=== PATIENT | male | born 1955 | race Caucasian/White ===

== ENCOUNTER 2019-09-18 07:42 | Outpatient (CLI) | payer OTHER, SELFPAY ==
--- NOTE | ~2019-09-18 | XR_ITS ---
XR chest 2V DATE: 09/18/2019 08:50 INDICATION: Hypertension. Nicotine dependence. Type 2 diabetes mellitus. TECHNIQUE: PA and lateral views COMPARISON: 08/13/2006 2 view chest FINDINGS: Normal heart size. There is aortic calcification and mild unfolding. No hilar or mediasti nal enlargement. No pulmonary infiltrate or consolidation, pulmonary vascular congestion or pleural effusion or pneumothorax. IMPRESSION: No active cardiopulmonary disease Aortic atherosclerosis Reviewed, dictated and finalized at location A.
[2019-09-18 08:48] LABS: Basophils Absolute Auto 0.1 K/mm3 (0.0-0.1); Basophils Percent Auto 0.7 % (0.2-1.2); Eosinophils Absolute Auto 0.1 K/mm3 (0-0.3); Hematocrit 48.1 % (42.0-52.0); Hemoglobin 17.3 g/dL (14.0-18.0); Immature Granulocyte Absolute 0.08 K/mm3 (0.00-0.031); Immature Granulocyte Percent A 0.9 % (0-0.5); Lymphocytes Absolute Auto 3.64 K/mm3 (0.9-3.2); Lymphocytes Percent Auto 38.9 % (18.3-44.2); Mean Corpuscular Hemoglobin 33.7 pg (26-34); Mean Corpuscular Volume 93.6 fl (80-100); Mean Platelet Volume 9.5 fl (7.4-10.4); Monocytes Absolute Auto 0.7 K/mm3 (0.1-0.6); Monocytes Percent Auto 7.4 % (2.6-8.5); Neutrophils Absolute Auto 4.8 K/mm3 (1.3-6.7); Neutrophils Percent Auto 51.1 % (45.5-73.1); Platelet Count Result 253 k/mm3 (150-375); Red Blood Count 5.14 M/mm3 (4.6-6.20); Red Cell Distribution Width 11.9 % (11.5-14.5); White Blood Count 9.4 K/mm3 (4.5-10.0)
[2019-09-18 08:58] LABS: Hemoglobin A1C 7.5 % (<5.7)
[2019-09-18 09:02] LABS: Cholesterol 264 mg/dL (0-200); HDL Direct 49 mg/dL; Triglycerides 98 mg/dL (<150)
[2019-09-18 09:13] LABS: LDL Cholesterol Direct 183 mg/dL
[2019-09-18 09:14] LABS: Alanine Aminotransferase 38 U/L (4-50); Albumin Level 4.6 g/dL (3.5-5.1); Alkaline Phosphatase 81 U/L (38-126); Aspartate Amino Transferase 36 U/L (17-59); Bilirubin,Total 0.8 mg/dL (0.2-1.3); Blood Urea Nitrogen 13 mg/dL (9-20); Calcium 9.2 mg/dL (8.4-10.2); Carbon Dioxide 25 mmol/L (22-30); Chloride 102 mmol/L (98-107); Estimated Glomerular Filt Rate > 60; Glucose 169 mg/dL (75-110); Potassium 4.2 mmol/L (3.4-5.0); Sodium 138 mmol/L (137-145)
[2019-09-18 09:18] LABS: Creatinine Urine 19.5 mg/dL
[2019-09-18 09:22] LABS: MALB Creatinine Ratio 36.4 mg/g (0-30); Microalbumin Urine Random 7.1 mg/L (0-16.7)
[2019-09-18 10:03] LABS: Hepatitis C Virus Antibody Negative (Negative)
== END 2019-09-18 07:43 | disposition home or self-care (01) ==
PROVIDERS: PCP Family Medicine; Visit Provider Family Medicine
DX: E11.9 Type 2 diabetes mellitus without complications (principal); F17.200 Nicotine dependence, unspecified, uncomplicated; I10 Essential (primary) hypertension; E78.2 Mixed hyperlipidemia; I70.0 Atherosclerosis of aorta
CPT/HCPCS: 36415; 71046; 80053; 80061; 82043; 83036; 85025; 86803

== ENCOUNTER 2019-12-05 07:01 | Outpatient (CLI) | payer OTHER, MEDICARE, SELFPAY ==
--- NOTE | ~2019-12-05 | CT_ITS ---
EXAMINATION: CT lung screening EXAM DATE: 12/05/2019 07:56 INDICATION: Personal history of nicotine dependence. TECHNIQUE: Spiral low dose CT of the chest without contrast. Axial, coronal and sagittal images were reviewed. The dose-length product (DLP) for this examination was 138.69 mGy-cm. The exposure was t ailored according to patient size (auto mA exposure control), and iterative reconstruction (ASIR) was used as additional dose reduction technique. There is no prior study for comparison. FINDINGS: Moderate peripheral paraseptal emphysema. Tracheobronchial tree is patent. There is no mediastinal, hilar or axillary lymphadenopathy. There are no pleural or pericardial effusions. Th ere is no pneumothorax. Heart normal in size. There is a left ventricular apical endocardial fat de position from prior infarction. There is severe coronary arterial calcification, arterial sclerosis. Adrenal adenomas. There is thoracic spondylosis without osteoblastic or osteolytic lesions identifie d. IMPRESSION: 1. Lung-RADS category 1S, negative (<1%chance of malignancy); recommend continued LDCT screening in 1 year. 2. Dense coronary artery calcifications with prior apical infarction; recommend cardiology consult i f not previously evaluated. Reviewed, dictated and finalized at location A. IMPRESSION: 1. Lung-RADS category 1S, negative (<1%chance of malignancy); recommend contin ued LDCT screening in 1 year. 2. Dense coronary artery calcifications with prior apical infarction; recommen d cardiology consult if not previously evaluated.
--- NOTE | 2019-12-05 08:00 | EST_ITS ---
Patient Info Name: Jared Mullins Age: 64 years : 1955 Gender: Male Ht: 72 in Wt: 190 lbs BSA: 2.10 m2 Exam Date: 12/05/2019 8:23 AM Exam Location: [facility] Patient Status: Outpatient Admit Date: 12/05/2019 Staff Ordering Physician: Sabine Childs MD Verifier Operator: Jose Curtis RDCS, RT Attending Provider: VERÓNICA CRUZ DO Referring Physician: Naz SMYTH; Exercise Technologist: Nora Montes RDCS Exercise Physician: Verónica Cruz DO Exam Type: CA stress echo Study Info Indications Z01.818 - Encounter for other preprocedural examination E78.2 - Mixed hyperlipidemia I10 - Essential (primary) hypertension Treadmill exercise stress echocardiogram is performed. Summary 1. 1. Inconclusive Angel exercise stress test for ischemic ST changes by ECG criteria as it is a submaximal stress test, achieving only 70% MPHR for age group. 2. 2. Poor functional capacity, achieving 6 METs of workload. 3. 3. Appropriate HR response to exercise. Baseline hypertension. 4. 4. Appropriate HR recovery at 1 minute post exercise. 5. 5. Inconclusive stress echocardiogram for ischemia by wall motion analysis due to suboptimal sonographic images. 6. 6. Patient informed of the above results. Stress Echo Findings Left Ventricle Suboptimal images as patient unable to hold breath when needed for image acquisition. Left Ventricle Normal LV systolic function, no wall motion abnormality. Protocol: Angel Stress ECG Details Stage: REST Duration (min): 3 min : 32 sec Speed (mph): 0.0 Grade (%): 0 HR (bpm): 67 SBP (mmHg): 158 DBP (mmHg): 86 METS: --- Stage: REST Duration (min): 10 min : 17 sec Speed (mph): 0.0 Grade (%): 0 HR (bpm): 69 SBP (mmHg): 158 DBP (mmHg): 86 METS: --- Stage: STAGE 1 Duration (min): 1 min : 0 sec Speed (mph): 1.7 Grade (%): 10 HR (bpm): 87 SBP (mmHg): 158 DBP (mmHg): 86 METS: --- Stage: STAGE 1 Duration (min): 2 min : 0 sec Speed (mph): 1.7 Grade (%): 10 HR (bpm): 98 SBP (mmHg): 158 DBP (mmHg): 86 METS: --- Stage: STAGE 1 Duration (min): 3 min : 0 sec Speed (mph): 1.7 Grade (%): 10 HR (bpm): 103 SBP (mmHg): 201 DBP (mmHg): 119 METS: --- Stage: STAGE 2 Duration (min): 0 min : 52 sec Speed (mph): 0.0 Grade (%): 0 HR (bpm): 106 SBP (mmHg): 198 DBP (mmHg): 106 METS: --- Stage: RECOVERY Duration (min): 0 min : 7 sec Speed (mph): 0.0 Grade (%): 0 HR (bpm): 104 SBP (mmHg): 198 DBP (mmHg): 106 METS: --- Stage: RECOVERY Duration (min): 1 min : 7 sec Speed (mph): 0.0 Grade (%): 0 HR (bpm): 88 SBP (mmHg): 198 DBP (mmHg): 106 METS: --- Stage: RECOVERY Duration (min): 2 min : 7 sec Speed (mph): 0.0 Grade (%): 0 HR (bpm): 82 SBP (mmHg): 198 DBP (mmHg): 106 METS: --- Stage: RECOVERY Duration (min): 3 min : 7 sec Speed (mph): 0.0 Grade (%): 0 HR (bpm): 82 SBP (mm
== END 2019-12-05 07:02 | disposition home or self-care (01) ==
LOC: ANHIMG 07:15
PROVIDERS: PCP Family Medicine; Visit Provider Family Medicine
DX: Z87.891 Personal history of nicotine dependence (principal); E11.9 Type 2 diabetes mellitus without complications; I10 Essential (primary) hypertension; E78.2 Mixed hyperlipidemia
CPT/HCPCS: 93351; G0297

== ENCOUNTER 2020-01-09 07:16 | Outpatient (CLI) | payer MEDICARE, SELFPAY ==
[2020-01-09 08:24] LABS: Cholesterol 246 mg/dL (0-200); HDL Direct 46 mg/dL; Triglycerides 100 mg/dL (<150)
[2020-01-09 08:35] LABS: LDL Cholesterol Direct 192 mg/dL
== END 2020-01-09 07:17 | disposition home or self-care (01) ==
PROVIDERS: PCP Family Medicine; Visit Provider Internal Medicine Cardiovascular Disease
DX: I25.10 Atherosclerotic heart disease of native coronary artery without angina pectoris (principal); I25.2 Old myocardial infarction; Z79.899 Other long term (current) drug therapy
CPT/HCPCS: 36415; 80061

== ENCOUNTER 2020-04-03 06:51 | Outpatient (CLI) | payer MEDICARE, SELFPAY ==
[2020-04-03 07:59] LABS: Cholesterol 133 mg/dL (0-200); HDL Direct 56 mg/dL; Triglycerides 69 mg/dL (<150)
[2020-04-03 08:11] LABS: LDL Cholesterol Direct 63 mg/dL
== END 2020-04-03 06:52 | disposition home or self-care (01) ==
PROVIDERS: PCP Family Medicine; Visit Provider Internal Medicine Cardiovascular Disease
DX: I25.10 Atherosclerotic heart disease of native coronary artery without angina pectoris (principal); E78.5 Hyperlipidemia, unspecified
CPT/HCPCS: 36415; 80061

== ENCOUNTER 2020-05-15 06:56 | Outpatient (CLI) | payer MEDICARE, SELFPAY ==
[2020-05-15 07:44] LABS: Alanine Aminotransferase 25 U/L (4-50); Albumin Level 4.4 g/dL (3.5-5.1); Alkaline Phosphatase 74 U/L (38-126); Anion Gap 5 mmol/L (8-16); Aspartate Amino Transferase 27 U/L (17-59); Bilirubin,Total 0.6 mg/dL (0.2-1.3); Blood Urea Nitrogen 17 mg/dL (9-20); Calcium 9.1 mg/dL (8.4-10.2); Carbon Dioxide 31 mmol/L (22-30); Chloride 100 mmol/L (98-107); Estimated Glomerular Filt Rate > 60; Glucose 132 mg/dL (75-110); Potassium 4.4 mmol/L (3.4-5.0); Sodium 136 mmol/L (137-145)
[2020-05-15 07:46] LABS: Hemoglobin A1C 6.2 % (<5.7)
== END 2020-05-15 06:57 | disposition home or self-care (01) ==
PROVIDERS: PCP Family Medicine; Visit Provider Physician Assistant Medical
DX: E11.9 Type 2 diabetes mellitus without complications (principal)
CPT/HCPCS: 36415; 80053; 83036

== ENCOUNTER 2020-11-01 06:51 | Outpatient (CLI) | payer MEDICARE, SELFPAY ==
[2020-11-01 07:29] LABS: Creatinine Urine 36.6 mg/dL
[2020-11-01 07:39] LABS: Alanine Aminotransferase 19 U/L (4-50); Albumin Level 4.2 g/dL (3.5-5.1); Alkaline Phosphatase 74 U/L (38-126); Anion Gap 5 mmol/L (8-16); Aspartate Amino Transferase 25 U/L (17-59); Bilirubin,Total 0.8 mg/dL (0.2-1.3); Blood Urea Nitrogen 16 mg/dL (9-20); Calcium 8.9 mg/dL (8.4-10.2); Carbon Dioxide 26 mmol/L (22-30); Chloride 100 mmol/L (98-107); Cholesterol 168 mg/dL (0-200); Estimated Glomerular Filt Rate > 60; Glucose 154 mg/dL (65-110); HDL Direct 67 mg/dL; Potassium 3.9 mmol/L (3.4-5.0); Sodium 131 mmol/L (137-145); Triglycerides 73 mg/dL (<150)
[2020-11-01 07:50] LABS: LDL Cholesterol Direct 84 mg/dL
[2020-11-01 08:11] LABS: MALB Creatinine Ratio 16.4 mg/g (0-30); Microalbumin Urine Random < 6.0 mg/L (0-16.7)
[2020-11-01 09:41] LABS: Hemoglobin A1C 6.4 % (<5.7)
== END 2020-11-01 06:52 | disposition home or self-care (01) ==
LOC: ANHLAB 06:54
PROVIDERS: PCP Family Medicine; Visit Provider Family Medicine
DX: E11.9 Type 2 diabetes mellitus without complications (principal)
CPT/HCPCS: 36415; 80053; 80061; 82043; 83036

== ENCOUNTER 2020-12-03 08:23 | Emergency (ER) | payer MEDICARE, SELFPAY ==
--- NOTE | ~2020-12-03 | XR_ITS ---
EXAMINATION: XR ribs LT 2V w CXR 2V DATE: 12/03/2020 09:19 INDICATION: Left rib pain post fall 2 days prior TECHNIQUE: PA and lateral views of the chest and 3 views of the left ribs were obtained. COMPARISON: Chest radiograph dated 09/18/[address] dated 12/05/2019 . Left shoulder radiographs dated 12/03/2020 FINDINGS: Minimally displaced fracture of the posterolateral left rib is poorly visualized on the current radio graphs which is more clearly evident on the immediately subsequent left shoulder radiographs. No othe r rib fractures identified. Subtle bullous emphysema at the periphery of both lungs. Mild bibasilar a telectasis. No pleural effusion or pneumothorax. Cardiomediastinal silhouette is normal. IMPRESSION: 1. Minimally displaced posterolateral left eighth rib fracture better appreciated on the left shoulde r radiographs. 2. Mild peripheral bullous emphysema. No pneumothorax. Reviewed, dictated and finalized at location A. IMPRESSION: 1. Minimally displaced posterolateral left eighth rib fracture better appreciat ed on the left shoulder radiographs. 2. Mild peripheral bullous emphysema. No pneumothorax.
--- NOTE | ~2020-12-03 | XR_ITS ---
EXAMINATION: XR shoulder LT min 2V DATE: 12/03/2020 09:19 INDICATION: Left shoulder pain post fall TECHNIQUE: AP internally and externally rotated, AP oblique externally rotated and transscapular Y vi ews of the left shoulder were obtained. COMPARISON: None FINDINGS: Normal alignment. No fracture at the left shoulder. There is however a minimally displaced fracture at the posterolateral left eighth rib. Minimal glenohumeral osteoarthritis and moderate acromioclavic ular osteoarthritis. Soft tissues are unremarkable. 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 No pneumothorax. IMPRESSION: 1. Minimally displaced posterior lateral left eighth rib fracture. 2. No acute osseous abnormality left shoulder with moderate acromial clavicular osteoarthritis. Reviewed, dictated and finalized at location A.
--- NOTE | 2020-12-03 08:26 | ED.FALL ---
HPI - Fall General Chief Complaint: Fall Stated Complaint: fall, left rib pain Time Seen by Provider: 12/03/20 08:26 Source: patient Mode of arrival: ambulatory Limitations: no limitations History of Present Illness HPI Narrative: The patient is a 65 yo male with a history of HTN, HLD who presents to the ER for evaluation of rib pain following a ground level fall. Patient states that he tripped while walking his dog, causing him to fall onto his left side two days ago. Patient with left shoulder pain, left sided rib pain. Patient also hurt his left knee with the fall. Patient was feeling better and now with worsening left rib pain this morning. No central chest pain, dyspnea, diaphoresis. No palpitations. Pt denies currently lower extremity pain. Pt took percocet for pain that did improve it. He has also used a binder to help with pain. Patient did some power washing yesterday which exacerbated his left sided rib pain, prompting his visit today. Related Data Home Medications Medication Instructions Recorded Confirmed aspirin 81 mg chewable tablet 81 mg PO DAILY 02/18/19 11/02/20 Allergies Allergy/AdvReac Type Severity Reaction Status Date / Time metformin Allergy Unknown hot flashes Verified 12/03/20 08:37 methylprednisolone Allergy Unknown severe leg Verified 12/03/20 08:37 cramps simvastatin Allergy Unknown severe leg Verified 12/03/20 08:37 cramps atorvastatin AdvReac myalgias Verified 12/03/20 08:37 rosuvastatin AdvReac myalgias Verified 12/03/20 08:37 Review of Systems Review of Systems: CONSTITUTIONAL: Denies fever, chills, or sweats. EYES: Denies visual changes, redness, or discharge. ENT: Denies rhinorrhea, congestion, sore throat, or otalgia. CARDIOVASCULAR: Denies chest pain, palpitations, or edema. RESPIRATORY: Denies cough or dyspnea. Reports left chest wall pain. GASTROINTESTINAL: Denies abdominal pain, nausea, vomiting, or diarrhea. GENITOURINARY: Denies dysuria or hematuria. SKIN: Denies rash or itching. Reports abrasion to left shoulder MUSCULOSKELETAL: Reports rib pain, denies other extremity pain NEUROLOGIC: Denies headache, numbness, or weakness. [facility] Past Medical History Medical History Cubital tunnel syndrome Tinnitus Surgical History Surgical History History of appendectomy (~2007) History of carpal tunnel repair (~2017) bilateral History of heart artery stent (~2009) 2 History of knee surgery (~2005) left meniscus tear S/P cubital tunnel release (~2018) bilateral Family History Family History Father Hypertension Family history of cardiovascular disease Mother Family history of malignant neoplasm of breast in first degree relative Other Family history of malignant neoplasm of breast Social History Social History Smoking packs per day: 1 Smoking cigarettes per day: 20.0 Tobacco type: cigarettes Second hand tobacco smoke exposure: Yes Alcohol intake: current Drinks per week: 14 Substance use: never Substance use type: does not use Gender identity (if verbalized by the patient): Male Spiritual care concerns: No Agree to blood products: Yes Exam Narrative: Nursing note and vitals reviewed. CONSTITUTIONAL: The patient appears well-developed and well-nourished. No distress. HEAD: Normocephalic and atraumatic. EYES: PERRL, EOMI, normal conjunctiva, anicteric EARS: External ears clear bilaterally, no hemotympanum MOUTH: OP clear, no erythema, exudates NECK: midline trachea, supple, FROM. No midline cervical spinal tenderness. CARDIOVASCULAR: Normal rate, regular rhythm, normal heart sounds and intact distal pulses. No murmurs, rubs, gallops. PULMONARY: Effort normal and breath sounds normal. No respiratory distress. The patient
[2020-12-03 08:29] VITALS: PULSE 69; RESP 18; TEMP 36.7; O2SAT 97
[2020-12-03] MEDS: LIDOCAINE 5% PATCH 1 PATCH TRANSDERM (09:44)
== END 2020-12-03 11:10 | disposition home or self-care (01) ==
PROVIDERS: Emergency Provider Emergency Medicine; PCP Family Medicine
DX: S22.32XA Fracture of one rib, left side, initial encounter for closed fracture (principal); I10 Essential (primary) hypertension; E78.5 Hyperlipidemia, unspecified; Z95.5 Presence of coronary angioplasty implant and graft; F17.210 Nicotine dependence, cigarettes, uncomplicated; Z79.82 Long term (current) use of aspirin; J43.9 Emphysema, unspecified; W01.0XXA Fall on same level from slipping, tripping and stumbling without subsequent striking against object, initial encounter; Y93.K1 Activity, walking an animal
CPT/HCPCS: 71046; 71100; 73030; 99284; A9270

== ENCOUNTER 2021-05-02 07:06 | Outpatient (CLI) | payer MEDICARE, SELFPAY ==
[2021-05-02 07:51] LABS: Alanine Aminotransferase 25 U/L (4-50); Albumin Level 4.5 g/dL (3.5-5.1); Alkaline Phosphatase 73 U/L (38-126); Anion Gap 6 mmol/L (8-16); Aspartate Amino Transferase 26 U/L (17-59); Bilirubin,Total 0.7 mg/dL (0.2-1.3); Blood Urea Nitrogen 21 mg/dL (9-20); Calcium 8.8 mg/dL (8.4-10.2); Carbon Dioxide 26 mmol/L (22-30); Chloride 102 mmol/L (98-107); Cholesterol 201 mg/dL (0-200); Estimated Glomerular Filt Rate > 60; Glucose 130 mg/dL (65-110); HDL Direct 58 mg/dL; Potassium 4.1 mmol/L (3.4-5.0); Sodium 134 mmol/L (137-145); Triglycerides 111 mg/dL (<150)
[2021-05-02 08:02] LABS: LDL Cholesterol Direct 109 mg/dL
[2021-05-02 08:03] LABS: Hemoglobin A1C 6.4 % (<5.7)
[2021-05-02 08:17] LABS: Creatinine Urine 39.8 mg/dL
[2021-05-02 08:21] LABS: MALB Creatinine Ratio 20.6 mg/g (0-30); Microalbumin Urine Random 8.2 mg/L (0-16.7)
[2021-05-02 08:24] LABS: Prostate Specific Antigen 0.6 ng/mL (< OR = 4.0)
== END 2021-05-02 07:07 | disposition home or self-care (01) ==
LOC: ANHLAB 07:08
PROVIDERS: PCP Family Medicine; Visit Provider Family Medicine
DX: E11.9 Type 2 diabetes mellitus without complications (principal); E78.2 Mixed hyperlipidemia; Z12.5 Encounter for screening for malignant neoplasm of prostate
CPT/HCPCS: 36415; 80053; 80061; 82043; 83036; 84153; G0103

== ENCOUNTER 2021-05-27 06:46 | Outpatient (CLI) | payer MEDICARE, SELFPAY ==
--- NOTE | ~2021-05-27 | CT_ITS ---
EXAMINATION: CT lung screening DATE: 05/27/2021 07:06 INDICATION: Personal history of nicotine dependence, current smoker with 30 pack year history TECHNIQUE: Computed tomography (CT) of the chest was performed without intravenous contrast. The dose -length product (DLP) was 164.99 mGy-cm. Automated exposure control and iterative reconstruction tech Shooger were employed. COMPARISON: 12/05/2019 FINDINGS: There is moderate emphysema. No suspicious pulmonary nodules are identified. There is no pl eural effusion or pneumothorax. The lungs are free of acute opacities. No pathologically enlarged tho racic lymph nodes are identified. The heart size is normal. There is calcified coronary artery athero sclerosis. Subendocardial fat deposition is noted in the left ventricle. There is also slight ventric ular dilatation. Findings are consistent with prior myocardial infarction. Low attenuation thickening of the adrenal glands likely reflects adrenal adenomas. There is mild thoracic spondylosis. IMPRESSION: 1. Lung-RADS category 1: Negative. Continue annual screening with noncontrast low-dose chest CT in 12 months. Reviewed, dictated and finalized at location B. IMPRESSION: 1. Lung-RADS category 1: Negative. Continue annual screening with noncontrast l ow-dose chest CT in 12 months.
== END 2021-05-27 06:47 | disposition home or self-care (01) ==
PROVIDERS: PCP Family Medicine; Visit Provider Family Medicine
DX: Z87.891 Personal history of nicotine dependence (principal)
CPT/HCPCS: 71271

== ENCOUNTER 2021-07-22 10:01 | Inpatient (IN) | payer MEDICARE, SELFPAY ==
[2021-07-22] VITALS (10 sets, daily range): BP systolic 97–146; BP diastolic 56–109; PULSE 79–89; RESP 16–24; TEMP 36.6–39.4; O2SAT 92–100; BMI 24.4
--- NOTE | ~2021-07-22 | XR_ITS ---
EXAMINATION: XR shoulder LT min 2V DATE: 07/22/2021 18:04 INDICATION: Left shoulder pain. TECHNIQUE: 4 views of left shoulder were obtained. COMPARISON: Left shoulder radiographs 12/03/2020 FINDINGS: Bone alignment is normal. No acute fracture. There is an old healed fracture of left eighth rib. There is severe osteoarthritis of acromioclavicular joint and mild osteoarthritis of glenohumer al joint. IMPRESSION: 1. Polyarticular osteoarthritis. Reviewed, dictated and finalized at location A.
--- NOTE | ~2021-07-22 | US_ITS ---
EXAMINATION:US venous doppler LE RT INDICATION:Right leg pain TECHNIQUE: Multiple grayscale, color flow and Doppler images of the right lower extremity deep venous systems were obtained and reviewed. COMPARISON:No prior studies for comparison. FINDINGS: The common femoral, superficial femoral and popliteal veins demonstrate normal respiratory variation, augmentation and compressibility. Color flow is also seen within the posterior tibial, pe roneal, greater saphenous and profunda veins. IMPRESSION: 1: No lower extremity deep venous thrombosis. Reviewed, dictated and finalized at location B.
--- NOTE | ~2021-07-22 | XR_ITS ---
EXAM: XR ankle RT min 3V, XR foot RT min 3V DATE: 07/26/2021 13:50 HISTORY: edema, pain . COMPARISON: None available. FINDINGS: Normal mineralization. No fracture or dislocation. No lytic or blastic lesion. Moderate alarcon llux valgus. Severe degenerative change at the first MTP with mild degenerative changes in the midfoo t and tibiotalar joint. Plantar enthesopathy. No erosion or periosteal change. Soft tissues within no rmal limits. IMPRESSION: No acute osseous finding in the right foot or right ankle. Reviewed, dictated and finalized at location K. IMPRESSION: No acute osseous finding in the right foot or right ankle.
--- NOTE | ~2021-07-22 | XR_ITS ---
EXAMINATION: XR chest 2V DATE: 07/28/2021 13:47 INDICATION: Cough. TECHNIQUE: Frontal and lateral views of the chest were obtained. COMPARISON: Chest 2 views 07/22/2021, chest CT 05/27/2021 FINDINGS: There are small pleural effusions. There is a diffuse interstitial pattern in the lungs con sistent mild pulmonary edema. There are airspace opacities at the lung bases, likely atelectasis. No pneumothorax. The heart size is normal. There is an old healed left rib fracture. IMPRESSION: 1. Mild pulmonary edema. 2. Small pleural effusions. Reviewed, dictated and finalized at location A.
--- NOTE | ~2021-07-22 | XR_ITS ---
XR chest 2V 07/22/2021 10:49 Indication: Left-sided chest pain Procedure: 2 view chest Comparison: 12/03/2020 Findings: There is a healed left rib fracture. The lungs are hyperinflated which is consistent with, but not diagnostic of chronic obstructive pulmonary disease. No focal air space disease, pulmonary ed marzena, pleural effusion or suspected pneumothorax. Mild chronic interstitial infiltrates. Impression: 1: No acute cardiopulmonary disease. Reviewed, dictated and finalized at location B. Impression: 1: No acute cardiopulmonary disease.
--- NOTE | 2021-07-22 10:11 | ECG_ITS ---
Measurements Intervals [place] Rate: 86 P: 11 NV: 189 QRS: -35 QRSD: 117 T: 57 QT: 362 QTc: 433 Interpretive Statements SINUS RHYTHM LEFT AXIS DEVIATION POSSIBLE LEFT ATRIAL ENLARGEMENT BORDERLINE R WAVE PROGRESSION, ANTERIOR LEADS BASELINE ARTIFACT- I, II, III, AVR, AVL, AVF, V6 BORDERLINE ECG Electronically Signed On 07-22-2021 11:53:17 CDT by Mikey Morocho D.O.
[2021-07-22 10:31] LABS: Basophils Percent Auto 0.2 % (0.2-1.2); Hematocrit 43.1 % (42.0-52.0); Hemoglobin 14.8 g/dL (14.0-18.0); Immature Granulocyte Absolute 0.15 K/mm3 (0.00-0.031); Lymphocytes Absolute Auto 1.15 K/mm3 (0.9-3.2); Lymphocytes Percent Auto 7.5 % (18.3-44.2); Mean Corpuscular HGB Conc 34.3 g/dl (32-36); Mean Corpuscular Hemoglobin 33.8 pg (26-34); Mean Corpuscular Volume 98.4 fl (80-100); Mean Platelet Volume 10.5 fl (7.4-10.4); Monocytes Percent Auto 6.4 % (2.6-8.5); Neutrophils Absolute Auto 13.1 K/mm3 (1.3-6.7); Neutrophils Percent Auto 84.9 % (45.5-73.1); Platelet Count Result 121 k/mm3 (150-375); Red Blood Count 4.38 M/mm3 (4.6-6.20); Red Cell Distribution Width 13.2 % (11.5-14.5); White Blood Count 15.4 K/mm3 (4.5-10.0)
[2021-07-22 10:44] LABS: Alanine Aminotransferase 23 U/L (6-50); Albumin Level 3.8 g/dL (3.5-5.1); Alkaline Phosphatase 70 U/L (38-126); Anion Gap 10 mmol/L (8-16); Aspartate Amino Transferase 32 U/L (17-59); Blood Urea Nitrogen 42 mg/dL (9-20); Calcium 8.2 mg/dL (8.4-10.2); Carbon Dioxide 21 mmol/L (22-30); Chloride 94 mmol/L (98-107); Estimated CRCL calculation 80 ml/min; Estimated Glomerular Filt Rate > 60; Glucose 371 mg/dL (65-110); Sodium 125 mmol/L (137-145)
[2021-07-22 11:27] LABS: Add Urine Microscopic? YES; Appearance Urine Clear (Clear); Bilirubin Urine Negative (Negative); Blood Urine Negative (Negative); Color Urine Yellow (Yellow); Glucose Urine UA 3+ mg/dL (Negative); Ketones Urine 1+ mg/dL (Negative); Leukocyte Esterase Ur Negative LEU/UL (Negative); Nitrate Urine Negative (Negative); Protein Urine Trace mg/dL (Negative); Specific Grav Ur 1.015 (1.001-1.035); Urobilinogen Urine 0.2 mg/dL (<2.0); pH Urine 5.5 (5.0-9.0)
[2021-07-22 11:34] LABS: Bacteria Urine 3+ /hpf; Mucus Urine Rare /lpf; RBC Urine 0-2 /hpf (0-2); WBC Urine 0-3 /hpf
--- NOTE | 2021-07-22 11:41 | PC.NURSE ---
Patient reports pain with palpation of posterior calf. Patient also reports history of a DVT many years ago. Denies SOB or chest pain.
--- NOTE | 2021-07-22 11:56 | ED.GENADULT ---
HPI - General Adult General Chief complaint: Weakness Stated complaint: weakness Time Seen by Provider: 07/22/21 11:55 Source: patient and family Limitations: no limitations History of Present Illness HPI narrative: 65 years old white male presented to the ED with severe pain at the right buttock all the way down to his right foot started 3 days ago after strenuous physical work including up and down a ladder numerous of time with a steel boot. Associated with chills, and fever which gradually getting worse. 1 day later patient noticed redness and swelling of the right foot. History of diabetes, hypertension Related Data Home Medications Medication Instructions Recorded Confirmed aspirin 81 mg chewable tablet 81 mg PO DAILY 02/18/19 07/22/21 alirocumab [Praluent Syringe] mg SUBCUT 07/22/21 empagliflozin-metformin [Synjardy 1 tablet PO DAILY 07/22/21 07/22/21 XR] Allergies Allergy/AdvReac Type Severity Reaction Status Date / Time metformin Allergy Unknown hot flashes Verified 05/31/21 09:18 methylprednisolone Allergy Unknown severe leg Verified 05/31/21 09:18 cramps simvastatin Allergy Unknown severe leg Verified 05/31/21 09:18 cramps sertraline AdvReac Intermediate diarrhea, Verified 05/31/21 09:41 sleep disruption atorvastatin AdvReac myalgias Verified 05/31/21 09:18 rosuvastatin AdvReac myalgias Verified 05/31/21 09:18 Review of Systems Review of Systems: All systems reviewed & are unremarkable except as noted in HPI and below PMFSH Past Medical History Medical History Controlled substance agreement signed 02-18-19 3.2.22 no longer on controlled substances. Cubital tunnel syndrome Right rotator cuff tear arthropathy Tinnitus Umbilical hernia without mention of obstruction or gangrene Surgical History Surgical History History of appendectomy (~2007) History of carpal tunnel repair (~2016) bilateral History of heart artery stent (~2009) 2 History of knee surgery (~2005) left meniscus tear S/P cubital tunnel release (~2017) bilateral Family History Family History Father Hypertension Family history of cardiovascular disease Mother Family history of malignant neoplasm of breast in first degree relative Other Family history of malignant neoplasm of breast Social History Social History Smoking packs per day: 1 Smoking cigarettes per day: 20.0 Tobacco type: cigarettes Second hand tobacco smoke exposure: Yes Alcohol intake: current Drinks per week: 14 Substance use: never Substance use type: does not use Gender identity (if verbalized by the patient): Male Spiritual care concerns: No Agree to blood products: Yes Exam Narrative: General appearance: Well-developed, well-nourished Skin: Normal color Head: Normocephalic, nontraumatic Eyes: Clear conjunctiva ENT: Oropharynx normal, ears normal, nose normal Neck: Supple, nontender Chest and respiratory: Airway patent, no respiratory distress, no accessory muscle use Heart: Regular rate/rhythm Abdomen: Soft, nontender, no organomegaly, quiet bowel sounds Vascular: Normal peripheral pulses, normal capillary refill. Musculoskeletal: Right lower extremity showed diffuse tenderness, no swelling, no deformity, no rash, right foot and ankle showed diffuse erythema, warm to touch, diffusely tender. Right straight leg raising test is positive Neurologic: Alert and oriented ?3, SOLAR PANEL TECHNICIAN is normal as tested, no gross motor deficit
[2021-07-22] MEDS: ONDANSETRON INJ 4 MG/2 ML VIAL IV PUSH (12:23)
[2021-07-22] MEDS: MORPHINE SULFATE (*CRX) 4 MG/ML INJ IV PUSH ×2 (12:24→14:18)
[2021-07-22 12:38] LABS: Lactic Acid Reflex 2.6 mmol/L (0.7-2.0)
[2021-07-22 13:16] LABS: SARS-CoV-2 RNA PCR Negative
--- NOTE | 2021-07-22 13:20 | PC.NURSE ---
Patient taken to Doppler, Vanc not started yet because patient not in room.
--- NOTE | 2021-07-22 14:15 | PM.IMHP ---
H&P: HPI History of Present Illness Date/Time: 07/22/21 14:15 Chief Complaint: Pain all over. Narrative: This is a 65-year-old male smoker with coronary artery disease, hypertension, dyslipidemia, and diabetes who presented to the emergency department with complaints of pain all over. On Sunday he spent 6-1/2 hours outside power washing his cabin. The next day he was stiff and sore all over and unfortunately his diffuse muscle cramps and soreness have gotten worse instead of better. Today he could barely make it to the car with the help of his daughter and due to generalized weakness and significant pain in his right lower leg and foot with weightbearing. His appetite and oral intake have been poor the last 2 days which he has attributed to a recent increase in his metformin dose. In the ER he was noted to have cellulitis of the right foot and he is being admitted in this setting. Currently he is feeling somewhat better after receiving IV pain medication. He endorses a subjective fever. He denies syncope and near syncope. No sinus congestion, rhinorrhea, otalgia, odynophagia, or cough. He denies sick contacts. No open wounds to his knowledge. He has not had vomiting, diarrhea, or dysuria. Review of Systems Review of Systems: Twelve systems were reviewed. Diabetes is well controlled with a recent hemoglobin A1c of less than 7%. Glucose today was over 300, however. Patient denies blurry vision, polydipsia, and polyuria. No chest pain or shortness of breath. No focal weakness or paresthesias. No numbness or tingling. No redness or swelling over joints. No rash. Except as documented, all other systems were reviewed and are negative. [facility] Past Medical History Medical History Coronary artery disease History of inferior VA. Essential hypertension Mixed hyperlipidemia Tobacco use disorder Type 2 diabetes mellitus Surgical History Surgical History Cubital tunnel syndrome, bilateral (2018) Status post release. History of appendectomy (2007) History of arthroscopy of left knee (2005) Meniscal repair. History of bilateral carpal tunnel release (2016) History of heart artery stent (2019) Inferior VA --> LUIS to proximal RCA. Staged PCI with LUIS to distal left circumflex. Family History Family History Father Hypertension Family history of cardiovascular disease Mother Family history of malignant neoplasm of breast in first degree relative Other Family history of malignant neoplasm of breast Social History Social History Social History: Surrogate decision maker: Ashely Mullins, spouse. Code status: Full code. Years smoked: 45 Smoking status: Current every day smoker Tobacco type: cigarettes Second hand tobacco smoke exposure: Yes Alcohol intake: current Drinks per week: 14 Alcohol use details: 3-4 beers, most nights of the week. 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 Spiritual care concerns: No Agree to blood products: Yes Meds Home Medications and Allergies Home Medications Medication Instructions Recorded Confirmed Type aspirin 81 mg chewable tablet 81 mg PO DAILY 02/18/19 07/22/21 History lisinopril 20 2 tablet PO DAILY #180 tablet 05/04/21 07/22/21 Rx mg-hydrochlorothiazide 12.5 mg tablet alirocumab [Praluent Syringe] See Rx Instructions .ROUTE .COMPLEX 07/22/21 07/22/21 History empagliflozin-metformin [Synjardy 500 tablet PO DAILY 07/22/21 07/22/21 History XR] Allergies Allergy/AdvReac Type Severity Reaction Status Date / Time metformin Allergy Unknown hot flashes Verified 05/31/21 09:18 methylprednisolone Allergy Unknown severe leg Verified 05/31/21 09:18 c
--- NOTE | 2021-07-22 15:12 | PC.NURSE ---
Patient care report called to GISELA Carvajal. All questions answered at this time.
[2021-07-22 15:27] LABS: Reflex Lactic Acid Yes or No Add Lactic
[2021-07-22 15:44] LABS: Lactic Acid Reflex 1.8 mmol/L (0.7-2.0)
--- NOTE | 2021-07-22 15:54 | ADMGEN ---
This patient, Jared Mullins, was admitted to 3 [facility] Surg Room 323-01 at 1545. Patient/family oriented to hospital policies and general routines including ID bracelet, bed and alarms, visiting hours, pain management, procedures, bathroom and other care routines, personal items, smoking policy, room service/diet, and visiting hours. Information on how to activate the Rapid Response Team has been discussed. Patient/Family are encouraged to report perceived risks to care and to ask questions if they do not understand what they are told or what they should do.
[2021-07-22 15:59] LABS: Hemoglobin A1C 6.2 % (<5.7)
[2021-07-22 16:25] LABS: Anion Gap 5 mmol/L (8-16); Blood Urea Nitrogen 41 mg/dL (9-20); Calcium 7.7 mg/dL (8.4-10.2); Carbon Dioxide 27 mmol/L (22-30); Chloride 95 mmol/L (98-107); Creatine Kinase 134 U/L (55-170); Estimated CRCL calculation 72 ml/min; Estimated Glomerular Filt Rate > 60; Glucose 263 mg/dL (65-110); Potassium 4.2 mmol/L (3.4-5.0); Sodium 127 mmol/L (137-145); Uric Acid 6.5 mg/dL (3.5-8.5)
[2021-07-22 16:33] LABS: CRP 26.5 mg/dL (<1.0)
[2021-07-22 16:35] LABS: Glucose Point of Care 228 mg/dl (65-105)
[2021-07-22] MEDS: MORPHINE SULFATE (*CRX) 2 MG/ML INJ IV PUSH (17:17)
[2021-07-22] MEDS: INSULIN ASPART (*BKC) 100 UNITS/ML SUB-Q (17:17)
[2021-07-22] MEDS: SODIUM CHLORIDE 0.9% IV 1,000 ML 200 ML IV CONT (17:19)
[2021-07-22] MEDS: SODIUM CHLORIDE 0.9% IV 2,500 ML/1,000 ML BAG 999 ML IV CONT ×3 (18:27→21:02)
[2021-07-22] MEDS: ACETAMINOPHEN 325 MG TABLET 650 MG PO (20:58)
[2021-07-22 21:07] LABS: Glucose Point of Care 250 mg/dl (65-105)
[2021-07-22 23:36] LABS: Sodium 131 mmol/L (137-145)
[2021-07-23] MEDS: oxyCODONE HCL (*CRX) 10 MG TAB SR 12HR PO ×4 (01:07→21:15)
[2021-07-23] MEDS: SODIUM CHLORIDE 0.9% IV 1,000 ML 200 ML IV CONT ×4 (01:37→22:20)
[2021-07-23 05:38] VITALS: BP 134/53; PULSE 75; RESP 16; TEMP 37.3; O2SAT 90
[2021-07-23 06:25] LABS: Basophils Percent Auto 0.2 % (0.2-1.2); Eosinophils Percent Auto 0.2 % (0-4.4); Hematocrit 40.9 % (42.0-52.0); Hemoglobin 13.9 g/dL (14.0-18.0); Immature Granulocyte Absolute 0.07 K/mm3 (0.00-0.031); Immature Granulocyte Percent A 0.6 % (0-0.5); Lymphocytes Absolute Auto 1.56 K/mm3 (0.9-3.2); Mean Corpuscular Hemoglobin 33.9 pg (26-34); Mean Corpuscular Volume 99.8 fl (80-100); Mean Platelet Volume 11.1 fl (7.4-10.4); Monocytes Absolute Auto 1.2 K/mm3 (0.1-0.6); Monocytes Percent Auto 9.7 % (2.6-8.5); Neutrophils Absolute Auto 9.2 K/mm3 (1.3-6.7); Neutrophils Percent Auto 76.3 % (45.5-73.1); Platelet Count Result 102 k/mm3 (150-375); Red Cell Distribution Width 13.3 % (11.5-14.5)
[2021-07-23 06:40] LABS: Anion Gap 8 mmol/L (8-16); Blood Urea Nitrogen 26 mg/dL (9-20); Calcium 7.5 mg/dL (8.4-10.2); Carbon Dioxide 22 mmol/L (22-30); Chloride 103 mmol/L (98-107); Estimated CRCL calculation 101 ml/min; Estimated Glomerular Filt Rate > 60; Glucose 209 mg/dL (65-110); Magnesium 2.3 mg/dL (1.6-2.3); Potassium 3.7 mmol/L (3.4-5.0); Sodium 133 mmol/L (137-145)
--- NOTE | 2021-07-23 07:20 | PC.NURSE ---
Critical blood culture results reported per lab. Results given to day shift GISELA Bernal.
[2021-07-23 07:47] LABS: Glucose Point of Care 195 mg/dl (65-105)
[2021-07-23 08:25] VITALS: O2SAT 94
[2021-07-23] MEDS: EMPAGLIFLOZIN 12.5 MG TABLET BY MOUTH (08:48)
[2021-07-23] MEDS: ASPIRIN 81 MG CHEWABLE TABLET PO (08:48)
[2021-07-23] MEDS: metFORMIN HCL XR 500 MG TAB.SR.24H 1000 MG PO (08:48)
[2021-07-23 11:42] LABS: Glucose Point of Care 172 mg/dl (65-105)
[2021-07-23 14:00] VITALS: BP 122/50; PULSE 48; RESP 20; TEMP 37.9; O2SAT 90
--- NOTE | 2021-07-23 14:25 | PM.IMPN ---
Progress Note: A&P Assessment and Plan (1) Sepsis: Code(s): A41.9 - Sepsis, unspecified organism Status: Acute Assessment and Plan: Continue fluid hydration Blood cultures have been obtained and are pending. Pt feels unwell spiking fevers flushed tired (2) Cellulitis of right foot: Code(s): L03.115 - Cellulitis of right lower limb Status: Acute Assessment and Plan: Continue imipenem and vancomycin (3) Muscle cramps: Code(s): R25.2 - Cramp and spasm Status: Acute Assessment and Plan: Continue hydration Xray of shoulder shows OA US of leg is negative for clots (4) Type 2 diabetes mellitus with hyperglycemia: Code(s): E11.65 - Type 2 diabetes mellitus with hyperglycemia Status: Acute Assessment and Plan: glucose is 209, pt was non compliant with his DM medication, Synjardy for couple of days. Initiate sliding insulin, Accu-Cheks, and hypoglycemic protocol. Follow hemoglobin A1c. (5) Hyponatremia: Code(s): E87.1 - Hypo-osmolality and hyponatremia Status: Acute Assessment and Plan: Sodium improved to 133 Low sodium likely secondary to hyperglycemic effect (6) Generalized weakness: Code(s): R53.1 - Weakness Status: Acute Assessment and Plan: Secondary to sepsis, infection, and hyponatremia. I will check for GOUT Continue PT/ OT Pt is usually a active independent person (7) Essential hypertension: Code(s): I10 - Essential (primary) hypertension Status: Acute Assessment and Plan: BP is NL (8) Tobacco use disorder: Code(s): F17.200 - Nicotine dependence, unspecified, uncomplicated Status: Acute Assessment and Plan: Smoking cessation is encouraged. Declines the need for nicotine patch at this time. Subjective Date/time seen: 07/23/21 14:25 Interval history: 65-year-old male smoker with coronary artery disease, hypertension, dyslipidemia, and diabetes who presented to the emergency department with complaints of pain all over. On Sunday he spent 6-1/2 hours outside power washing his cabin. The next day he was stiff and sore all over and unfortunately his diffuse muscle cramps and soreness have gotten worse instead of better. 07/23 Pt is admitted with R foot cellulitis and sepsis. Pt states his R foot is very sore and difficult to move his R foot and R knee. ? gout flare will need to check Review of Systems Review of Systems: All systems reviewed & are unremarkable except as noted in HPI and below Exam Const: General: other (tired weak unwell ) Orientation/consciousness: oriented to person HENMT: Head: normal to inspection Resp: Effort & Inspection: no respiratory distress Auscultation: no rhonchi and no wheezes Cardio: Rate: regular rate Rhythm: regular rhythm GI: Inspection: normal to inspection GI Palp: No abdominal tenderness, No Guarding due to palpation present (GI) and No Hepatomegaly present Auscultation: normal bowel sounds Neuro: General: oriented to person Extrem: Other: Severe TTP over R foot decreased ROM due to pain, redness and swelling of big toe and ankle and R knee Objective Data Vital Signs Vital Signs: Vital Signs - 24 hr 07/22/21 14:45 07/22/21 20:00 07/22/21 20:58 Temperature 39.4 C H Pulse Rate 89 89 Respiratory Rate 16 16 Blood Pressure 97/56 L Pulse Oximetry 94 94 07/22/21 22:00 07/23/21 05:38 07/23/21 08:25 Temperature 37.7 C H 37.3 C Pulse Rate 85 75 Respiratory Rate 16 16 Blood Pressure 104/56 L 134/53 L Pulse Oximetry 92 90 94 Intake/Output Intake/Output: Intake & Output 07/20/21 07/21/21 07/22/21 07/23/21 23:59 23:59 23:59 23:59 Intake Total 4640 3570 Output Total 600 950 Balance 4040 2620 Meds/Results Medications: Active Medications Generic Name Dose Route Start Last Admin Trade Name Freq PRN Reason Stop Dose Admin Acetamin
[2021-07-23] MEDS: ACETAMINOPHEN 325 MG TABLET 650 MG PO (14:39)
[2021-07-23 15:16] LABS: Uric Acid 4.2 mg/dL (3.5-8.5)
[2021-07-23 15:33] VITALS: BP 122/56; PULSE 50; RESP 20; TEMP 36.7; O2SAT 91
[2021-07-23 16:31] LABS: Glucose Point of Care 222 mg/dl (65-105)
[2021-07-23] MEDS: INSULIN ASPART (*BKC) 100 UNITS/ML SUB-Q (17:00)
[2021-07-23 20:00] VITALS: PULSE 49; RESP 16; O2SAT 90
[2021-07-23 20:38] LABS: Glucose Point of Care 202 mg/dl (65-105)
[2021-07-23 21:52] VITALS: BP 137/43; PULSE 49; RESP 16; TEMP 37.1; O2SAT 90
[2021-07-23] MEDS: MORPHINE SULFATE (*CRX) 2 MG/ML INJ IV PUSH (22:30)
[2021-07-24] MEDS: DICLOFENAC SODIUM 1% 100 GM GEL (*BKC) 1 APPLIC TOPICAL (01:53)
[2021-07-24 02:02] LABS: Vancomycin Trough 5.9 ug/mL (10.0-20.0)
[2021-07-24] MEDS: SODIUM CHLORIDE 0.9% IV 1,000 ML 200 ML IV CONT ×2 (05:04→16:22)
[2021-07-24 05:46] VITALS: BP 151/66; PULSE 74; RESP 16; TEMP 37.6; O2SAT 99
[2021-07-24 07:54] LABS: Basophils Percent Auto 0.2 % (0.2-1.2); Eosinophils Percent Auto 0.2 % (0-4.4); Hematocrit 38.1 % (42.0-52.0); Hemoglobin 12.8 g/dL (14.0-18.0); Immature Granulocyte Absolute 0.16 K/mm3 (0.00-0.031); Immature Granulocyte Percent A 1.1 % (0-0.5); Lymphocytes Absolute Auto 1.94 K/mm3 (0.9-3.2); Lymphocytes Percent Auto 13.6 % (18.3-44.2); Mean Corpuscular HGB Conc 33.6 g/dl (32-36); Mean Corpuscular Hemoglobin 33.4 pg (26-34); Mean Corpuscular Volume 99.5 fl (80-100); Mean Platelet Volume 10.4 fl (7.4-10.4); Monocytes Absolute Auto 1.4 K/mm3 (0.1-0.6); Neutrophils Absolute Auto 10.7 K/mm3 (1.3-6.7); Neutrophils Percent Auto 74.9 % (45.5-73.1); Platelet Count Result 114 k/mm3 (150-375); Red Blood Count 3.83 M/mm3 (4.6-6.20); Red Cell Distribution Width 13.4 % (11.5-14.5); White Blood Count 14.3 K/mm3 (4.5-10.0)
[2021-07-24 07:58] LABS: Glucose Point of Care 150 mg/dl (65-105)
[2021-07-24 07:58] LABS: Glucose Point of Care 440 mg/dl (65-105)
[2021-07-24 08:01] LABS: Glucose Point of Care 145 mg/dl (65-105)
[2021-07-24 08:03] LABS: Alanine Aminotransferase 20 U/L (6-50); Albumin Level 2.9 g/dL (3.5-5.1); Alkaline Phosphatase 64 U/L (38-126); Anion Gap 8 mmol/L (8-16); Aspartate Amino Transferase 27 U/L (17-59); Blood Urea Nitrogen 16 mg/dL (9-20); Calcium 7.4 mg/dL (8.4-10.2); Carbon Dioxide 19 mmol/L (22-30); Chloride 104 mmol/L (98-107); Estimated CRCL calculation 116 ml/min; Estimated Glomerular Filt Rate > 60; Glucose 120 mg/dL (65-110); Sodium 131 mmol/L (137-145)
[2021-07-24] MEDS: ASPIRIN 81 MG CHEWABLE TABLET PO (08:52)
[2021-07-24] MEDS: EMPAGLIFLOZIN 12.5 MG TABLET BY MOUTH (08:52)
[2021-07-24] MEDS: oxyCODONE HCL (*CRX) 10 MG TAB SR 12HR PO ×2 (08:52→20:50)
[2021-07-24] MEDS: metFORMIN HCL XR 500 MG TAB.SR.24H 1000 MG PO (08:52)
[2021-07-24 12:02] LABS: Glucose Point of Care 128 mg/dl (65-105)
--- NOTE | 2021-07-24 13:23 | PM.IMPN ---
Progress Note: A&P Assessment and Plan (1) Sepsis: Code(s): A41.9 - Sepsis, unspecified organism Status: Acute Assessment and Plan: Continue fluid hydration Blood cultures have been obtained and are pending. Pt feels unwell spiking fevers flushed tired - 07/24/21: Continue abx. of vancomycin and Imipenem. Preliminary blood cultures are growing G+ cocci in clusters. Will await culture and sensitivity results. No longer meeting SIRS/Sepsis Criteria. (2) Cellulitis of right foot: Code(s): L03.115 - Cellulitis of right lower limb Status: Acute Assessment and Plan: Continue imipenem and vancomycin - 07/24/21: Continue above plan as noted under Sepsis. (3) Muscle cramps: Code(s): R25.2 - Cramp and spasm Status: Acute Assessment and Plan: Continue hydration Xray of shoulder shows OA US of leg is negative for clots - 07/24/21: No DVT. Continue hydration and likely etiology is the patient's current Cellulitic infection. (4) Type 2 diabetes mellitus with hyperglycemia: Code(s): E11.65 - Type 2 diabetes mellitus with hyperglycemia Status: Acute Assessment and Plan: glucose is 209, pt was non compliant with his DM medication, Synjardy for couple of days. Initiate sliding insulin, Accu-Cheks, and hypoglycemic protocol. Follow hemoglobin A1c. - 07/24/21: Fasting glucose this AM was 120. Continue current regimen of Insulin with accu checks and hypoglycemic protocol. (5) Hyponatremia: Code(s): E87.1 - Hypo-osmolality and hyponatremia Status: Acute Assessment and Plan: Sodium improved to 133 Low sodium likely secondary to hyperglycemic effect - 07/24/21: Sodium decreased to 131 today. Will recheck in AM. Consider fluid restriction if further decline. Tolerating fluids and solids well. Urine osmolality and serum osmolality as well as urine sodium ordered. Less suspicious of hyperglycemic affect at this point as the glucose has improved. Most likely related to Sepsis. Continue diabetic diet. (6) Generalized weakness: Code(s): R53.1 - Weakness Status: Acute Assessment and Plan: Secondary to sepsis, infection, and hyponatremia. I will check for GOUT Continue PT/ OT Pt is usually a active independent person - 07/24/21: Continue PT and OT. Pt. has not been able to ambulate outside of his room. He is discouraged by this. He is encouraged to continue to do the best he can and we will re-evaluate his ability prior to discharge. (7) Essential hypertension: Code(s): I10 - Essential (primary) hypertension Status: Chronic Assessment and Plan: BP is NL - 07/24/21: Currently stable at 151/66. Continue current treatment regimen. (8) Tobacco use disorder: Code(s): F17.200 - Nicotine dependence, unspecified, uncomplicated Status: Acute Assessment and Plan: Smoking cessation is encouraged. Declines the need for nicotine patch at this time. - 07/24/21: Declines the desire to smoke at this time. Time Spent With Patient Time with patient: 15 - 25 minutes Subjective Date/time seen: 07/24/21 13:23 This pt. was examined at the bedside in interval assessment after being admitted to the hospital for Bacteremia and Cellulitis of the right foot. He remains on Vancomycin and Imipenem. His preliminary BC show growth of Gram Positive Cocci in clusters. He is afebrile. No other complaints at this time. He has had elevated glucose that has started to gradually come down. His fasting glucose this AM was 120. This is currently well controlled and we will continue the same regimen. Pt. has no other complaints today of CP, Dyspnea, N/V/D or urinary/headache complaints. Review of Systems Review of Systems: All systems reviewed & are unremarkable except as noted in HPI and below Exam Const: General: comfortable and no acute distress HENMT: Mouth: Yes moist mucous membranes Eyes: Sclera:
[2021-07-24 14:00] VITALS: BP 157/69; PULSE 99; RESP 22; TEMP 36.6; O2SAT 93
[2021-07-24 15:43] LABS: Sodium Urine Random 37 meq/L
[2021-07-24 15:48] LABS: Glucose Point of Care 211 mg/dl (65-105)
[2021-07-24] MEDS: INSULIN ASPART (*BKC) 100 UNITS/ML SUB-Q (17:03)
[2021-07-24] MEDS: MORPHINE SULFATE (*CRX) 2 MG/ML INJ IV PUSH ×2 (18:37→23:48)
[2021-07-24 20:00] VITALS: PULSE 99; RESP 22; O2SAT 93
[2021-07-24 21:57] VITALS: BP 124/67; PULSE 80; RESP 18; TEMP 37.1; O2SAT 93
[2021-07-24 21:58] VITALS: O2SAT 93
[2021-07-25] MEDS: SODIUM CHLORIDE 0.9% IV 1,000 ML 200 ML IV CONT ×2 (05:28→15:50)
[2021-07-25 05:31] VITALS: BP 131/63; PULSE 58; RESP 16; TEMP 37.1; O2SAT 94
[2021-07-25 07:23] LABS: Basophils Absolute Auto 0.1 K/mm3 (0.0-0.1); Basophils Percent Auto 0.7 % (0.2-1.2); Eosinophils Absolute Auto 0.1 K/mm3 (0-0.3); Eosinophils Percent Auto 0.6 % (0-4.4); Hematocrit 36.5 % (42.0-52.0); Hemoglobin 12.5 g/dL (14.0-18.0); Immature Granulocyte Absolute 0.61 K/mm3 (0.00-0.031); Immature Granulocyte Percent A 4.5 % (0-0.5); Lymphocytes Absolute Auto 2.42 K/mm3 (0.9-3.2); Mean Corpuscular HGB Conc 34.2 g/dl (32-36); Mean Corpuscular Hemoglobin 33.9 pg (26-34); Mean Corpuscular Volume 98.9 fl (80-100); Mean Platelet Volume 10.5 fl (7.4-10.4); Monocytes Absolute Auto 1.4 K/mm3 (0.1-0.6); Neutrophils Absolute Auto 8.9 K/mm3 (1.3-6.7); Neutrophils Percent Auto 66.2 % (45.5-73.1); Platelet Count Result 150 k/mm3 (150-375); Red Blood Count 3.69 M/mm3 (4.6-6.20); Red Cell Distribution Width 13.5 % (11.5-14.5); White Blood Count 13.4 K/mm3 (4.5-10.0)
[2021-07-25 07:33] LABS: Alanine Aminotransferase 38 U/L (6-50); Albumin Level 2.6 g/dL (3.5-5.1); Alkaline Phosphatase 70 U/L (38-126); Anion Gap 8 mmol/L (8-16); Aspartate Amino Transferase 38 U/L (17-59); Blood Urea Nitrogen 14 mg/dL (9-20); Calcium 7.5 mg/dL (8.4-10.2); Carbon Dioxide 19 mmol/L (22-30); Chloride 107 mmol/L (98-107); Estimated CRCL calculation 137 ml/min; Estimated Glomerular Filt Rate > 60; Glucose 105 mg/dL (65-110); Magnesium 2.1 mg/dL (1.6-2.3); Potassium 3.5 mmol/L (3.4-5.0); Sodium 134 mmol/L (137-145)
[2021-07-25 07:44] LABS: Glucose Point of Care 191 mg/dl (65-105)
[2021-07-25] MEDS: metFORMIN HCL XR 500 MG TAB.SR.24H 1000 MG PO (08:21)
[2021-07-25] MEDS: ENOXAPARIN 40 MG/0.4 ML SYRINGE SUB-Q (08:21)
[2021-07-25] MEDS: oxyCODONE HCL (*CRX) 10 MG TAB SR 12HR PO ×2 (08:22→20:37)
[2021-07-25] MEDS: ASPIRIN 81 MG CHEWABLE TABLET PO (08:22)
[2021-07-25] MEDS: EMPAGLIFLOZIN 12.5 MG TABLET BY MOUTH (08:22)
[2021-07-25 08:46] VITALS: O2SAT 94
--- NOTE | 2021-07-25 10:33 | PM.IMPN ---
Progress Note: A&P Assessment and Plan (1) Septicemia: Code(s): A41.9 - Sepsis, unspecified organism Status: Acute Assessment and Plan: -met SIRS criteria on arrival w/ fever and tachypnea -secondary to cellulitis -BC prelim positive for staph aureus -cont IVF -continue Vanc and Imipenem pending culture sensitivity report -vitals have stabilized (2) Cellulitis of right foot: Code(s): L03.115 - Cellulitis of right lower limb Status: Acute Assessment and Plan: -as above -PT/OT as patient reports difficulty walking secondary to the foot pain (3) Muscle cramps: Code(s): R25.2 - Cramp and spasm Status: Acute Assessment and Plan: -likely secondary to acute illness -Xray of shoulder shows OA -US of RLE negative for DVT -improving w/ hydration and IV abx (4) Type 2 diabetes mellitus with hyperglycemia: Code(s): E11.65 - Type 2 diabetes mellitus with hyperglycemia Status: Acute Assessment and Plan: -Pt was non compliant with his DM medication, Synjardy for couple of days -Initiate sliding insulin, Accu-Cheks, and hypoglycemic protocol -diabetic diet -A1c 6.2 -glucose 105 this AM (5) Hyponatremia: Code(s): E87.1 - Hypo-osmolality and hyponatremia Status: Acute Assessment and Plan: -likely due to acute illness -improving -continue NS (6) Generalized weakness: Code(s): R53.1 - Weakness Status: Acute Assessment and Plan: -likely due to above -continue PT/OT (7) Essential hypertension: Code(s): I10 - Essential (primary) hypertension Status: Chronic Assessment and Plan: -stable -continue home meds (8) Tobacco use disorder: Code(s): F17.200 - Nicotine dependence, unspecified, uncomplicated Status: Acute Assessment and Plan: -Smoking cessation is encouraged. -Declines the need for nicotine patch at this time. Subjective Date/time seen: 07/25/21 10:33 Interval history: 65-year-old male smoker with coronary artery disease, hypertension, dyslipidemia, and diabetes who presented to the emergency department with complaints of pain all over and was subsequently admitted with R foot cellulitis and sepsis. Pt states his pain is overall improving. Was up ambulating with therapy which he had some difficulty with. No fevers, chills, N/V/abd pain/cp/sob. Review of Systems Review of Systems: All systems reviewed & are unremarkable except as noted in HPI and below Exam Narrative: General: NAD, non toxic. Alert. Sitting in chair at bedside after working with therapy. HEENT: PERRL. Sclerae anicteric. Moist mucous membranes. Neck: Supple. Respiratory: Lungs are clear to auscultation bilaterally. Cardiovascular: Regular rate and rhythm with S1-S2. Gastrointestinal: Abdomen is soft, nontender, and nondistended with positive bowel sounds. Skin: Warm and dry. Face is red from recent sun exposure. Extremities: 1+ edema to R foot, mild erythema and warmth, decreased ROM secondary to pain Neurological: Alert. Cranial nerves 2-12 are grossly intact. Speech is clear. No facial asymmetry. No gross focal deficits to casual conversation. Psychiatric: Pleasant and cooperative with normal mood and affect. Judgment and insight intact. Objective Data Vital Signs Vital Signs: Vital Signs - 24 hr 07/24/21 14:00 07/24/21 20:00 07/24/21 21:57 Temperature 97.8 F 98.8 F Pulse Rate 99 99 80 Respiratory Rate 22 H 22 H 18 Blood Pressure 157/69 H 124/67 Pulse Oximetry 93 93 93 07/24/21 21:58 07/25/21 05:31 07/25/21 08:46 Temperature 98.7 F Pulse Rate 58 L Respiratory Rate 16 Blood Pressure 131/63 Pulse Oximetry 93 94 94 Intake/Output Intake/Output: Intake & Output 07/22/21 07/23/21 07/24/21 07/25/21 23:59 23:59 23:59 23:59 Intake Total 4640 6210 5866 1620 Output Total 600
[2021-07-25 11:10] LABS: Glucose Point of Care 135 mg/dl (65-105)
--- NOTE | 2021-07-25 13:03 | P.CDI_ITS ---
CDI Query Clarification Request ER physician documented: Clinical Impression: Cellulitis of leg, right, Acute hyponatremia Sciatica Qualifiers: Laterality: right Qualified Code(s): M54.31 - Sciatica, right side Uncontrolled diabetes mellitus Qualifiers: Diabetes mellitus type: type 2 Glycemic state: with hyperglycemia Qualified Co de(s): E11.65 - Type 2 diabetes mellitus with hyperglycemia 07/24 Hospitalist documented: Muscle cramps: Code(s): R25.2 - Cramp and spasm Status: Acute Assessment and Plan: Continue hydration Xray of shoulder shows OA US of leg is negative for clots - 07/24/21: No DVT. Continue hydration and likely etiology is the patient's current Cellulitic infection. Please clarify if diagnosis, Sciatica has been ruled in, ruled out or unable to determine
[2021-07-25 13:57] VITALS: BP 149/78; PULSE 80; RESP 18; TEMP 37; O2SAT 93
[2021-07-25 16:25] LABS: Glucose Point of Care 211 mg/dl (65-105)
[2021-07-25] MEDS: INSULIN ASPART (*BKC) 100 UNITS/ML SUB-Q (16:27)
[2021-07-25 20:05] LABS: Glucose Point of Care 174 mg/dl (65-105)
[2021-07-25 20:37] VITALS: TEMP 37.9
[2021-07-25] MEDS: ACETAMINOPHEN 325 MG TABLET 650 MG PO (20:37)
[2021-07-25] MEDS: SODIUM CHLORIDE 0.9% IV 1,000 ML 100 ML IV CONT (20:40)
[2021-07-25 21:40] VITALS: TEMP 37.1
[2021-07-25 21:41] VITALS: BP 141/98; PULSE 74; RESP 18; TEMP 37.5; O2SAT 96
[2021-07-26 06:00] VITALS: BP 148/74; PULSE 68; RESP 16; TEMP 37.3; O2SAT 94
[2021-07-26 06:16] LABS: Basophils Absolute Auto 0.1 K/mm3 (0.0-0.1); Basophils Percent Auto 0.6 % (0.2-1.2); Eosinophils Absolute Auto 0.1 K/mm3 (0-0.3); Eosinophils Percent Auto 1.1 % (0-4.4); Hematocrit 35.4 % (42.0-52.0); Hemoglobin 12.4 g/dL (14.0-18.0); Immature Granulocyte Absolute 0.89 K/mm3 (0.00-0.031); Immature Granulocyte Percent A 7.1 % (0-0.5); Lymphocytes Absolute Auto 2.26 K/mm3 (0.9-3.2); Lymphocytes Percent Auto 18.1 % (18.3-44.2); Mean Corpuscular Hemoglobin 33.6 pg (26-34); Mean Corpuscular Volume 95.9 fl (80-100); Mean Platelet Volume 10.6 fl (7.4-10.4); Monocytes Absolute Auto 1.3 K/mm3 (0.1-0.6); Monocytes Percent Auto 10.6 % (2.6-8.5); Neutrophils Absolute Auto 7.8 K/mm3 (1.3-6.7); Neutrophils Percent Auto 62.5 % (45.5-73.1); Platelet Count Result 202 k/mm3 (150-375); Red Blood Count 3.69 M/mm3 (4.6-6.20); Red Cell Distribution Width 13.3 % (11.5-14.5); White Blood Count 12.5 K/mm3 (4.5-10.0)
[2021-07-26 06:37] LABS: Alanine Aminotransferase 47 U/L (6-50); Albumin Level 2.6 g/dL (3.5-5.1); Alkaline Phosphatase 69 U/L (38-126); Anion Gap 6 mmol/L (8-16); Aspartate Amino Transferase 41 U/L (17-59); Bilirubin,Total 0.9 mg/dL (0.2-1.3); Blood Urea Nitrogen 13 mg/dL (9-20); Calcium 7.3 mg/dL (8.4-10.2); Carbon Dioxide 22 mmol/L (22-30); Chloride 105 mmol/L (98-107); Estimated CRCL calculation 137 ml/min; Estimated Glomerular Filt Rate > 60; Glucose 123 mg/dL (65-110); Potassium 3.5 mmol/L (3.4-5.0); Sodium 133 mmol/L (137-145)
[2021-07-26 07:54] LABS: Glucose Point of Care 128 mg/dl (65-105)
[2021-07-26 08:00] VITALS: PULSE 75; RESP 18; O2SAT 93
[2021-07-26] MEDS: EMPAGLIFLOZIN 12.5 MG TABLET BY MOUTH (09:04)
[2021-07-26] MEDS: metFORMIN HCL XR 500 MG TAB.SR.24H 1000 MG PO (09:04)
[2021-07-26] MEDS: ASPIRIN 81 MG CHEWABLE TABLET PO (09:04)
[2021-07-26] MEDS: ENOXAPARIN 40 MG/0.4 ML SYRINGE SUB-Q (09:04)
[2021-07-26] MEDS: oxyCODONE HCL (*CRX) 10 MG TAB SR 12HR PO ×2 (09:08→21:04)
[2021-07-26] MEDS: SODIUM CHLORIDE 0.9% IV 1,000 ML 100 ML IV CONT ×2 (11:00→21:07)
[2021-07-26 11:42] LABS: Glucose Point of Care 153 mg/dl (65-105)
--- NOTE | 2021-07-26 13:09 | PM.IMPN ---
Progress Note: A&P Assessment and Plan (1) Septicemia: Code(s): A41.9 - Sepsis, unspecified organism Status: Acute Assessment and Plan: -met SIRS criteria on arrival w/ fever and tachypnea -secondary to cellulitis - 07/22/2021 Blood cultures positive for MSSA in 2 of 2 bottles. -On Vancomycin & Primaxin started 07/22/2021; Vancomycin trough 7 and subtherapeutic. Pharmacy to dose. -07/26/21 Tmax 100.3F 07/25/21 overnight. Repeat blood cultures x2. Check transthoracic echocardiogram for endocarditis. -X-ray R foot & ankle negative for osseous involvement. Will change to Rocephin 2 grams IV Q24 hours x 14 days from negative cultures. Trend CBC. (2) Cellulitis of right foot: Code(s): L03.115 - Cellulitis of right lower limb Status: Acute Assessment and Plan: -as above -PT/OT consulted. -Continue pain control as above. (3) Muscle cramps: Code(s): R25.2 - Cramp and spasm Status: Acute Assessment and Plan: -Stable. -Xray of shoulder shows OA -US of RLE negative for DVT (4) Type 2 diabetes mellitus with hyperglycemia: Code(s): E11.65 - Type 2 diabetes mellitus with hyperglycemia Status: Acute Assessment and Plan: -Pt was non compliant with his DM medication, Synjardy for couple of days -Continue sliding insulin, Accu-Cheks, and hypoglycemic protocol -Metformin XR 1000 mg daily & empagliflozen 12.5 mg daily continued -diabetic diet -Recent A1c 6.2; fasting glucose 153 today. (5) Hyponatremia: Code(s): E87.1 - Hypo-osmolality and hyponatremia Status: Acute Assessment and Plan: -Hypovolemia hyponatremia versus SIADH -07/26/21 Sodium level 133. Not hyperglycemic or taking loop/thiazide diuretics. -Urine osmo pending. Urine sodium <40. -continue NS@100 mL/hour. -Neuro status stable. (6) Generalized weakness: Code(s): R53.1 - Weakness Status: Acute Assessment and Plan: -likely due to acute infection & pain. -continue PT/OT (7) Essential hypertension: Code(s): I10 - Essential (primary) hypertension Status: Chronic Assessment and Plan: -stable -continue home meds (8) Tobacco use disorder: Code(s): F17.200 - Nicotine dependence, unspecified, uncomplicated Status: Acute Assessment and Plan: -Smoking cessation is encouraged. -Declines the need for nicotine patch at this time. Time Spent With Patient Time: 15-25 minutes Subjective Date/time seen: 07/26/21 13:09 Interval history: 65-year-old male smoker with coronary artery disease, hypertension, dyslipidemia, and diabetes who presented to the emergency department with complaints of pain all over and was admitted with R foot cellulitis and sepsis. Patient was found sitting up in the chair with at bedside. He reports difficulty sleeping last night secondary to pain. He thinks the oxycontin keeps his pain tolerable, but he has difficulty if he waits too long. He reports continued RLE edema, but improvement in erythema. He walked better with PT/OT today and hopes to go home upon discharge. No fevers, chills, N/V/abd pain/cp/sob. Review of Systems Review of Systems: All systems reviewed & are unremarkable except as noted in HPI and below (subjective) Exam Narrative: General: NAD, non toxic. Alert. Sitting up in chair. HEENT: Normocephalic. Atraumatic. PERRL. Sclerae anicteric. Moist mucous membranes. Neck: Supple. No JVD. Respiratory: Lungs are clear to auscultation bilaterally. Cardiovascular: Regular rate and rhythm with S1-S2. No gallops or rubs. Murmur not appreciated. Gastrointestinal: Abdomen is soft, nontender, and nondistended with positive bowel sounds. Skin: Warm and dry. Face is red from recent sun exposure. Extremities: 2+ edema to R foot, no erythema and normothermic, decreased ROM secondary to pain Neurological: Alert.
[2021-07-26] MEDS: IBUPROFEN 600 MG TABLET PO (14:37)
[2021-07-26 14:38] VITALS: BP 134/65; PULSE 75; RESP 18; TEMP 38.2; O2SAT 93
[2021-07-26 17:14] LABS: Glucose Point of Care 114 mg/dl (65-105)
[2021-07-26] MEDS: cefTRIAXone 2 GM in SODIUM CHLORIDE 0.9% IV 100 ML 200 ML IVPB (18:07)
[2021-07-26 20:56] LABS: Glucose Point of Care 151 mg/dl (65-105)
[2021-07-26 21:42] VITALS: BP 123/61; PULSE 62; RESP 20; TEMP 36.6; O2SAT 91; O2SAT 92
--- NOTE | 2021-07-27 | ECHO_ITS ---
Patient Info Name: Jared Mullins Age: 65 years : 1955 Gender: Male Ht: 72 in Wt: 203 lbs BSA: 2.18 m2 HR: 77 bpm BP: 148 / 74 mmHg Heart Rhythm: Sinus Rhythm Technical Quality: Fair Exam Date: 07/27/2021 9:01 AM Exam Location: [facility] Card Pulmonary Patient Status: Inpatient Admit Date: 07/23/2021 Staff Ordering Physician: Ruma Peñaloza APRN Wood Panel Inspector: Eleanor Curry RDCS Attending Provider: Emy Yu PA-C Referring Physician: Jh JACOBSEN; Exam Type: CA echo doppler color flow Study Info Indications - MSSA bacteremia Complete two-dimensional, color flow and Doppler transthoracic echocardiogram is performed. Summary 1. Complete two-dimensional, color flow and Doppler transthoracic echocardiogram is performed. 2. Left ventricular chamber dimension is normal. 3. Left ventricular systolic function is normal, estimated at 60-65%. 4. The left ventricular diastolic function is normal. 5. E/e' 8 is minimally elevated. 6. There is mild aortic valve sclerosis. 7. There is trace tricuspid valve regurgitation. 8. No pulmonary hypertension, estimated pulmonary arterial systolic pressure is 21 mmHg. 9. There is trace pulmonic regurgitation. 10. There is trivial pericardial effusion. Left Ventricle E/e' 8 is minimally elevated. Left ventricular chamber dimension is normal. Left ventricular systolic function is normal, estimated at 60-65%. The left ventricular diastolic function is normal. Right Ventricle Right ventricular chamber dimension is normal. Right ventricular systolic function is normal. Left Atria Left atrial chamber dimension is normal. Right Atria Right atrial chamber dimension is normal. Aortic Valve The aortic valve is trileaflet. There is mild aortic valve sclerosis. There is no aortic valve stenosis. There is no aortic valve regurgitation. No aortic valve vegetation visualized. Pulmonic Valve There is trace pulmonic regurgitation. Mitral Valve There is no mitral valve stenosis. There is no mitral valve regurgitation. No mitral valve vegetation visualized. Tricuspid Valve There is trace tricuspid valve regurgitation. No pulmonary hypertension, estimated pulmonary arterial systolic pressure is 21 mmHg. No tricuspid valve vegetation visualized. Pericardium/Pleural There is trivial pericardial effusion. Inferior Vena Cava Normal inferior vena cava with >50% collapse upon inspiration consistent with normal right atrial pressure, 5 mmHg. Aorta The aortic root size at the sinus of Valsalva is normal. Left Ventricular Outflow Tract Name Value Normal LVOT 2D LVOT Diameter 2.1 cm LVOT Doppler LVOT Peak Gradient 5 mmHg LVOT Mean Gradient 2 mmHg LVOT VTI 20 cm LVOT VTI/AV VTI Ratio 0.9 LVOT Stroke Volume 70 ml LVOT CO 5.5 l/min LVOT CI 2.5 l/min/m2 Pulmonic Valve
[2021-07-27] MEDS: IBUPROFEN 600 MG TABLET PO (00:14)
[2021-07-27] MEDS: DICLOFENAC SODIUM 1% 100 GM GEL (*BKC) 1 APPLIC TOPICAL (00:16)
[2021-07-27 05:40] VITALS: BP 133/71; PULSE 66; RESP 18; TEMP 37.1; O2SAT 98
[2021-07-27 06:12] LABS: Hematocrit 37.1 % (42.0-52.0); Hemoglobin 12.6 g/dL (14.0-18.0); Mean Corpuscular Hemoglobin 33.7 pg (26-34); Mean Corpuscular Volume 99.2 fl (80-100); Mean Platelet Volume 10.3 fl (7.4-10.4); Platelet Count Result 264 k/mm3 (150-375); Red Blood Count 3.74 M/mm3 (4.6-6.20); Red Cell Distribution Width 13.8 % (11.5-14.5); White Blood Count 13.9 K/mm3 (4.5-10.0)
[2021-07-27 06:20] LABS: Anion Gap 9 mmol/L (8-16); Blood Urea Nitrogen 12 mg/dL (9-20); Calcium 7.5 mg/dL (8.4-10.2); Carbon Dioxide 19 mmol/L (22-30); Chloride 111 mmol/L (98-107); Estimated CRCL calculation 137 ml/min; Estimated Glomerular Filt Rate > 60; Glucose 100 mg/dL (65-110); Potassium 3.4 mmol/L (3.4-5.0); Sodium 139 mmol/L (137-145)
[2021-07-27 07:34] LABS: Osmolality, Urine 724 mOsm/kg (50-1200)
[2021-07-27 08:00] VITALS: PULSE 66; RESP 18; O2SAT 98
[2021-07-27] MEDS: SODIUM CHLORIDE 0.9% IV 1,000 ML 100 ML IV CONT ×2 (08:15→17:57)
--- NOTE | 2021-07-27 08:32 | PM.IMPN ---
Progress Note: A&P Assessment and Plan (1) Septicemia: Code(s): A41.9 - Sepsis, unspecified organism Status: Acute Assessment and Plan: -met SIRS criteria on arrival w/ fever and tachypnea -secondary to cellulitis - 07/22/2021 Blood cultures positive for MSSA in 2 of 2 bottles. -On Vancomycin & Primaxin started 07/22/2021; Vancomycin trough 7 and subtherapeutic. Pharmacy to dose. -07/26/21 Tmax 100.3F 07/25/21 overnight. Repeat blood cultures x2. Check transthoracic echocardiogram for endocarditis. X-ray R foot & ankle negative for osseous involvement. Will change to Rocephin 2 grams IV Q24 hours x 14 days from negative cultures. Trend CBC. -07/27/21 TTE without evidence of vegetation/endocarditis. 07/26 repeat blood cultures pending. Will plan to insert midline catheter versus PICC for 14-day IV antibiotic tomorrow if blood cultures remain negative. (2) Cellulitis of right foot: Code(s): L03.115 - Cellulitis of right lower limb Status: Acute Assessment and Plan: -as above. Appears improving. -PT/OT consulted. -Continue pain control as above. (3) Muscle cramps: Code(s): R25.2 - Cramp and spasm Status: Acute Assessment and Plan: -Stable. -Xray of shoulder shows OA -US of RLE negative for DVT (4) Type 2 diabetes mellitus with hyperglycemia: Code(s): E11.65 - Type 2 diabetes mellitus with hyperglycemia Status: Acute Assessment and Plan: -Pt was non compliant with his DM medication, Synjardy for couple of days -Continue sliding insulin, Accu-Cheks, and hypoglycemic protocol -Metformin XR 1000 mg daily & empagliflozen 12.5 mg daily continued -diabetic diet -Recent A1c 6.2; (5) Hyponatremia: Code(s): E87.1 - Hypo-osmolality and hyponatremia Status: Acute Assessment and Plan: -Hypovolemia hyponatremia versus SIADH -07/26/21 Sodium level 133. Not hyperglycemic or taking loop/thiazide diuretics. -Urine osmo pending. Urine sodium <40. -07/27 Sodium 139 and improved with IV fluids. Saline lock fluids. Monitor neuro status. (6) Generalized weakness: Code(s): R53.1 - Weakness Status: Acute Assessment and Plan: -likely due to acute infection & pain. -continue PT/OT -Improving. (7) Essential hypertension: Code(s): I10 - Essential (primary) hypertension Status: Chronic Assessment and Plan: -stable -continue home meds (8) Tobacco use disorder: Code(s): F17.200 - Nicotine dependence, unspecified, uncomplicated Status: Acute Assessment and Plan: -Smoking cessation discussed with the patient and strongly encouraged. -Declines the need for nicotine patch at this time. Time Spent With Patient Time with patient: 15 - 25 minutes Subjective Date/time seen: 07/27/21 08:32 Interval history: 65-year-old male smoker with coronary artery disease, hypertension, dyslipidemia, and diabetes who presented to the emergency department with complaints of pain all over and was admitted with R foot cellulitis and sepsis. Patient was found sitting up in the chair with at bedside. He still reports difficulty sleeping last night secondary to pain. He thinks he is a light sleeper and is close to the nurses station. His RLE swelling is improving and he is doing better working with PT/OT. Tmax 100.7F yesterday evening. No chills, N/V/abd pain/cp/sob. Review of Systems Review of Systems: All systems reviewed & are unremarkable except as noted in HPI and below Exam Narrative: General: NAD, non toxic. Alert. Sitting up in chair. HEENT: Normocephalic. Atraumatic. PERRL. Sclerae anicteric. Moist mucous membranes. Neck: Supple. No JVD. Respiratory: Lungs are clear to auscultation bilaterally. Cardiovascular: Regular rate and rhythm with S1-S2. No gallops or rubs. Murmur not appreciated. Gastrointestinal: Abdomen is sof
[2021-07-27] MEDS: metFORMIN HCL XR 500 MG TAB.SR.24H 1000 MG PO (09:56)
[2021-07-27] MEDS: EMPAGLIFLOZIN 12.5 MG TABLET BY MOUTH (09:56)
[2021-07-27] MEDS: ASPIRIN 81 MG CHEWABLE TABLET PO (09:56)
[2021-07-27] MEDS: ENOXAPARIN 40 MG/0.4 ML SYRINGE SUB-Q (09:57)
[2021-07-27] MEDS: oxyCODONE HCL (*CRX) 10 MG TAB SR 12HR PO (09:58)
[2021-07-27 11:32] LABS: Glucose Point of Care 114 mg/dl (65-105)
[2021-07-27 12:02] LABS: Glucose Point of Care 127 mg/dl (65-105)
[2021-07-27 14:00] VITALS: BP 136/70; PULSE 73; RESP 18; TEMP 36.4; O2SAT 95
[2021-07-27 17:09] LABS: Glucose Point of Care 148 mg/dl (65-105)
[2021-07-27] MEDS: POTASSIUM CHLORIDE 20 MEQ TABLET 40 MEQ PO (17:47)
[2021-07-27] MEDS: FUROSEMIDE INJ 40 MG/4 ML VIAL IV PUSH (17:47)
[2021-07-27] MEDS: cefTRIAXone 2 GM in SODIUM CHLORIDE 0.9% IV 100 ML 200 ML IVPB (17:47)
[2021-07-27 20:00] VITALS: PULSE 71; RESP 18; O2SAT 96
[2021-07-27 21:13] VITALS: O2SAT 94
[2021-07-27 21:32] VITALS: BP 151/64; PULSE 71; RESP 18; TEMP 36.7; O2SAT 96
[2021-07-27] MEDS: diphenhydrAMINE HCl CAP 25 MG CAPSULE PO (23:20)
[2021-07-28] MEDS: SODIUM CHLORIDE 0.9% IV 1,000 ML 100 ML IV CONT (04:46)
[2021-07-28 05:24] VITALS: BP 142/78; PULSE 65; RESP 17; TEMP 36.6; O2SAT 95
[2021-07-28 07:42] LABS: Hematocrit 36.7 % (42.0-52.0); Hemoglobin 12.7 g/dL (14.0-18.0); Mean Corpuscular HGB Conc 34.6 g/dl (32-36); Mean Corpuscular Hemoglobin 33.5 pg (26-34); Mean Corpuscular Volume 96.8 fl (80-100); Mean Platelet Volume 9.9 fl (7.4-10.4); Platelet Count Result 319 k/mm3 (150-375); Red Blood Count 3.79 M/mm3 (4.6-6.20); Red Cell Distribution Width 13.8 % (11.5-14.5); White Blood Count 14.2 K/mm3 (4.5-10.0)
[2021-07-28 07:51] LABS: Anion Gap 10 mmol/L (8-16); Blood Urea Nitrogen 11 mg/dL (9-20); Calcium 7.8 mg/dL (8.4-10.2); Carbon Dioxide 18 mmol/L (22-30); Chloride 110 mmol/L (98-107); Estimated CRCL calculation 137 ml/min; Estimated Glomerular Filt Rate > 60; Glucose 97 mg/dL (65-110); Potassium 3.7 mmol/L (3.4-5.0); Sodium 138 mmol/L (137-145)
[2021-07-28 08:00] VITALS: PULSE 65; RESP 17; O2SAT 95
[2021-07-28] MEDS: metFORMIN HCL XR 500 MG TAB.SR.24H 1000 MG PO (08:15)
[2021-07-28] MEDS: ENOXAPARIN 40 MG/0.4 ML SYRINGE SUB-Q (08:15)
[2021-07-28] MEDS: ASPIRIN 81 MG CHEWABLE TABLET PO (08:16)
[2021-07-28] MEDS: EMPAGLIFLOZIN 12.5 MG TABLET BY MOUTH (08:16)
[2021-07-28] MEDS: oxyCODONE HCL (*CRX) 10 MG TAB SR 12HR PO (08:17)
[2021-07-28 08:20] LABS: Glucose Point of Care 112 mg/dl (65-105)
--- NOTE | 2021-07-28 09:25 | PC.NURSE ---
called lab to add cbc with diff per physician communication order
[2021-07-28 10:26] LABS: Hematocrit 37.4 % (42.0-52.0); Hemoglobin 12.8 g/dL (14.0-18.0); Mean Corpuscular HGB Conc 34.2 g/dl (32-36); Mean Corpuscular Hemoglobin 33.9 pg (26-34); Mean Corpuscular Volume 98.9 fl (80-100); Mean Platelet Volume 10.3 fl (7.4-10.4); Platelet Count Result 328 k/mm3 (150-375); Red Blood Count 3.78 M/mm3 (4.6-6.20); White Blood Count 14.5 K/mm3 (4.5-10.0)
--- NOTE | 2021-07-28 10:27 | PC.NURSE ---
ua send to lab for analysis
[2021-07-28 10:38] LABS: Appearance Urine Clear (Clear); Bilirubin Urine 1+ (Negative); Color Urine Yellow (Yellow); Glucose Urine UA 2+ mg/dL (Negative); Ketones Urine 4+ mg/dL (Negative); Leukocyte Esterase Ur Negative LEU/UL (Negative); Nitrate Urine Negative (Negative); Protein Urine Negative (Negative); Specific Grav Ur 1.025 (1.001-1.035); Urobilinogen Urine 0.2 mg/dL (<2.0)
[2021-07-28 10:41] LABS: Atypical Lymphocytes Present; Band Neutrophils Percent 1 % (0-6); Lymphocytes Absolute Manual 2.46 K/mm3 (1.1-4.5); Metamyelocytes Percent 2 %; Monocytes Absolute Manual 0.87 K/mm3 (0.1-0.90); Monocytes Percent Manual 6 % (3-9); Neutrophils Absolute Manual 10.87 K/mm3 (1.3-6.7); Neutrophils Percent Manual 74 % (46-73); Platelet Estimate Adequate (Adequate); Total Cells Counted 100
[2021-07-28 10:44] LABS: Mucus Urine Rare /lpf; RBC Urine 0-2 /hpf (0-2); WBC Urine 0-3 /hpf
[2021-07-28 11:05] LABS: Add Urine Microscopic? YES; Blood Urine Trace-Intact (Negative)
[2021-07-28] MEDS: ACETAMINOPHEN 325 MG TABLET 650 MG PO (12:11)
[2021-07-28 12:16] LABS: Glucose Point of Care 133 mg/dl (65-105)
[2021-07-28 14:00] VITALS: BP 128/67; PULSE 62; RESP 18; TEMP 36.5; O2SAT 97
[2021-07-28 14:36] VITALS: O2SAT 94
--- NOTE | 2021-07-28 15:44 | PM.IMPN ---
Progress Note: A&P Assessment and Plan (1) Septicemia: Code(s): A41.9 - Sepsis, unspecified organism Status: Acute Assessment and Plan: -met SIRS criteria on arrival w/ fever and tachypnea -secondary to cellulitis - 07/22/2021 Blood cultures positive for MSSA in 2 of 2 bottles. -On Vancomycin & Primaxin started 07/22/2021; Vancomycin trough 7 and subtherapeutic. Pharmacy to dose. -07/26/21 Tmax 100.3F 07/25/21 overnight. Repeat blood cultures x2. Check transthoracic echocardiogram for endocarditis. X-ray R foot & ankle negative for osseous involvement. Will change to Rocephin 2 grams IV Q24 hours x 14 days from negative cultures. Trend CBC. -07/27/21 TTE without evidence of vegetation/endocarditis. 07/26 repeat blood cultures pending. Will plan to insert midline catheter versus PICC for 14-day IV antibiotic tomorrow if blood cultures remain negative. -07/28 Repeat Blood cultures pending but preliminary report shows no growth. WBC 14, however he has been afebrile for >48 hours suggesting infection control. UA negative. CXR no infection. TTE no vegetation. Cellulitis RLE appears improving. Repeat CBC tomorrow. If improved WBC and cultures still negative. Insert midline/PICC for IV Rocephin 2 grams Q24 hours x14 days total (today is day 3 of antibiotics). (2) Cellulitis of right foot: Code(s): L03.115 - Cellulitis of right lower limb Status: Acute Assessment and Plan: -as above. Appears improving. -PT/OT consulted. -Continue pain control as above. -Continue arden wraps and leg elevation for edema control. 07/28 Lasix 40 mg IV x1. (3) Muscle cramps: Code(s): R25.2 - Cramp and spasm Status: Acute Assessment and Plan: -Stable. -Xray of shoulder shows OA -US of RLE negative for DVT (4) Type 2 diabetes mellitus with hyperglycemia: Code(s): E11.65 - Type 2 diabetes mellitus with hyperglycemia Status: Acute Assessment and Plan: -Pt was non compliant with his DM medication, Synjardy for couple of days -Continue sliding insulin, Accu-Cheks, and hypoglycemic protocol -Metformin XR 1000 mg daily & empagliflozen 12.5 mg daily continued -diabetic diet -Recent A1c 6.2; (5) Hyponatremia: Code(s): E87.1 - Hypo-osmolality and hyponatremia Status: Acute Assessment and Plan: -Hypovolemia hyponatremia versus SIADH -07/26/21 Sodium level 133. Not hyperglycemic or taking loop/thiazide diuretics. -Urine osmo pending. Urine sodium <40. -07/27 Sodium 139 and improved with IV fluids. Saline lock fluids. Monitor neuro status. -07/28 IV fluids stopped. (6) Generalized weakness: Code(s): R53.1 - Weakness Status: Acute Assessment and Plan: -likely due to acute infection & pain. -continue PT/OT -Improving. (7) Essential hypertension: Code(s): I10 - Essential (primary) hypertension Status: Chronic Assessment and Plan: -stable -continue home meds (8) Tobacco use disorder: Code(s): F17.200 - Nicotine dependence, unspecified, uncomplicated Status: Acute Assessment and Plan: -Smoking cessation discussed with the patient and strongly encouraged. -Declines the need for nicotine patch at this time. Time Spent With Patient Time with patient: 15 - 25 minutes Subjective Date/time seen: 07/28/21 15:44 Interval history: 65-year-old male smoker with coronary artery disease, hypertension, dyslipidemia, and diabetes who presented to the emergency department with complaints of pain all over and was admitted with R foot cellulitis and sepsis. Patient sitting up in the chair in no acute distress. He still has trouble sleeping, but it was a little better last night after benadryl. Afebrile x 48 hours. No chills, N/V/abd pain/cp/sob, dysuria or diarrhea. He reports his right leg swelling and redness is improved. Review of Systems Review of Syste
--- NOTE | 2021-07-28 16:25 | PC.NURSE ---
pt refused IV lasix 40 mg IV push and potassium 40meq at this time, provider Ruma informed, rescheduled for 600 07/29/21.
[2021-07-28 16:50] LABS: Glucose Point of Care 114 mg/dl (65-105)
[2021-07-28] MEDS: cefTRIAXone 2 GM in SODIUM CHLORIDE 0.9% IV 100 ML 200 ML IVPB (16:57)
--- NOTE | 2021-07-28 17:58 | PC.NURSE ---
Per provider Ruma Peñaloza, awaiting bc final results to place picc line. No Picc line placed this shift, awaiting final BC results still, possible discharge tomorrow with home health if picc line placed, pt to continued Rocephin 2 g x11 days with home health.
[2021-07-28 20:31] LABS: Glucose Point of Care 159 mg/dl (65-105)
[2021-07-28] MEDS: diphenhydrAMINE HCl CAP 25 MG CAPSULE PO (20:58)
[2021-07-28 21:33] VITALS: BP 136/70; PULSE 62; RESP 18; TEMP 37.2; O2SAT 95
[2021-07-29] MEDS: POTASSIUM CHLORIDE 20 MEQ TABLET 40 MEQ PO (05:35)
[2021-07-29] MEDS: FUROSEMIDE INJ 40 MG/4 ML VIAL IV PUSH (05:36)
[2021-07-29 05:58] VITALS: BP 140/67; PULSE 70; RESP 18; TEMP 37.4; O2SAT 95
[2021-07-29 07:29] LABS: Basophils Absolute Auto 0.1 K/mm3 (0.0-0.1); Basophils Percent Auto 0.9 % (0.2-1.2); Eosinophils Absolute Auto 0.1 K/mm3 (0-0.3); Eosinophils Percent Auto 0.7 % (0-4.4); Hematocrit 38.6 % (42.0-52.0); Hemoglobin 13.3 g/dL (14.0-18.0); Immature Granulocyte Absolute 0.64 K/mm3 (0.00-0.031); Immature Granulocyte Percent A 4.8 % (0-0.5); Lymphocytes Absolute Auto 2.01 K/mm3 (0.9-3.2); Lymphocytes Percent Auto 15.1 % (18.3-44.2); Mean Corpuscular HGB Conc 34.5 g/dl (32-36); Mean Corpuscular Hemoglobin 33.7 pg (26-34); Mean Corpuscular Volume 97.7 fl (80-100); Monocytes Absolute Auto 1.1 K/mm3 (0.1-0.6); Monocytes Percent Auto 7.9 % (2.6-8.5); Neutrophils Absolute Auto 9.4 K/mm3 (1.3-6.7); Neutrophils Percent Auto 70.6 % (45.5-73.1); Platelet Count Result 383 k/mm3 (150-375); Red Blood Count 3.95 M/mm3 (4.6-6.20); Red Cell Distribution Width 13.5 % (11.5-14.5); White Blood Count 13.3 K/mm3 (4.5-10.0)
[2021-07-29 07:40] LABS: Glucose Point of Care 112 mg/dl (65-105)
[2021-07-29 07:40] LABS: Anion Gap 7 mmol/L (8-16); Blood Urea Nitrogen 13 mg/dL (9-20); Calcium 7.9 mg/dL (8.4-10.2); Carbon Dioxide 28 mmol/L (22-30); Chloride 102 mmol/L (98-107); Estimated CRCL calculation 116 ml/min; Estimated Glomerular Filt Rate > 60; Glucose 101 mg/dL (65-110); Sodium 137 mmol/L (137-145)
[2021-07-29 08:00] VITALS: PULSE 70; RESP 18; O2SAT 95
[2021-07-29] MEDS: ACETAMINOPHEN 325 MG TABLET 650 MG PO (09:06)
[2021-07-29] MEDS: ENOXAPARIN 40 MG/0.4 ML SYRINGE SUB-Q (09:07)
[2021-07-29] MEDS: metFORMIN HCL XR 500 MG TAB.SR.24H 1000 MG PO (09:07)
[2021-07-29] MEDS: ASPIRIN 81 MG CHEWABLE TABLET PO (09:07)
[2021-07-29] MEDS: EMPAGLIFLOZIN 12.5 MG TABLET BY MOUTH (09:07)
--- NOTE | 2021-07-29 10:18 | PCNWS ---
Weekly nutritional screen. Patient screened in for length of stay. Patient is tolerating current diet with adequate intake. No weight loss reported. No nutritional needs at this time. Will follow up in 7 days if pt has not d/c.
--- NOTE | 2021-07-29 11:06 | PM.DS ---
DS: Admitting Diagnosis Discharge Date 07/29/21 1600 Admitting Diagnosis Sepsis DS: Discharge Diagnosis Discharge Diagnosis (1) Septicemia: Code(s): A41.9 - Sepsis, unspecified organism Status: Acute Assessment and Plan: -met SIRS criteria on arrival w/ fever and tachypnea -secondary to cellulitis - 07/22/2021 Blood cultures positive for MSSA in 2 of 2 bottles. -On Vancomycin & Primaxin started 07/22/2021; Vancomycin trough 7 and subtherapeutic. Pharmacy to dose. -07/26/21 Tmax 100.3F 07/25/21 overnight. Repeat blood cultures x2. Check transthoracic echocardiogram for endocarditis. X-ray R foot & ankle negative for osseous involvement. Will change to Rocephin 2 grams IV Q24 hours x 14 days from negative cultures. Trend CBC. -07/27/21 TTE without evidence of vegetation/endocarditis. 07/26 repeat blood cultures pending. Will plan to insert midline catheter versus PICC for 14-day IV antibiotic tomorrow if blood cultures remain negative. -07/28 Repeat Blood cultures pending but preliminary report shows no growth. WBC 14, however he has been afebrile for >48 hours suggesting infection control. UA negative. CXR no infection. TTE no vegetation. Cellulitis RLE appears improving. Repeat CBC tomorrow. If improved WBC and cultures still negative. Insert midline/PICC for IV Rocephin 2 grams Q24 hours x14 days total (today is day 3 of antibiotics). -07/29 Blood cultures show no growth to date. WBC downtrending, pt continues to be afebrile. Midline IV will be placed today. RLE cellulitis is improved the patient does have some residual edema. Patient home antibiotics are being managed by his primary care provider Dr. Childs, and he will complete a 10 day course of this with follow-up in his primary care's office. (2) Cellulitis of right foot: Code(s): L03.115 - Cellulitis of right lower limb Status: Acute Assessment and Plan: -as above. Much improved. -PT/OT consulted. -Tylenol for pain control -Continue arden wraps and leg elevation for edema control. -07/28 Lasix 40 mg IV x1. (3) Muscle cramps: Code(s): R25.2 - Cramp and spasm Status: Acute Assessment and Plan: -Stable. -Xray of shoulder shows OA -US of RLE negative for DVT (4) Type 2 diabetes mellitus with hyperglycemia: Code(s): E11.65 - Type 2 diabetes mellitus with hyperglycemia Status: Acute Assessment and Plan: -Pt was non compliant with his DM medication, Synjardy for couple of days -Continue sliding insulin, Accu-Cheks, and hypoglycemic protocol -Metformin XR 1000 mg daily & empagliflozen 12.5 mg daily continued -diabetic diet -Recent A1c 6.2; 07/29-blood sugars are much more controlled today, will continue patient's home medications upon discharge, no evidence of renal injury at this time. Did discuss diabetic foot care, as his foot cellulitis is the likely source of his infection. (5) Hyponatremia: Code(s): E87.1 - Hypo-osmolality and hyponatremia Status: Acute Assessment and Plan: -Hypovolemia hyponatremia versus SIADH -07/26/21 Sodium level 133. Not hyperglycemic or taking loop/thiazide diuretics. -Urine osmo pending. Urine sodium <40. -07/27 Sodium 139 and improved with IV fluids. Saline lock fluids. Monitor neuro status. -07/28 IV fluids stopped. -07/29 sodium within normal limits. (6) Generalized weakness: Code(s): R53.1 - Weakness Status: Acute Assessment and Plan: -likely due to acute infection & pain. - PT/OT evaluated and treated this patient during his stay, and observed improvement in ADLs, and gait pattern improvement. (7) Essential hypertension: Code(s): I10 - Essential (primary) hypertension Status: Chronic Assessment and Plan: -Stable. -Patient blood pressure was a little soft upon admission, will discharge patient with home meds continued, as he is mildly hypertensive today.
[2021-07-29 11:26] LABS: Glucose Point of Care 98 mg/dl (65-105)
[2021-07-29] MEDS: LIDOCAINE HCL 1% LOCAL INJ 2 ML AMPUL 5 ML INFILTRATE (12:15)
[2021-07-29 14:00] VITALS: BP 122/64; PULSE 68; RESP 17; TEMP 36.9; O2SAT 95
[2021-07-29] MEDS: SALINE LOCK FLUSH 10 ML IV PUSH (14:18)
[2021-07-29] MEDS: cefTRIAXone 2 GM in SODIUM CHLORIDE 0.9% IV 100 ML 200 ML IVPB (16:18)
== END 2021-07-29 17:10 | disposition home health service (06) | DRG 872 ==
LOC: ANHED 12:45 → ANH3MEDSUR 13:59
PROVIDERS: Family Medicine; Nurse Practitioner Adult Health; Nurse Practitioner Family; Physician Assistant; Admitting Provider Internal Medicine; Emergency Provider Emergency Medicine; PCP Family Medicine; Visit Provider Student in an Organized Health Care Education/Training Program
DX: A41.9 Sepsis, unspecified organism (principal); L03.115 Cellulitis of right lower limb; E87.1 Hypo-osmolality and hyponatremia; Z20.822 Contact with and (suspected) exposure to COVID-19; B95.61 Methicillin susceptible Staphylococcus aureus infection as the cause of diseases classified elsewhere; I10 Essential (primary) hypertension; E11.65 Type 2 diabetes mellitus with hyperglycemia; E78.2 Mixed hyperlipidemia; I25.10 Atherosclerotic heart disease of native coronary artery without angina pectoris; M15.9 Polyosteoarthritis, unspecified; F17.210 Nicotine dependence, cigarettes, uncomplicated; Z91.14 Patient's other noncompliance with medication regimen; Z90.49 Acquired absence of other specified parts of digestive tract; Z95.5 Presence of coronary angioplasty implant and graft; I25.2 Old myocardial infarction; Z79.82 Long term (current) use of aspirin
CPT/HCPCS: 36415; 36569; 71046; 73030; 73610; 73630; 80048; 80053; 80202; 81001; 82550; 82948; 83036; 83605; 83735; 83930; 83935; 84295; 84300; 84550; 85025; 85027; 86140; 87040; 87147; 87186; 93005; 93306; 93971; 96361; 96366; 96367; 96374; 96375; 96376; 97110; 97116; 97162; 97165; 97530; 97535; 99285; A9270; C1751; C9803; G0378; J0696; J0743; J1650; J1815; J1940; J2270; J2405; J3370; J7030; U0003; U0005

== ENCOUNTER 2021-08-03 12:04 | Outpatient (NON) | payer MEDICARE, SELFPAY ==
[2021-08-03 12:21] LABS: Basophils Absolute Auto 0.1 K/mm3 (0.0-0.1); Basophils Percent Auto 0.5 % (0.2-1.2); Eosinophils Absolute Auto 0.1 K/mm3 (0-0.3); Eosinophils Percent Auto 0.6 % (0-4.4); Hematocrit 38.7 % (42.0-52.0); Hemoglobin 12.8 g/dL (14.0-18.0); Immature Granulocyte Absolute 0.16 K/mm3 (0.00-0.031); Immature Granulocyte Percent A 1.3 % (0-0.5); Lymphocytes Absolute Auto 2.22 K/mm3 (0.9-3.2); Lymphocytes Percent Auto 18.5 % (18.3-44.2); Mean Corpuscular HGB Conc 33.1 g/dl (32-36); Mean Corpuscular Hemoglobin 33.4 pg (26-34); Mean Platelet Volume 9.7 fl (7.4-10.4); Monocytes Absolute Auto 0.8 K/mm3 (0.1-0.6); Monocytes Percent Auto 6.8 % (2.6-8.5); Neutrophils Absolute Auto 8.7 K/mm3 (1.3-6.7); Neutrophils Percent Auto 72.3 % (45.5-73.1); Platelet Count Result 389 k/mm3 (150-375); Red Blood Count 3.83 M/mm3 (4.6-6.20); Red Cell Distribution Width 13.9 % (11.5-14.5)
[2021-08-03 12:27] LABS: Alanine Aminotransferase 22 U/L (6-50); Albumin Level 3.2 g/dL (3.5-5.1); Alkaline Phosphatase 92 U/L (38-126); Anion Gap 3 mmol/L (8-16); Aspartate Amino Transferase 25 U/L (17-59); Bilirubin,Total 0.5 mg/dL (0.2-1.3); Blood Urea Nitrogen 20 mg/dL (9-20); CRP 15.4 mg/dL (<1.0); Calcium 8.3 mg/dL (8.4-10.2); Carbon Dioxide 29 mmol/L (22-30); Chloride 103 mmol/L (98-107); Estimated Glomerular Filt Rate > 60; Glucose 212 mg/dL (65-110); Potassium 4.4 mmol/L (3.4-5.0); Sodium 135 mmol/L (137-145)
== END 2021-08-03 12:05 | disposition home or self-care (01) ==
LOC: HOME HLTH 12:08
PROVIDERS: PCP Family Medicine; Visit Provider Family Medicine
DX: A41.9 Sepsis, unspecified organism (principal); L03.115 Cellulitis of right lower limb; Z45.2 Encounter for adjustment and management of vascular access device; E11.65 Type 2 diabetes mellitus with hyperglycemia; E87.1 Hypo-osmolality and hyponatremia; I10 Essential (primary) hypertension; F17.200 Nicotine dependence, unspecified, uncomplicated; Z51.81 Encounter for therapeutic drug level monitoring; Z79.2 Long term (current) use of antibiotics
CPT/HCPCS: 80053; 85025; 86140

== ENCOUNTER 2021-08-09 12:25 | Emergency (ER) | payer MEDICARE, SELFPAY ==
--- NOTE | ~2021-08-09 | XR_ITS ---
XR hip RT min 2V 08/09/2021 13:39 Indication: Right hip pain. History of osteomyelitis. Procedure: 2 views right hip Comparison: No prior studies for comparison. Findings: There is mild osteoarthritis of the right hip. There are surgical changes likely from previ ous hernia repair. There is a radiolucent lesion in the right femoral neck with sclerotic margins, li mickie benign. There are femoral vascular calcifications. No acute fracture or traumatic malalignment i s identified. Impression: 1: No acute fracture. 2: Mild osteoarthritis of the right hip. 3: Focal radiolucent lesion lateral margin of the right femoral neck in the subcapital location. Ther e are sclerotic margins. This is likely benign. Consider follow-up x-ray in 6 months to assess stabil ity. Reviewed, dictated and finalized at location B. Impression: 1: No acute fracture. 2: Mild osteoarthritis of the right hip. 3: Focal radiolucent lesion lateral margin of the right femoral neck in the sub capital location. There are sclerotic margins. This is likely benign. Consider follow-up x-ray in 6 months to assess stability.
--- NOTE | ~2021-08-09 | XR_ITS ---
XR knee RT min 4V DATE: 08/09/2021 13:39 INDICATION: Right knee pain. TECHNIQUE: 4 views COMPARISON: None FINDINGS: Prominent distention of the suprapatellar bursa consistent with knee joint effusion. Superior pole patellar enthesopathy at the quadriceps tendon insertion. No fracture or dislocation, periosteal reaction or bone destruction. Knee joint spaces appear well pr eserved. No radiopaque intra-articular loose body or chondrocalcinosis is noted. There is extensive calcification of the femoral and popliteal and trifurcation arteries. IMPRESSION: Prominent knee joint effusion Extensive arterial calcification Reviewed, dictated and finalized at location A.
--- NOTE | ~2021-08-09 | XR_ITS ---
XR ankle RT min 3V DATE: 08/09/2021 13:39 INDICATION: Right ankle pain TECHNIQUE: 4 views COMPARISON: None FINDINGS: No fracture or dislocation of the ankle or disruption of the ankle mortise. No periosteal r eaction or bone destruction. IMPRESSION: No significant abnormality Reviewed, dictated and finalized at location A. IMPRESSION: No significant abnormality
--- NOTE | ~2021-08-09 | US_ITS ---
EXAMINATION:US venous doppler LE RT INDICATION:Right leg pain and swelling TECHNIQUE: Multiple grayscale, color flow and Doppler images of the right lower extremity deep venous systems were obtained and reviewed. COMPARISON:Ultrasound dated 07/22/2021 FINDINGS: The common femoral, superficial femoral and popliteal veins demonstrate normal respiratory variation, augmentation and compressibility. Color flow is also seen within the posterior tibial, pe roneal, greater saphenous and profunda veins. There is deep venous thrombosis of the right gastrocnem ius vein. IMPRESSION: 1: Deep venous thrombosis of the right gastrocnemius vein. Reviewed, dictated and finalized at location B.
[2021-08-09 12:28] VITALS: BP 134/63; PULSE 77; RESP 16; TEMP 36.4; O2SAT 99
[2021-08-09 13:04] LABS: Alanine Aminotransferase 19 U/L (6-50); Albumin Level 3.7 g/dL (3.5-5.1); Alkaline Phosphatase 77 U/L (38-126); Anion Gap 4 mmol/L (8-16); Aspartate Amino Transferase 24 U/L (17-59); Bilirubin,Total 0.4 mg/dL (0.2-1.3); Blood Urea Nitrogen 20 mg/dL (9-20); Calcium 8.4 mg/dL (8.4-10.2); Carbon Dioxide 25 mmol/L (22-30); Chloride 104 mmol/L (98-107); Estimated CRCL calculation 101 ml/min; Estimated Glomerular Filt Rate > 60; Glucose 127 mg/dL (65-110); Potassium 4.3 mmol/L (3.4-5.0); Sodium 133 mmol/L (137-145)
[2021-08-09 13:06] LABS: Basophils Absolute Auto 0.1 K/mm3 (0.0-0.1); Basophils Percent Auto 0.7 % (0.2-1.2); Eosinophils Absolute Auto 0.1 K/mm3 (0-0.3); Eosinophils Percent Auto 0.8 % (0-4.4); Hematocrit 38.9 % (42.0-52.0); Hemoglobin 12.8 g/dL (14.0-18.0); Immature Granulocyte Absolute 0.09 K/mm3 (0.00-0.031); Immature Granulocyte Percent A 0.9 % (0-0.5); Lymphocytes Absolute Auto 2.97 K/mm3 (0.9-3.2); Lymphocytes Percent Auto 29.7 % (18.3-44.2); Mean Corpuscular HGB Conc 32.9 g/dl (32-36); Mean Corpuscular Hemoglobin 32.5 pg (26-34); Mean Corpuscular Volume 98.7 fl (80-100); Mean Platelet Volume 9.1 fl (7.4-10.4); Monocytes Absolute Auto 0.8 K/mm3 (0.1-0.6); Monocytes Percent Auto 8.1 % (2.6-8.5); Neutrophils Percent Auto 59.8 % (45.5-73.1); Platelet Count Result 403 k/mm3 (150-375); Red Blood Count 3.94 M/mm3 (4.6-6.20); Red Cell Distribution Width 13.4 % (11.5-14.5)
--- NOTE | 2021-08-09 14:01 | ED.EXTPRO ---
HPI - Extremity Problem General Chief complaint: Extremity Problem,Nontraumatic Stated complaint: right leg pain Time Seen by Provider: 08/09/21 13:58 History of Present Illness HPI Narrative: Patient is a 65-year-old male with a history of hypertension, type 2 diabetes, right lower extremity cellulitis, presenting to the emergency department for evaluation of persistent right leg pain. Patient with recent admission for sepsis secondary to right lower extremity cellulitis and was ultimately discharged home on IV antibiotics. Patient finished course of clindamycin yesterday with improvement in the redness, swelling in the right lower leg. Patient was noted to have persistent pain behind the right knee thus prompting his visit today. Pt denies redness and reports resolution of rash that had acutely worsened after taking keflex with discharge. Pt denies fever, chills, cough or dyspnea. Pt denies pleuritic pain on exam. He denies numbness or weakness. Patient has been on oral anticoagulation in the past when he experienced a provoked lower extremity DVT patient believes in the right lower extremity secondary to a distal right lower extremity fracture. States this was over 20 years ago. Related Data Home Medications Medication Instructions Recorded Confirmed aspirin 81 mg chewable tablet 81 mg PO DAILY 02/18/19 08/03/21 alirocumab 75 mg/mL subcutaneous See Rx Instructions .Route .COMPLEX 07/22/21 08/03/21 syringe empagliflozin 12.5 mg-metformin ER 500 tablet PO DAILY 07/22/21 08/03/21 1,000 mg tablet,extended rel 24 hr (Synjardy XR) Allergies Allergy/AdvReac Type Severity Reaction Status Date / Time ceftriaxone [From Rocephin] Allergy Intermediate rash/itchin Verified 08/03/21 15:23 g metformin Allergy Unknown hot flashes Verified 08/03/21 11:54 methylprednisolone Allergy Unknown severe leg Verified 08/03/21 11:54 cramps simvastatin Allergy Unknown severe leg Verified 08/03/21 11:54 cramps sertraline AdvReac Intermediate diarrhea, Verified 08/03/21 11:54 sleep disruption atorvastatin AdvReac myalgias Verified 08/03/21 11:54 rosuvastatin AdvReac myalgias Verified 08/03/21 11:54 Review of Systems Review of Systems: CONSTITUTIONAL: Denies fever, chills, or sweats. EYES: Denies visual changes, redness, or discharge. ENT: Denies rhinorrhea, congestion, sore throat, or otalgia. CARDIOVASCULAR: Denies chest pain, palpitations, or edema. RESPIRATORY: Denies cough or dyspnea. GASTROINTESTINAL: Denies abdominal pain, nausea, vomiting, or diarrhea. GENITOURINARY: Denies dysuria or hematuria. SKIN: Reports improvement of the rash that was initially covering thorax, lower extremity, upper extremities however he is MUSCULOSKELETAL: Denies back pain, patient also reporting chronic right hip pain, chronic pain behind the right knee, reports soreness in his right lower extremity NEUROLOGIC: Denies headache, numbness, or weakness. PS [facility] Past Medical History Medical History Coronary artery disease History of inferior [place]. Essential hypertension Mixed hyperlipidemia Tobacco use disorder Type 2 diabetes mellitus Surgical History Surgical History Cubital tunnel syndrome, bilateral (2018) Status post release. History of appendectomy (2007) History of arthroscopy of left knee (2005) Meniscal repair. History of bilateral carpal tunnel release (2016) History of heart artery stent (2019) Inferior [place] --> LUIS to proximal RCA. Staged PCI with LUIS to distal left circumflex. Family History Family History Father Hypertension Family history of cardiovascular disease Mother Family history of malignant neoplasm of breast in first degree relative Other Family history of malignant neoplasm of breast Social History Social History (Reviewed
--- NOTE | 2021-08-09 14:11 | PC.NURSE ---
REPORTS DC FROM HOSPITAL 07/30 FOR CELLULITIS AND SEPSIS. PT REPORTS SWELLING TO RLE AND REPORTS HE HOME HEALTH NURSE TOLD HIM LEG SHOULD STILL OT BE SWOLLEN. PT REPORTS PAIN BEHIND RIGHT KNEE.
[2021-08-09 14:41] VITALS: BP 133/70; PULSE 68; RESP 16; TEMP 36.4; O2SAT 98
[2021-08-09] MEDS: APIXABAN 5 MG TABLET PO (14:51)
== END 2021-08-09 15:04 | disposition home or self-care (01) ==
PROVIDERS: Emergency Medicine; Emergency Provider Emergency Medicine; PCP Family Medicine
DX: I82.4Z1 Acute embolism and thrombosis of unspecified deep veins of right distal lower extremity (principal); I10 Essential (primary) hypertension; I25.10 Atherosclerotic heart disease of native coronary artery without angina pectoris; I25.2 Old myocardial infarction; E78.2 Mixed hyperlipidemia; E11.9 Type 2 diabetes mellitus without complications; F17.210 Nicotine dependence, cigarettes, uncomplicated; M16.11 Unilateral primary osteoarthritis, right hip; M89.9 Disorder of bone, unspecified; Z79.01 Long term (current) use of anticoagulants; Z79.82 Long term (current) use of aspirin; Z79.84 Long term (current) use of oral hypoglycemic drugs
CPT/HCPCS: 36415; 73502; 73564; 73610; 80053; 85025; 93971; 99284; A9270

== ENCOUNTER 2021-08-13 11:59 | Emergency (ER) | payer MEDICARE, SELFPAY ==
[2021-08-13 12:11] VITALS: BP 134/73; PULSE 89; RESP 16; TEMP 36.1; O2SAT 98
--- NOTE | 2021-08-13 12:42 | ED.SKABFB ---
HPI - Skin/Abscess/Foreign Bdy General Chief complaint: Skin/Abscess/Foreign Body Stated complaint: reaction to blood thinners Time Seen by Provider: 08/13/21 12:40 Source: patient, family, RN notes reviewed and old records reviewed Mode of arrival: ambulatory Limitations: no limitations History of Present Illness HPI narrative: 65-year-old male accompanied by who presents to [facility] care with complaints of red raised rash to lower extremities and petechiae which started yesterday. Patient reports he was diagnosed on the with blood clot in his right lower leg and started on Eliquis. Patient had previously been hospitalized recently for sepsis and was on Vancomycin in the hospital and Rocephin. He developed reaction to Rocephin and had rash and medication was changed then to Clindamycin which he has completed. Patient has also flat scaly area behind lower right knee reports no itching or acute pain. Patient has noted swelling to right lower leg. MD complaint: rash and other (petechiae lower extremities) Onset (ago): day(s) (developed yesterday) Location: LLE and RLE Related Data Home Medications Medication Instructions Recorded Confirmed aspirin 81 mg chewable tablet 81 mg PO DAILY 02/18/19 08/03/21 alirocumab 75 mg/mL subcutaneous See Rx Instructions .Route .COMPLEX 07/22/21 08/03/21 syringe empagliflozin 12.5 mg-metformin ER 500 tablet PO DAILY 07/22/21 08/03/21 1,000 mg tablet,extended rel 24 hr (Synjardy XR) Allergies Allergy/AdvReac Type Severity Reaction Status Date / Time ceftriaxone [From Rocephin] Allergy Intermediate rash/itchin Verified 08/13/21 13:51 g metformin Allergy Unknown hot flashes Verified 08/13/21 13:51 methylprednisolone Allergy Unknown severe leg Verified 08/13/21 13:51 cramps simvastatin Allergy Unknown severe leg Verified 08/13/21 13:51 cramps sertraline AdvReac Intermediate diarrhea, Verified 08/13/21 13:51 sleep disruption atorvastatin AdvReac myalgias Verified 08/13/21 13:51 rosuvastatin AdvReac myalgias Verified 08/13/21 13:51 Review of Systems Review of Systems: CONSTITUTIONAL: Denies fever, chills, or sweats. EYES: Denies visual changes, redness, or discharge. ENT: Denies rhinorrhea, congestion, sore throat, or otalgia. CARDIOVASCULAR: Denies chest pain, palpitations, or edema. RESPIRATORY: Denies cough or dyspnea. GASTROINTESTINAL: Denies abdominal pain, nausea, vomiting, or diarrhea. GENITOURINARY: Denies dysuria or hematuria. SKIN: Positive for red rash and petechiae to bilateral lower extremities, scaly red irritated area to skin behind right knee area MUSCULOSKELETAL: Denies back pain, joint pain, or myalgia. NEUROLOGIC: Denies headache, numbness, continued weakness using cane to assist with ambulation PSYCHIATRIC: Denies anxiety or depression. [facility] Past Medical History Medical History Coronary artery disease History of inferior [place]. Essential hypertension Mixed hyperlipidemia Tobacco use disorder Type 2 diabetes mellitus Surgical History Surgical History Cubital tunnel syndrome, bilateral (2017) Status post release. History of appendectomy (2007) History of arthroscopy of left knee (2005) Meniscal repair. History of bilateral carpal tunnel release (2016) History of heart artery stent (2019) Inferior [place] --> LUIS to proximal RCA. Staged PCI with LUIS to distal left circumflex. Family History Family History Father Hypertension Family history of cardiovascular disease Mother Family history of malignant neoplasm of breast in first degree relative Other Family history of malignant neoplasm of breast Social History Social History Social History: Surrogate decision maker: Ashely Mullins, spouse. Code status: Full code. Years smoked:
== END 2021-08-13 13:11 | disposition short-term general hospital (02) ==
PROVIDERS: Emergency Provider Registered Nurse; PCP Family Medicine
DX: R23.3 Spontaneous ecchymoses (principal); T45.515A Adverse effect of anticoagulants, initial encounter; F17.210 Nicotine dependence, cigarettes, uncomplicated; I25.10 Atherosclerotic heart disease of native coronary artery without angina pectoris; I25.2 Old myocardial infarction; I10 Essential (primary) hypertension; E78.2 Mixed hyperlipidemia; E11.9 Type 2 diabetes mellitus without complications; Z95.5 Presence of coronary angioplasty implant and graft
CPT/HCPCS: 99212; G0463

== ENCOUNTER 2021-08-13 13:41 | Emergency (ER) | payer MEDICARE, SELFPAY ==
[2021-08-13 13:52] VITALS: BP 127/78; PULSE 82; RESP 16; TEMP 36.4; O2SAT 97
[2021-08-13] MEDS: AMOXICILLIN/CLAVULANATE K 875-125 MG TAB 1 TABLET PO (14:20)
[2021-08-13 14:37] LABS: Basophils Absolute Auto 0.1 K/mm3 (0.0-0.1); Basophils Percent Auto 0.9 % (0.2-1.2); Eosinophils Absolute Auto 0.2 K/mm3 (0-0.3); Eosinophils Percent Auto 1.7 % (0-4.4); Hematocrit 37.3 % (42.0-52.0); Hemoglobin 12.2 g/dL (14.0-18.0); Immature Granulocyte Absolute 0.12 K/mm3 (0.00-0.031); Immature Granulocyte Percent A 1.1 % (0-0.5); Lymphocytes Absolute Auto 3.39 K/mm3 (0.9-3.2); Lymphocytes Percent Auto 30.8 % (18.3-44.2); Mean Corpuscular HGB Conc 32.7 g/dl (32-36); Mean Corpuscular Hemoglobin 32.2 pg (26-34); Mean Corpuscular Volume 98.4 fl (80-100); Mean Platelet Volume 8.8 fl (7.4-10.4); Monocytes Absolute Auto 0.9 K/mm3 (0.1-0.6); Monocytes Percent Auto 8.2 % (2.6-8.5); Neutrophils Absolute Auto 6.3 K/mm3 (1.3-6.7); Neutrophils Percent Auto 57.3 % (45.5-73.1); Platelet Count Result 374 k/mm3 (150-375); Red Blood Count 3.79 M/mm3 (4.6-6.20); Red Cell Distribution Width 13.2 % (11.5-14.5)
[2021-08-13 14:46] LABS: Anion Gap 4 mmol/L (8-16); Blood Urea Nitrogen 19 mg/dL (9-20); Calcium 8.6 mg/dL (8.4-10.2); Carbon Dioxide 27 mmol/L (22-30); Chloride 104 mmol/L (98-107); Estimated CRCL calculation 115 ml/min; Estimated Glomerular Filt Rate > 60; Glucose 98 mg/dL (65-110); Potassium 4.1 mmol/L (3.4-5.0); Sodium 135 mmol/L (137-145)
[2021-08-13 14:49] LABS: INR 1.2; Prothrombin Time 14.9 Seconds (11.1-14.7)
[2021-08-13 14:50] LABS: Partial Thromboplastin Time 45.5 SECONDS (22.3-36.8)
--- NOTE | 2021-08-13 14:55 | ED.SKABFB ---
HPI - Skin/Abscess/Foreign Bdy General Chief complaint: Extremity Injury, Lower Stated complaint: leg issue Time Seen by Provider: 08/13/21 13:57 History of Present Illness HPI narrative: 65-year-old male presents with about a week of a dark purple rash to both lower legs, he states that in started out as small purple lesions that seem to come together, they are nonpainful, no discharge. Has not had this in the past, he had been seen recently and diagnosed with DVT and started on Eliquis, but no new medications no new trauma, fevers or chills. No abdominal pain, nausea or vomiting. Has had multiple skin infections in the past for which he has just finished his course of clindamycin prior to these rashes starting. Related Data Home Medications Medication Instructions Recorded Confirmed aspirin 81 mg chewable tablet 81 mg PO DAILY 02/18/19 08/03/21 alirocumab 75 mg/mL subcutaneous See Rx Instructions .Route .COMPLEX 07/22/21 08/03/21 syringe empagliflozin 12.5 mg-metformin ER 500 tablet PO DAILY 07/22/21 08/03/21 1,000 mg tablet,extended rel 24 hr (Synjardy XR) Allergies Allergy/AdvReac Type Severity Reaction Status Date / Time ceftriaxone [From Rocephin] Allergy Intermediate rash/itchin Verified 08/13/21 13:51 g metformin Allergy Unknown hot flashes Verified 08/13/21 13:51 methylprednisolone Allergy Unknown severe leg Verified 08/13/21 13:51 cramps simvastatin Allergy Unknown severe leg Verified 08/13/21 13:51 cramps sertraline AdvReac Intermediate diarrhea, Verified 08/13/21 13:51 sleep disruption atorvastatin AdvReac myalgias Verified 08/13/21 13:51 rosuvastatin AdvReac myalgias Verified 08/13/21 13:51 Review of Systems Review of Systems: CONST: No fever. HEENT: No sore throat C/V: No chest pain RESP: No cough GI: No abdominal pain, nausea or vomiting : Rash around groin M/S: Rash bilateral lower extremities SKIN: Rash bilateral lower extremities NEURO: [No headache or focal numbness or weakness] PSYCH: [No depression] PMFSH Past Medical History Medical History Coronary artery disease History of inferior [place]. Essential hypertension Mixed hyperlipidemia Tobacco use disorder Type 2 diabetes mellitus Surgical History Surgical History Cubital tunnel syndrome, bilateral (2018) Status post release. History of appendectomy (2007) History of arthroscopy of left knee (2005) Meniscal repair. History of bilateral carpal tunnel release (2016) History of heart artery stent (2019) Inferior [place] --> LUIS to proximal RCA. Staged PCI with LUIS to distal left circumflex. Family History Family History Father Hypertension Family history of cardiovascular disease Mother Family history of malignant neoplasm of breast in first degree relative Other Family history of malignant neoplasm of breast Social History Social History Social History: Surrogate decision maker: Ashely Mullins, spouse. Code status: Full code. Years smoked: 45 Smoking status: Current every day smoker Tobacco type: cigarettes Second hand tobacco smoke exposure: Yes Alcohol intake: current Drinks per week: 14 Alcohol use details: 3-4 beers, most nights of the week. 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 Spiritual care concerns: No Agree to blood products: Yes Exam Narrative: EXAMINATION OF ORGAN SYSTEMS/BODY AREAS: Constitutional: Vital signs per nursing GENERAL:[No acute distress, non-toxic appearing.] HEAD: Normal with no signs of head trauma. EYES: EOMI, conjunctiva normal ENT: Hearing grossly intact LUNGS: Nonlabored breathing. HEART: [Regular rate and rhythm] ABD: [Soft], [nontender to palpatio
[2021-08-13 15:00] VITALS: BP 121/69; PULSE 87; RESP 16; O2SAT 99
[2021-08-13] MEDS: MICONAZOLE NITRATE 2% CREAM 30 GM TUBE 1 APPLIC TOPICAL (15:00)
== END 2021-08-13 15:10 | disposition home or self-care (01) ==
PROVIDERS: Emergency Provider Emergency Medicine; PCP Family Medicine
DX: L01.03 Bullous impetigo (principal); D69.2 Other nonthrombocytopenic purpura; I25.10 Atherosclerotic heart disease of native coronary artery without angina pectoris; I25.2 Old myocardial infarction; I10 Essential (primary) hypertension; E78.2 Mixed hyperlipidemia; E11.9 Type 2 diabetes mellitus without complications; Z95.5 Presence of coronary angioplasty implant and graft; F17.210 Nicotine dependence, cigarettes, uncomplicated; Z79.82 Long term (current) use of aspirin; Z79.01 Long term (current) use of anticoagulants
CPT/HCPCS: 36415; 80048; 85025; 85610; 85730; 99283; A9270

== ENCOUNTER 2021-08-16 12:30 | Outpatient (CLI) | payer MEDICARE, SELFPAY ==
--- NOTE | ~2021-08-16 | MR_ITS ---
EXAMINATION: MR shoulder LT wo/w con DATE: 08/16/2021 13:40 INDICATION: Left shoulder pain. TECHNIQUE: Magnetic resonance imaging (MRI) of the left shoulder was performed without and with 15 mL MultiHance intravenous contrast. COMPARISON: Left shoulder radiograph 08/16/2021 FINDINGS: Coracoacromial arch: The acromion undersurface is curved in morphology (type II). There is severe acromioclavicular joint osteoarthritis. There is severe subacromial/subdeltoid bursitis with wall thickening and enhancement. Rotator cuff: There is a full-thickness tear involving supraspinatus and infraspinatus tendons measuring 5.0 cm ant erior to posterior by 5.0 cm proximal to distal. Teres minor tendon is normal. There is an articular- sided partial-thickness tear of subscapularis tendon. There is volume loss and mild fatty atrophy of the supraspinatus, infraspinatus, and subscapularis muscle bellies. There is increased T2-weighted si gnal intensity in the supraspinatus, infraspinatus, and subscapularis muscle bellies, consistent with subacute on chronic denervation. Biceps tendon and glenoid labrum: There is a complete tear of proximal biceps tendon. There is degenerative tearing of the glenoid labr um. Fluid: There is a large inhomogeneous glenohumeral joint effusion with synovial thickening and enhancement. Bones/cartilage: There is partial-thickness cartilage loss of humeral head and glenoid. IMPRESSION: 1. Large glenohumeral joint effusion and severe subacromial/subdeltoid bursitis. Given the clinical c oncern for infection, ultrasound-guided aspiration is recommended. 2. Massive full-thickness rotator cuff tear. 3. Complete tear of proximal biceps tendon. 4. Mild glenohumeral joint chondrosis. 5. Severe acromioclavicular joint osteoarthritis. Reviewed, dictated and finalized at location B. IMPRESSION: 1. Large glenohumeral joint effusion and severe subacromial/subdeltoid bursitis . Given the clinical concern for infection, ultrasound-guided aspiration is rec ommended. 2. Massive full-thickness rotator cuff tear. 3. Complete tear of proximal biceps tendon. 4. Mild glenohumeral joint chondrosis. 5. Severe acromioclavicular joint osteoarthritis.
== END 2021-08-16 12:31 | disposition home or self-care (01) ==
PROVIDERS: PCP Family Medicine; Visit Provider Orthopaedic Surgery
DX: M75.52 Bursitis of left shoulder (principal); M75.102 Unspecified rotator cuff tear or rupture of left shoulder, not specified as traumatic; S46.212A Strain of muscle, fascia and tendon of other parts of biceps, left arm, initial encounter; M19.012 Primary osteoarthritis, left shoulder
CPT/HCPCS: 73223; A9577

== ENCOUNTER 2021-08-16 15:23 | Inpatient (IN) | payer MEDICARE, SELFPAY ==
--- NOTE | ~2021-08-16 | US_ITS ---
EXAMINATION: US percutaneous drain w cath DATE: 08/17/2021 14:39 INDICATION: Septic left shoulder. TECHNIQUE: The procedure including the risks and benefits was discussed with the patient. Risks discu ssed included bleeding including hemorrhage and bile peritonitis. Oral and written consent were obtai jin. The patient was confirmed to be receiving appropriate antibiotic coverage. The skin overlying t he left shoulder was prepped and draped in usual sterile fashion. Anesthetic was administered with 1 % lidocaine subcutaneously. A 12 Fr catheter was inserted from anterior to posterior into the subdelt oid bursa by trocar technique utilizing continuous ultrasound guidance. The metal stiffener and troca r needle were removed, and the pigtail tip was locked. Fluid was aspirated and sent for culture and o ther studies as ordered by the referring physician. The catheter was stitched to the skin with suture . Antibiotic ointment and a sterile dressing were applied. An additional adhesive fixation device was applied. The catheter was then attached to suction drainage. There were no immediate complications. FINDINGS: Complex hypoechoic effusion with synovitis in the left glenohumeral joint and contiguous subacromial/ subdeltoid bursa with full-thickness rotator cuff tear. Ultrasound images demonstrate the catheter wi thin the subdeltoid bursa. 5 mL cloudy yellowish fluid was aspirated and sent to the lab. IMPRESSION: 1. Successful ultrasound-guided percutaneous drainage catheter tube placement into a complex appearin g fluid collection at the subdeltoid bursa which appears contiguous with the glenohumeral joint due t o a full-thickness rotator cuff tear. 2. 5 mL of yellowish fluid was sent for Gram stain, cultures, cell count and crystal analysis as orde red by the referring physician. 3. The catheter will be managed by Dr. Lewis. Reviewed, dictated and finalized at location A. IMPRESSION: 1. Successful ultrasound-guided percutaneous drainage catheter tube placement i nto a complex appearing fluid collection at the subdeltoid bursa which appears contiguous with the glenohumeral joint due to a full-thickness rotator cuff tea r. 2. 5 mL of yellowish fluid was sent for Gram stain, cultures, cell count and cr ystal analysis as ordered by the referring physician. 3. The catheter will be managed by Dr. Lewis.
[2021-08-16 15:26] VITALS: BP 128/66; PULSE 83; RESP 16; TEMP 36.6; O2SAT 97
--- NOTE | 2021-08-16 18:02 | ED.GENADULT ---
HPI - General Adult General Chief complaint: Extremity Injury, Upper Stated complaint: shoulder pain Time Seen by Provider: 08/16/21 17:15 History of Present Illness HPI narrative: pt sent in for left shoulder infection fluid collection seen on mri Related Data Home Medications Medication Instructions Recorded Confirmed aspirin 81 mg chewable tablet 81 mg PO DAILY 02/18/19 08/03/21 alirocumab 75 mg/mL subcutaneous See Rx Instructions .Route .COMPLEX 07/22/21 08/16/21 syringe empagliflozin 12.5 mg-metformin ER 500 tablet PO DAILY 07/22/21 08/16/21 1,000 mg tablet,extended rel 24 hr (Synjardy XR) acetaminophen 500 mg tablet 500 mg PO Q6H PRN 08/16/21 08/16/21 (Tylenol Extra Strength) Allergies Allergy/AdvReac Type Severity Reaction Status Date / Time ceftriaxone [From Rocephin] Allergy Intermediate rash/itchin Verified 08/16/21 08:43 g metformin Allergy Unknown hot flashes Verified 08/16/21 08:43 methylprednisolone Allergy Unknown severe leg Verified 08/16/21 08:43 cramps simvastatin Allergy Unknown severe leg Verified 08/16/21 08:43 cramps sertraline AdvReac Intermediate diarrhea, Verified 08/16/21 08:43 sleep disruption atorvastatin AdvReac myalgias Verified 08/16/21 08:43 rosuvastatin AdvReac myalgias Verified 08/16/21 08:43 PMFSH Past Medical History Medical History Arthritis Blood clot in vein Coronary artery disease History of inferior [place]. Diabetes Essential hypertension History of heart attack Hypertension Mixed hyperlipidemia Tobacco use disorder Type 2 diabetes mellitus Surgical History Surgical History Cubital tunnel syndrome, bilateral (2018) Status post release. History of appendectomy (2007) History of arthroscopy of left knee (2005) Meniscal repair. History of bilateral carpal tunnel release (2016) History of heart artery stent (2019) Inferior [place] --> LUIS to proximal RCA. Staged PCI with LUIS to distal left circumflex. History of shoulder surgery Family History Family History Father Hypertension Family history of cardiovascular disease Mother Family history of malignant neoplasm of breast in first degree relative Other Family history of malignant neoplasm of breast Social History Social History Social History: Surrogate decision maker: Ashely Mullins, spouse. Code status: Full code. Years smoked: 45 Smoking status: Current every day smoker Tobacco type: cigarettes Second hand tobacco smoke exposure: Yes Alcohol intake: current Drinks per week: 14 Alcohol use details: 3-4 beers, most nights of the week. Substance use: never Substance use type: does not use Additional occupation/education comments: Retired Need. Spiritual care concerns: No Agree to blood products: Yes Course Course Emergency Course: calling dr lewis and hospitalist for admission at 1803 Consultations Consultation #1: talked with Dr Joshua christian with lovenox and holding Noah planning for surgery and says fine to keep augmentin going at this time Vital Signs Vital signs: Vital Signs Temperature 36.6 C 08/16/21 15:26 Pulse Rate 83 08/16/21 15:26 Respiratory Rate 16 08/16/21 15:26 Blood Pressure 128/66 08/16/21 15:26 Pulse Oximetry 97 08/16/21 15:26 Oxygen Delivery Room Air 08/16/21 15:26 Temperature 36.6 C 08/16/21 15:26 Pulse Rate 83 08/16/21 15:26 Respiratory Rate 16 08/16/21 15:26 Blood Pressure 128/66 08/16/21 15:26 Pulse Oximetry 97 08/16/21 15:26 Oxygen Delivery Room Air 08/16/21 15:26 Medical Decision Making Vital Signs Vital Signs: Vital Signs Temperature 36.6 C 08/16/21 15:26 Pulse Rate 83 08/16/21 15:26 Respiratory Rate 16 08/16/21 15:26 Bl
[2021-08-16 18:34] LABS: Basophils Absolute Auto 0.1 K/mm3 (0.0-0.1); Basophils Percent Auto 0.5 % (0.2-1.2); Eosinophils Absolute Auto 0.4 K/mm3 (0-0.3); Eosinophils Percent Auto 2.9 % (0-4.4); Hematocrit 38.4 % (42.0-52.0); Hemoglobin 12.7 g/dL (14.0-18.0); Immature Granulocyte Absolute 0.12 K/mm3 (0.00-0.031); Lymphocytes Percent Auto 30.3 % (18.3-44.2); Mean Corpuscular HGB Conc 33.1 g/dl (32-36); Mean Corpuscular Hemoglobin 31.9 pg (26-34); Mean Corpuscular Volume 96.5 fl (80-100); Mean Platelet Volume 8.8 fl (7.4-10.4); Monocytes Percent Auto 8.2 % (2.6-8.5); Neutrophils Absolute Auto 6.8 K/mm3 (1.3-6.7); Neutrophils Percent Auto 57.1 % (45.5-73.1); Platelet Count Result 399 k/mm3 (150-375); Red Blood Count 3.98 M/mm3 (4.6-6.20); Red Cell Distribution Width 13.2 % (11.5-14.5); White Blood Count 11.9 K/mm3 (4.5-10.0)
[2021-08-16 18:44] LABS: INR 1.3; Prothrombin Time 15.5 Seconds (11.1-14.7)
[2021-08-16 18:45] LABS: Partial Thromboplastin Time 43.3 SECONDS (22.3-36.8)
[2021-08-16 18:48] LABS: Alanine Aminotransferase 14 U/L (6-50); Albumin Level 3.7 g/dL (3.5-5.1); Alkaline Phosphatase 77 U/L (38-126); Anion Gap 2 mmol/L (8-16); Aspartate Amino Transferase 28 U/L (17-59); Bilirubin,Total 0.3 mg/dL (0.2-1.3); Blood Urea Nitrogen 23 mg/dL (9-20); Calcium 8.7 mg/dL (8.4-10.2); Carbon Dioxide 29 mmol/L (22-30); Chloride 103 mmol/L (98-107); Estimated CRCL calculation 101 ml/min; Estimated Glomerular Filt Rate > 60; Glucose 108 mg/dL (65-110); Potassium 4.5 mmol/L (3.4-5.0); Sodium 134 mmol/L (137-145)
[2021-08-16] MEDS: HYDROcodone/acetaminophen (*CRX) 5-325 MG TABLET 1 TAB PO (19:05)
--- NOTE | 2021-08-16 19:12 | PC.NURSE ---
Patient report given to GISELA Garsia. All questions answered and care of patient transferred.
[2021-08-16 19:21] VITALS: O2SAT 95
[2021-08-16] MEDS: ENOXAPARIN 80 MG/0.8 ML SYRINGE SUB-Q (19:24)
--- NOTE | 2021-08-16 19:30 | PM.IMHP ---
H&P: HPI History of Present Illness Date/Time: 08/16/211929 Chief Complaint: Septic shoulder Narrative: Patient is a 65-year-old male with past medical history of arthritis, cellulitis, diabetes, hypertension, who presented the ED with complaints of septic shoulder. Patient stated that he went to his primary care provider who then sent him to Dr. Sebastian scales. Dr. Segura had ordered a MRI due to fluid and heat in the left shoulder. After MRI was performed and read patient was directed to go to the ED for a septic shoulder for evacuation and surgical procedures. Patient stated that he was here recently for cellulitis in his leg. He denies any chest pain, shortness a breath, nausea, vomiting, diarrhea, constipation. He did state that he has been having sweats fevers and chills especially at night stating that he is soaking through his clothes and into the bed sheets. His shoulder is swollen and big and a little warm. Pain currently as a 2-3/10. He also has petechiae bilaterally on his leg. On 08/09/21 patient was noted to have a DVT and the right gastrocnemius vein. Patient was started on Eliquis however does not seem to be working at this time. Will consult Dr. Becker for further instructions. Review of Systems Review of Systems: All systems reviewed & are unremarkable except as noted in HPI and below PMFSH Past Medical History Medical History Arthritis Blood clot in vein Coronary artery disease History of inferior [place]. Diabetes Essential hypertension History of heart attack Hypertension Mixed hyperlipidemia Tobacco use disorder Type 2 diabetes mellitus Surgical History Surgical History Cubital tunnel syndrome, bilateral (2018) Status post release. History of appendectomy (2007) History of arthroscopy of left knee (2005) Meniscal repair. History of bilateral carpal tunnel release (2016) History of heart artery stent (2019) Inferior [place] --> LUIS to proximal RCA. Staged PCI with LUIS to distal left circumflex. History of shoulder surgery Family History Family History Father Hypertension Family history of cardiovascular disease Mother Family history of malignant neoplasm of breast in first degree relative Other Family history of malignant neoplasm of breast Social History Social History (Updated 08/16/21 @ 21:25 by HERMAN Michael) Social History: Surrogate decision maker: Ashely Mullins, spouse. Code status: Full code. Smoking packs per day: 0.5 Smoking cigarettes per day: 10.0 Years smoked: 40 Smoking pack-years: 20.00 Smoking status: Current every day smoker Tobacco type: cigarettes Second hand tobacco smoke exposure: Yes Alcohol intake: current Drinks per week: 2 Alcohol use details: 3-4 beers, most nights of the week. 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 Gender identity (if verbalized by the patient): Male Sexual Orientation (if Verbalized by the Patient): Straight or Heterosexual Spiritual care concerns: No Agree to blood products: Yes Meds Home Medications and Allergies Home Medications Medication Instructions Recorded Confirmed Type lisinopril 20 2 tablet PO DAILY #180 tabs 05/04/21 08/16/21 Rx mg-hydrochlorothiazide 12.5 mg tablet alirocumab 75 mg/mL subcutaneous See Rx Instructions .Route .COMPLEX 07/22/21 08/16/21 History syringe empagliflozin 12.5 mg-metformin ER 500 tablet PO DAILY 07/22/21 08/16/21 History 1,000 mg tablet,extended rel 24 hr (Synjardy XR) apixaban 5 mg tablet (Eliquis) 5 mg PO BID 30 days #60 tabs 08/09/21 08/16/21 Rx acetamino
[2021-08-16 20:15] VITALS: BP 114/60; PULSE 77; RESP 18; TEMP 36.9; O2SAT 94; BMI 23.1
[2021-08-16 21:39] VITALS: BP 116/57; PULSE 73; RESP 17; TEMP 36.7; O2SAT 95
[2021-08-16 21:41] LABS: Glucose Point of Care 169 mg/dl (65-105)
[2021-08-17] MEDS: HYDROcodone/acetaminophen (*CRX) 5-325 MG TABLET 1 TAB PO ×2 (02:54→15:19)
--- NOTE | 2021-08-17 04:23 | ADMGEN ---
This patient, Jared Mullins, was admitted to 3 [facility] Surg Room 309-01. Patient/family oriented to hospital policies and general routines including ID bracelet, bed and alarms, visiting hours, pain management, procedures, bathroom and other care routines, personal items, smoking policy, room service/diet, and visiting hours. Information on how to activate the Rapid Response Team has been discussed. Patient/Family are encouraged to report perceived risks to care and to ask questions if they do not understand what they are told or what they should do.
[2021-08-17 05:40] VITALS: BP 118/59; PULSE 72; RESP 18; TEMP 36.7; O2SAT 97
[2021-08-17 06:14] LABS: Basophils Absolute Auto 0.1 K/mm3 (0.0-0.1); Basophils Percent Auto 0.7 % (0.2-1.2); Eosinophils Absolute Auto 0.3 K/mm3 (0-0.3); Eosinophils Percent Auto 3.3 % (0-4.4); Hematocrit 35.9 % (42.0-52.0); Hemoglobin 11.7 g/dL (14.0-18.0); Immature Granulocyte Percent A 1.1 % (0-0.5); Lymphocytes Absolute Auto 3.54 K/mm3 (0.9-3.2); Lymphocytes Percent Auto 37.3 % (18.3-44.2); Mean Corpuscular HGB Conc 32.6 g/dl (32-36); Mean Corpuscular Hemoglobin 31.5 pg (26-34); Mean Corpuscular Volume 96.8 fl (80-100); Mean Platelet Volume 8.9 fl (7.4-10.4); Monocytes Percent Auto 10.2 % (2.6-8.5); Neutrophils Absolute Auto 4.5 K/mm3 (1.3-6.7); Neutrophils Percent Auto 47.4 % (45.5-73.1); Platelet Count Result 358 k/mm3 (150-375); Red Blood Count 3.71 M/mm3 (4.6-6.20); Red Cell Distribution Width 13.2 % (11.5-14.5); White Blood Count 9.5 K/mm3 (4.5-10.0)
[2021-08-17 06:39] LABS: Alanine Aminotransferase 12 U/L (6-50); Albumin Level 3.3 g/dL (3.5-5.1); Alkaline Phosphatase 60 U/L (38-126); Anion Gap 3 mmol/L (8-16); Aspartate Amino Transferase 19 U/L (17-59); Bilirubin,Total 0.4 mg/dL (0.2-1.3); Blood Urea Nitrogen 18 mg/dL (9-20); Calcium 8.3 mg/dL (8.4-10.2); Carbon Dioxide 26 mmol/L (22-30); Chloride 107 mmol/L (98-107); Estimated CRCL calculation 136 ml/min; Estimated Glomerular Filt Rate > 60; Glucose 103 mg/dL (65-110); Potassium 4.2 mmol/L (3.4-5.0); Sodium 136 mmol/L (137-145)
[2021-08-17 07:51] LABS: Glucose Point of Care 105 mg/dl (65-105)
[2021-08-17] MEDS: ENOXAPARIN 80 MG/0.8 ML SYRINGE SUB-Q ×2 (08:19→18:42)
--- NOTE | 2021-08-17 10:00 | PM.IMPN ---
Progress Note: A&P Assessment and Plan (1) Septic arthritis of shoulder, left: Code(s): M00.9 - Pyogenic arthritis, unspecified Status: Acute Assessment and Plan: MRI of the shoulder shows large glenohumeral joint effusion with severe subacromial/subdeltoid bursitis, thickness rotator cuff tear, tear of the proximal biceps tendon Orthopedics consulted thank you for your help joint effusion with drain placement scheduled for today WBCs 9.5 Continue cefepime and vancomycin Culture joint aspiration Trend vital signs and labs (2) Purpura: Code(s): D69.2 - Other nonthrombocytopenic purpura Status: Acute Assessment and Plan: Noted on the bilateral lower extremities Could be from Eliquis Change Eliquis to Lovenox Consult Dr. Becker (3) DVT (deep venous thrombosis): Code(s): I82.409 - Acute embolism and thrombosis of unspecified deep veins of unspecified lower extremity Status: Acute Assessment and Plan: DVT noted in the right gastrocnemius vein per venous Doppler from 08/09/2021 Lovenox full dose q.12 Hold home Eliquis Consult Dr. 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 Qualified Code(s): E11.9 - Type 2 diabetes mellitus without complications Code(s): E11.9 - Type 2 diabetes mellitus without complications Status: Acute Assessment and Plan: Current glucose 105 Hold home medications Accu-Cheks AC and HS Tried glucose Insulin sliding scale Adjust therapy as indicated (5) Essential hypertension: Code(s): I10 - Essential (primary) hypertension Status: Chronic Assessment and Plan: Current blood pressure 118/59 Continue home lisinopril/HCTZ Trend blood pressure Adjust therapy as indicated (6) Current smoker: Code(s): F17.200 - Nicotine dependence, unspecified, uncomplicated Status: Acute Assessment and Plan: Smoking cessation education provided for 5 minutes Nicotine patch and gum provided Time Spent With Patient Time with patient: Greater than 35 minutes Subjective Date/time seen: 08/17/21 1000 Interval history: 08/17/21999 Patient is doing well today. Patient still does have pain which she calls a 4-5/10. Stated that he got pretty decent sleep however he did have sweats throughout the night and was but when he woke up. Patient scheduled to go for his joint aspiration today. They are going to place a drain. was present upon interview and did have some questions including why we did blood cultures and what the plan was. Patient currently denies any chest pain, shortness of breath, nausea, vomiting, diarrhea, constipation, weakness or fatigue. He did state that he feels like his right leg looks better today. 08/16/21? 1930 Patient is a 65-year-old male with past medical history of arthritis, cellulitis, diabetes, hypertension, who presented the ED with complaints of septic shoulder.? Patient stated that he went to his primary care provider who then sent him to Dr. Cortes today.? Dr. Segura had ordered a MRI due to fluid and heat in the left shoulder.? After MRI was performed and read patient was directed to go to the ED for a septic shoulder for evacuation and surgical procedures.? Patient stated that he was here recently for cellulitis in his leg.? He denies any chest pain, shortness a breath, nausea, vomiting, diarrhea, constipation.? He did state that he has been having sweats fevers and chills especially at night stating that he is soaking through his clothes and into the bed sheets.? His shoulder is swollen and big and a little warm.? Pain currently as a 2-3/10.? He also has petechiae bilaterally on his leg.? On 08/09/21 patient was noted to have a DVT and the right gastrocnemius vein.? Patient was started on Eliquis h
--- NOTE | 2021-08-17 10:00 | P.PNIM_ITS ---
Progress Note: A&P Assessment and Plan (1) Septic arthritis of shoulder, left: Code(s): M00.9 - Pyogenic arthritis, unspecified Status: Acute Assessment and Plan: * MRI of the shoulder shows large glenohumeral joint effusion with severe subacromial/subdeltoid bursitis, thickness rotator cuff tear, tear of the proximal biceps tendon * Orthopedics consulted thank you for your help * joint effusion with drain placement scheduled for today * WBCs 9.5 * Continue cefepime and vancomycin * Culture joint aspiration * Trend vital signs and labs (2) Purpura: Code(s): D69.2 - Other nonthrombocytopenic purpura Status: Acute Assessment and Plan: * Noted on the bilateral lower extremities * Could be from Eliquis * Change Eliquis to Lovenox * Consult Dr. Becker (3) DVT (deep venous thrombosis): Code(s): I82.409 - Acute embolism and thrombosis of unspecified deep veins of unspecified lower extremity Status: Acute Assessment and Plan: * DVT noted in the right gastrocnemius vein per venous Doppler from 08/09/2021 * Lovenox full dose q.12 * Hold home Eliquis * Consult Dr. Becker (4) Type 2 diabetes mellitus without complications: Qualifiers: Diabetes mellitus fdc insulin use: without fdc use Qualified Code(s): E11.9 - Type 2 diabetes mellitus without complications Code(s): E11.9 - Type 2 diabetes mellitus without complications Status: Acute Assessment and Plan: * Current glucose 105 * Hold home medications * Accu-Cheks AC and HS * Tried glucose * Insulin sliding scale * Adjust therapy as indicated (5) Essential hypertension: Code(s): I10 - Essential (primary) hypertension Status: Chronic Assessment and Plan: * Current blood pressure 118/59 * Continue home lisinopril/HCTZ * Trend blood pressure * Adjust therapy as indicated (6) Current smoker: Code(s): F17.200 - Nicotine dependence, unspecified, uncomplicated Status: Acute Assessment and Plan: * Smoking cessation education provided for 5 minutes * Nicotine patch and gum provided Time Spent With Patient Time with patient: Greater than 35 minutes Subjective Date/time seen: 08/17/21 1000 Interval history: 08/17/21999 Patient is doing well today. Patient still does have pain which she calls a 4- 07/12. Stated that he got pretty decent sleep however he did have sweats throughout the night and was but when he woke up. Patient scheduled to go for his joint aspiration today. They are going to place a drain. was present upon interview and did have some questions including why we did blood cultures and what the plan was. Patient currently denies any chest pain, shortness of breath, nausea, vomiting, diarrhea, constipation, weakness or fatigue. He did state that he feels like his right leg looks better today. 08/16/21? 1929 Patient is a 65-year-old male with past medical history of arthritis, cellulitis, diabetes, hypertension, who presented the ED with complaints of septic shoulder.? Patient stated that he went to his primary care provider who then sent him to Dr. Cortes today.? Dr. Segura had ordered a MRI due to fluid and heat in the left shoulder.? After MRI was performed and read patient was directed to go to the ED for a septic shoulder for evacuation and surgical procedures.? Patient stated that he was h
[2021-08-17 11:22] LABS: Glucose Point of Care 162 mg/dl (65-105)
--- NOTE | 2021-08-17 12:09 | PM.CNOR ---
Assessment and Plan Assessment and plan (1) Left shoulder pain: Code(s): M25.512 - Pain in left shoulder Status: Acute Plan 65-year-old male with fluid collection left shoulder. Is due to get aspiration today with placement of a percutaneous drain. Once I am able to look at the results of that, decision will be made as to whether not we will plan on surgical washout. I discussed this with the patient and his . Following. History of Present Illness HPI Consult date: 08/17/21 Chief complaint: septic arthritis shoulder left Narrative: 65-year-old male with fluid collection left shoulder. Please refer to my office note from August 16, 2021. [facility] Past Medical History Medical History Arthritis Blood clot in vein Coronary artery disease History of inferior [place]. Diabetes Essential hypertension History of heart attack Hypertension Mixed hyperlipidemia Tobacco use disorder Type 2 diabetes mellitus Surgical History Surgical History Cubital tunnel syndrome, bilateral (2017) Status post release. History of appendectomy (2007) History of arthroscopy of left knee (2005) Meniscal repair. History of bilateral carpal tunnel release (2016) History of heart artery stent (2019) Inferior [place] --> LUIS to proximal RCA. Staged PCI with LUIS to distal left circumflex. History of shoulder surgery Family History Family History Father Hypertension Family history of cardiovascular disease Mother Family history of malignant neoplasm of breast in first degree relative Other Family history of malignant neoplasm of breast Social History Social History Social History: Surrogate decision maker: Ashely Mullins, spouse. Code status: Full code. Smoking packs per day: 0.5 Smoking cigarettes per day: 10.0 Years smoked: 40 Smoking pack-years: 20.00 Smoking status: Current every day smoker Tobacco type: cigarettes Second hand tobacco smoke exposure: Yes Alcohol intake: current Drinks per week: 2 Alcohol use details: 3-4 beers, most nights of the week. 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 Gender identity (if verbalized by the patient): Male Sexual Orientation (if Verbalized by the Patient): Straight or Heterosexual Spiritual care concerns: No Agree to blood products: Yes Meds Home Medications and Allergies Home Medications Medication Instructions Recorded Confirmed Type lisinopril 20 2 tablet PO DAILY #180 tabs 05/04/21 08/17/21 Rx mg-hydrochlorothiazide 12.5 mg tablet alirocumab 75 mg/mL subcutaneous See Rx Instructions .Route .COMPLEX 07/22/21 08/17/21 History syringe empagliflozin 12.5 mg-metformin ER 500 tablet PO DAILY 07/22/21 08/17/21 History 1,000 mg tablet,extended rel 24 hr (Synjardy XR) apixaban 5 mg tablet (Eliquis) 5 mg PO BID 30 days #60 tabs 08/09/21 08/16/21 Rx acetaminophen 500 mg tablet 500 mg PO Q6H PRN Pain 08/16/21 08/17/21 History (Tylenol Extra Strength) ascorbate calcium (vitamin C) 500 500 mg PO DAILY 08/16/21 08/16/21 History mg capsule Allergies Allergy/AdvReac Type Severity Reaction Status Date / Time ceftriaxone [From Rocephin] Allergy Intermediate rash/itchin Verified 08/16/21 19:06 g metformin Allergy Unknown hot flashes Verified 08/16/21 19:06 methylprednisolone Allergy Unknown severe leg Verified 08/16/21 19:06 cramps simvastatin Allergy Unknown severe leg Verified 08/16/21 19:06 cramps sertraline AdvReac Intermediate diarrhea, Verified 08/16/21 19:06 sleep disruption
--- NOTE | 2021-08-17 13:34 | PCDIET ---
Physician consult for gut health due to pt being on several antibiotics. Spoke with as pt was down for a procedure. Pt stools are currently fairly normal, occasionally soft. Pt has requested a daily probiotic and yogurt all meals, food and nutrition staff is aware. Banitrol was suggested, informed that banitrol was a stool bulkening agent if stools were loose. Agreed to send it daily.
[2021-08-17 14:00] VITALS: BP 129/66; PULSE 75; RESP 18; O2SAT 96
[2021-08-17 16:14] LABS: Glucose Point of Care 178 mg/dl (65-105)
[2021-08-17 16:20] LABS: Source Synovial Fluid Synovial fluid
[2021-08-17 16:22] LABS: Appearance Synovial Fluid Cloudy (Clear); Color Synovial Fluid Other (Colorless); Lymphocytes Synovial Fluid 3 %; Monocytes Synovial Fluid 3 %; Neutrophils Synovial Fluid 94 % (0-25); RBC Synovial Fluid 14680 /uL (0-0)
[2021-08-17 17:02] LABS: Crystals Synovial Fluid None Seen (None Seen)
--- NOTE | 2021-08-17 18:38 | PDONCCN ---
HPI - Date of Consult Date/Time: 08/17/21 18:38 Requesting Physician: Becky Pastrana DO Primary Care Provider: Sabine Childs MD - Consult Narrative Reason for consult: Hypercoagulable state Narrative: Jared Mullins is a 65 year old male who was discharged home on July 29 after being treated for septicemia. He developed right lower extremity cellulitis as well. Patient developed pain and swelling in the right lower extremity and DVT was diagnosed involving the right gastrocnemius vein on the Doppler studies done on August 09, 2021. Patient has a previous history of right lower extremity DVT 30 years ago after the accident. He denies any provoking factors including recent injury and trauma. On the provoking factor was his cellulitis. He was started on Eliquis but developed rash involving the left lower extremity. He came into the hospital on August 16, 2021 and was admitted with septic shoulder. MRI showed fluid in the left shoulder. Patient had aspiration of the fluid done and percutaneous drain was placed. He was started on Lovenox and Eliquis was discontinued. He denies previous history of thromboembolic event including stroke and heart attack. There is no family history of blood clotting disorder as well. His leg seems to be improving with improvement in swelling and discomfort. Review of Systems - Review of Systems All systems reviewed & are unremarkable except as noted in HPI and [facility] Medical History: Medical History (Last Reviewed 08/17/21 @ 12:09 by Kit Lewis MD) Arthritis Blood clot in vein Coronary artery disease History of inferior [place]. Diabetes Essential hypertension History of heart attack Hypertension Mixed hyperlipidemia Tobacco use disorder Type 2 diabetes mellitus Surgical History: Surgical History (Last Reviewed 08/17/21 @ 12:09 by Kit Lewis MD) Cubital tunnel syndrome, bilateral Onset Date: 2018 Status post release. History of appendectomy Onset Date: 2007 History of arthroscopy of left knee Onset Date: 2005 Meniscal repair. History of bilateral carpal tunnel release Onset Date: 2016 History of heart artery stent Onset Date: 2019 Inferior [place] --> LUIS to proximal RCA. Staged PCI with LUIS to distal left circumflex. History of shoulder surgery Family History: Family History (Last Reviewed 08/17/21 @ 12:09 by Kit Lewis MD) Father Hypertension Family history of cardiovascular disease Mother Family history of malignant neoplasm of breast in first degree relative Other Family history of malignant neoplasm of breast - Social History Social History: Social History (Last Reviewed 08/17/21 @ 12:09 by Kit Lewis MD) Gender Identity: Gender identity (if verbalized by the patient): Male Sexual Orientation: Sexual Orientation (if Verbalized by the Patient): Straight or Heterosexual Alcohol Use: Alcohol intake: current Drinks per week: 2 Alcohol use details: 3-4 beers, most nights of the week. However has not had much since he has been very sick Substance Use: Substance use: never Substance use type: does not use Others: Spiritual care concerns: No Agree to blood products: Yes Living Arrangements: Living arrangements: with family Oppucation/Education: Occupation/Education: retired Smoking Status: Smoking status: Current every day smoker Tobacco type: cigarettes Second hand tobacco smoke exposure: Yes Smoking Pack-years: Smoking packs per day: 0.5 Smoking cigarettes per day: 10.0 Years smoked: 40 Smoking pack-years: 20.00 Meds Home Medications Medication Instructions Recorded Confirmed Type lisinopril 20 2 tablet PO DAILY #180 tabs 05/04/21 08/17/21 Rx mg-hydrochlorothiazide 12.5 mg tablet alirocumab 75 mg/mL subcutaneous See Rx Instructions .Route .COMPLEX 07/22/21 08/17/21 History syringe empagliflozin
[2021-08-17 20:00] VITALS: PULSE 69; RESP 18; O2SAT 99
[2021-08-17 20:50] LABS: Glucose Point of Care 158 mg/dl (65-105)
[2021-08-17 21:49] VITALS: BP 122/71; PULSE 69; RESP 18; TEMP 37.1; O2SAT 99
[2021-08-18] MEDS: HYDROcodone/acetaminophen (*CRX) 5-325 MG TABLET 1 TAB PO ×3 (00:22→21:58)
[2021-08-18 05:59] LABS: Basophils Absolute Auto 0.1 K/mm3 (0.0-0.1); Basophils Percent Auto 0.9 % (0.2-1.2); Eosinophils Absolute Auto 0.3 K/mm3 (0-0.3); Eosinophils Percent Auto 3.1 % (0-4.4); Hematocrit 38.6 % (42.0-52.0); Hemoglobin 12.7 g/dL (14.0-18.0); Immature Granulocyte Absolute 0.09 K/mm3 (0.00-0.031); Immature Granulocyte Percent A 0.9 % (0-0.5); Lymphocytes Absolute Auto 3.79 K/mm3 (0.9-3.2); Lymphocytes Percent Auto 39.9 % (18.3-44.2); Mean Corpuscular HGB Conc 32.9 g/dl (32-36); Mean Corpuscular Hemoglobin 31.9 pg (26-34); Monocytes Percent Auto 10.2 % (2.6-8.5); Neutrophils Absolute Auto 4.3 K/mm3 (1.3-6.7); Platelet Count Result 385 k/mm3 (150-375); Red Blood Count 3.98 M/mm3 (4.6-6.20); Red Cell Distribution Width 13.1 % (11.5-14.5); White Blood Count 9.5 K/mm3 (4.5-10.0)
[2021-08-18 06:00] VITALS: BP 122/71; PULSE 68; RESP 18; TEMP 36.2; O2SAT 97
[2021-08-18] MEDS: ENOXAPARIN 80 MG/0.8 ML SYRINGE SUB-Q ×2 (06:12→17:51)
[2021-08-18 06:19] LABS: Alanine Aminotransferase 13 U/L (6-50); Albumin Level 3.7 g/dL (3.5-5.1); Alkaline Phosphatase 67 U/L (38-126); Anion Gap 4 mmol/L (8-16); Aspartate Amino Transferase 17 U/L (17-59); Bilirubin,Total 0.4 mg/dL (0.2-1.3); Blood Urea Nitrogen 15 mg/dL (9-20); Calcium 8.4 mg/dL (8.4-10.2); Carbon Dioxide 27 mmol/L (22-30); Chloride 106 mmol/L (98-107); Estimated CRCL calculation 136 ml/min; Estimated Glomerular Filt Rate > 60; Glucose 129 mg/dL (65-110); Potassium 4.3 mmol/L (3.4-5.0); Sodium 137 mmol/L (137-145)
[2021-08-18 07:50] LABS: Glucose Point of Care 137 mg/dl (65-105)
--- NOTE | 2021-08-18 08:10 | PM.IMPN ---
Progress Note: A&P Assessment and Plan (1) Septic arthritis of shoulder, left: Code(s): M00.9 - Pyogenic arthritis, unspecified Status: Acute Assessment and Plan: MRI of the shoulder shows large glenohumeral joint effusion with severe subacromial/subdeltoid bursitis, thickness rotator cuff tear, tear of the proximal biceps tendon Orthopedics consulted thank you for your help Drain placed in US which drained 5ml of yellow fluid 08/17/21 Shin-close drain in place with small amount of yellow clear drainage Cultures sent and pending Labs shows cloudy yellow fluid with 86078 RBC, 09773 Nuc cells, neutrophils 94, with no crystals WBCs 9.5 cefepime and vancomycin, adjust when cultures return Trend vital signs and labs Remains afebrile (2) Purpura: Code(s): D69.2 - Other nonthrombocytopenic purpura Status: Acute Assessment and Plan: Noted on the bilateral lower extremities Getting better, still a couple of small sites on the bilateral lower extremities Could be from Eliquis Change Eliquis to Lovenox Consult Dr. Becker Recommended that the patient stay on lovenox for 4 weeks and then follow up for Xarelto there after (3) DVT (deep venous thrombosis): Code(s): I82.409 - Acute embolism and thrombosis of unspecified deep veins of unspecified lower extremity Status: Acute Assessment and Plan: DVT noted in the right gastrocnemius vein per venous Doppler from 08/09/2021 Lovenox full dose q.12 Hold home Eliquis Consult Dr. Becker Per hematology continue lovenox for 4 weeks then change to Xarelto (4) Type 2 diabetes mellitus without complications: Qualifiers: Diabetes mellitus termination clerk insulin use: without fci use Qualified Code(s): E11.9 - Type 2 diabetes mellitus without complications Code(s): E11.9 - Type 2 diabetes mellitus without complications Status: Acute Assessment and Plan: Current glucose 129 Hold home medications Accu-Cheks AC and HS Tried glucose Insulin sliding scale Adjust therapy as indicated (5) Essential hypertension: Code(s): I10 - Essential (primary) hypertension Status: Chronic Assessment and Plan: Current blood pressure 122/71 Continue home lisinopril/HCTZ Trend blood pressure Adjust therapy as indicated (6) Current smoker: Code(s): F17.200 - Nicotine dependence, unspecified, uncomplicated Status: Acute Assessment and Plan: Smoking cessation education provided for 5 minutes Nicotine patch and gum provided Time Spent With Patient Time with patient: Greater than 35 minutes Subjective Date/time seen: 08/18/21809 Interval history: 08/18/21809 Patient states that he is doing better today. He does still have a pain 3/10. He stated that he has been walking around however at seems to be a little weak. He denies any chest pain, shortness of breath, nausea, vomiting, diarrhea or constipation. He did have a bowel movement yesterday and stated that it was fine. Labs look to be doing well awaiting culture results from the synovial fluid. Updated patient with current care plan of care and answered all questions patient verbalized understanding. 08/17/21 1000 Patient is doing well today. Patient still does have pain which she calls a 4-5/10. Stated that he got pretty decent sleep however he did have sweats throughout the night and was but when he woke up. Patient scheduled to go for his joint aspiration today. They are going to place a drain. was present upon interview and did have some questions including why we did blood cultures and what the plan was. Patient currently denies any chest pain, shortness of breath, nausea, vomiting, diarrhea, constipation, weakness or fatigue. He did state that he feels like his right leg looks better today. 08/16/21? 1929 Patient is a 65-ye
--- NOTE | 2021-08-18 08:10 | P.PNIM_ITS ---
Progress Note: A&P Assessment and Plan (1) Septic arthritis of shoulder, left: Code(s): M00.9 - Pyogenic arthritis, unspecified Status: Acute Assessment and Plan: * MRI of the shoulder shows large glenohumeral joint effusion with severe subacromial/subdeltoid bursitis, thickness rotator cuff tear, tear of the proximal biceps tendon * Orthopedics consulted thank you for your help * Drain placed in US which drained 5ml of yellow fluid 08/17/21 * Shin-close drain in place with small amount of yellow clear drainage * Cultures sent and pending * Labs shows cloudy yellow fluid with 71120 RBC, 40539 Nuc cells, neutrophils 94, with no crystals * WBCs 9.5 * cefepime and vancomycin, adjust when cultures return * Trend vital signs and labs * Remains afebrile (2) Purpura: Code(s): D69.2 - Other nonthrombocytopenic purpura Status: Acute Assessment and Plan: * Noted on the bilateral lower extremities * Getting better, still a couple of small sites on the bilateral lower extremities * Could be from Eliquis * Change Eliquis to Lovenox * Consult Dr. Becker * Recommended that the patient stay on lovenox for 4 weeks and then follow up for Xarelto there after (3) DVT (deep venous thrombosis): Code(s): I82.409 - Acute embolism and thrombosis of unspecified deep veins of unspecified lower extremity Status: Acute Assessment and Plan: * DVT noted in the right gastrocnemius vein per venous Doppler from 08/09/2021 * Lovenox full dose q.12 * Hold home Eliquis * Consult Dr. Becker * Per hematology continue lovenox for 4 weeks then change to Xarelto (4) Type 2 diabetes mellitus without complications: Qualifiers: Diabetes mellitus termite technician insulin use: without termite technician use Qualified Code(s): E11.9 - Type 2 diabetes mellitus without complications Code(s): E11.9 - Type 2 diabetes mellitus without complications Status: Acute Assessment and Plan: * Current glucose 129 * Hold home medications * Accu-Cheks AC and HS * Tried glucose * Insulin sliding scale * Adjust therapy as indicated (5) Essential hypertension: Code(s): I10 - Essential (primary) hypertension Status: Chronic Assessment and Plan: * Current blood pressure 122/71 * Continue home lisinopril/HCTZ * Trend blood pressure * Adjust therapy as indicated (6) Current smoker: Code(s): F17.200 - Nicotine dependence, unspecified, uncomplicated Status: Acute Assessment and Plan: * Smoking cessation education provided for 5 minutes * Nicotine patch and gum provided Time Spent With Patient Time with patient: Greater than 35 minutes Subjective Date/time seen: 08/18/21809 Interval history: 08/18/21809 Patient states that he is doing better today. He does still have a pain /10. He stated that he has been walking around however at seems to be a little weak. He denies any chest pain, shortness of breath, nausea, vomiting, diarrhea or constipation. He did have a bowel movement yesterday and stated that it was fine. Labs look to be doing well awaiting culture results from the synovial fluid. Updated patient with current care plan of care and answered all questions patient verbalized understanding. 08/17/21 1000 Patient is doing well today. Patient still does have pain which she calls a 4- 510. Stated po
[2021-08-18 11:41] LABS: Glucose Point of Care 158 mg/dl (65-105)
[2021-08-18 14:00] VITALS: BP 114/63; PULSE 54; RESP 18; TEMP 36.8; O2SAT 97
[2021-08-18 16:26] LABS: Glucose Point of Care 152 mg/dl (65-105)
--- NOTE | 2021-08-18 16:33 | PM.PNORT ---
Progress Note: A&P Assessment and Plan (1) Septic arthritis of shoulder, left: Code(s): M00.9 - Pyogenic arthritis, unspecified Status: Acute Assessment and Plan: At this point doing quite well. Given the different antibiotics that he has been on a definitive organism may not be able to be identified and hand I discussed this. I will consult the ID pharmacist for input on possible empiric coverage. I do think that given the severity of this he probably needs to have a PICC line with several weeks of IV antibiotics. I will discuss this with the ID ada accommodation consultant. Following. No plan for surgery at the present. Subjective Subjective Date/Time Seen: 08/18/21 16:33 Interval history: This document created with [id number] technology and is subject to information systems operator irregularities. 65-year-old male hospital day two status post aspiration and drain placement left shoulder. Overall feeling well and having very little discomfort in his left shoulder compared to prior to the procedure. Review of Systems Review of Systems: All systems reviewed & are unremarkable except as noted in HPI and below Constitutional: Constitutional: Reports as per HPI Exam Const: General: cooperative, no acute distress and alert Nutritional Appearance: other Orientation/consciousness: patient oriented x3 Limitations: no limitations Extrem: General: normal to inspection Other: Exam of the left shoulder shows normal contour. No erythema. Well-fixed drain anteriorly. Able to elevate arm on his own to about 95 or 100? active, to about 120 passive. Neurovascular status intact left upper extremity. Objective Data Vital Signs Vital Signs: Vital Signs - 24 hr 08/17/21 21:49 08/17/21 20:00 08/18/21 06:00 Temperature 98.7 F 97.1 F L Pulse Rate 69 69 68 Respiratory Rate 18 18 18 Blood Pressure 122/71 122/71 Pulse Oximetry 99 99 97 Oxygen Delivery Room Air 08/18/21 14:00 Temperature 98.2 F Pulse Rate 54 L Respiratory Rate 18 Blood Pressure 114/63 Pulse Oximetry 97 Oxygen Delivery Intake/Output Intake/Output: Intake & Output 08/15/21 08/16/21 08/17/21 08/18/21 23:59 23:59 23:59 23:59 Intake Total 1997 580 / 580 Output Total 700 / 700 50 / 50 Balance 1298 / 1298 530 / 530 50 milliliters serous drainage overnight. Looks like he has probably another 25 or 30 milliliters currently in the collection bag. Meds/Results Medications: Active Medications Generic Name Dose Route Start Last Admin Trade Name Freq PRN Reason Stop Dose Admin Acetaminophen 650 mg 08/16/21 21:47 Acetaminophen 325 Mg Tablet PO Q4H PRN Mild Pain (1-3) or Fever Hydrocodone Bitart/Acetaminophen 1 tab 08/16/21 21:47 08/18/21 11:16 Hydrocodone/Acetaminophen (*Crx) 5-325 Mg Tablet PO 1 tab Q4H PRN Administration Moderate Pain (4-6) Dextrose 12.5 gm 08/16/21 21:38 Dextrose 50% 25 Gm/50 Ml Syringe IV PUSH PRN PRN Hypoglycemia Protocol Enoxaparin Sodium 80 mg 08/17/21 07:00 08/18/21 06:12 Enoxaparin 80 Mg/0.8 Ml Syringe SUB-Q 80 mg Q12H CHERYL Administration Glucagon 1 mg 08/16/21 21:38 Glucagon For Inj 1 Mg Vial IM PRN PRN Hypoglycemia Protocol Glucose 15 gm 08/16/21 21:38 Glucose Oral Gel 15 Gm Of Glucse In 37.5 Gm Tube PO PRN PRN Hypoglycemia Protocol Dextrose 1,000 mls @ 100 mls/hr 08/16/21 21:38 Dextrose 5% 1,000 Ml IVPB PRN PRN Hypoglycemia Protocol Insulin Aspart 3 - 6 units 08/17/21 08:00 08/18/21 12:05 Insulin Aspart (*Bkc) 100 Units/Ml SUB-Q Not Given TIDWM CHERYL Protocol Morphine Sulfate 2 mg 08/16/21 21:47 Morphine Sulfate (*Crx) 2 Mg/Ml Inj IV PUSH Q4H PRN Pain Rated 7-10 Naloxone HCl 0.1 mg 08/16/21 21:47 Naloxone Hcl 0.4 Mg/Ml Vial IV PUSH Q2M PRN Opiate Reversal Nicotine 1 patch 08/17/21 09:00 08/18/21 08:56 Nicotine (*Pbkc) 21 Mg P
[2021-08-18 19:48] VITALS: PULSE 54; RESP 18; O2SAT 97
[2021-08-18 21:20] VITALS: BP 118/70; PULSE 71; RESP 20; TEMP 36.8; O2SAT 96
[2021-08-18 22:46] LABS: Glucose Point of Care 130 mg/dl (65-105)
[2021-08-19] MEDS: HYDROcodone/acetaminophen (*CRX) 5-325 MG TABLET 1 TAB PO ×2 (04:08→21:41)
[2021-08-19 06:00] VITALS: BP 124/68; PULSE 71; RESP 20; TEMP 37.1; O2SAT 96
[2021-08-19 06:11] LABS: Basophils Absolute Auto 0.1 K/mm3 (0.0-0.1); Eosinophils Absolute Auto 0.3 K/mm3 (0-0.3); Hematocrit 34.7 % (42.0-52.0); Hemoglobin 11.6 g/dL (14.0-18.0); Immature Granulocyte Absolute 0.08 K/mm3 (0.00-0.031); Immature Granulocyte Percent A 0.9 % (0-0.5); Lymphocytes Absolute Auto 3.46 K/mm3 (0.9-3.2); Mean Corpuscular HGB Conc 33.4 g/dl (32-36); Mean Corpuscular Hemoglobin 31.4 pg (26-34); Mean Platelet Volume 9.1 fl (7.4-10.4); Monocytes Absolute Auto 0.8 K/mm3 (0.1-0.6); Monocytes Percent Auto 8.7 % (2.6-8.5); Neutrophils Percent Auto 46.4 % (45.5-73.1); Platelet Count Result 349 k/mm3 (150-375); Red Blood Count 3.69 M/mm3 (4.6-6.20); Red Cell Distribution Width 12.8 % (11.5-14.5); White Blood Count 8.6 K/mm3 (4.5-10.0)
[2021-08-19 06:28] LABS: Alanine Aminotransferase 12 U/L (6-50); Albumin Level 3.3 g/dL (3.5-5.1); Alkaline Phosphatase 61 U/L (38-126); Anion Gap 3 mmol/L (8-16); Aspartate Amino Transferase 16 U/L (17-59); Bilirubin,Total 0.3 mg/dL (0.2-1.3); Blood Urea Nitrogen 14 mg/dL (9-20); Calcium 8.3 mg/dL (8.4-10.2); Carbon Dioxide 26 mmol/L (22-30); Chloride 107 mmol/L (98-107); Estimated CRCL calculation 136 ml/min; Estimated Glomerular Filt Rate > 60; Glucose 138 mg/dL (65-110); Magnesium 1.9 mg/dL (1.6-2.3); Potassium 4.1 mmol/L (3.4-5.0); Sodium 136 mmol/L (137-145)
[2021-08-19] MEDS: ENOXAPARIN 80 MG/0.8 ML SYRINGE SUB-Q ×2 (07:39→19:12)
[2021-08-19 08:08] LABS: Glucose Point of Care 149 mg/dl (65-105)
--- NOTE | 2021-08-19 08:24 | PM.PNORT ---
Progress Note: A&P Assessment and Plan (1) Septic arthritis of shoulder, left: Code(s): M00.9 - Pyogenic arthritis, unspecified Status: Acute Plan For some reason the antibiotics were not continued. He will be started today on Ancef 2 grams q.8 hours IV based on his previous blood culture results noted in the chart. I have consulted with the ID pharmacist this morning. Depending on what the cultures may or may not show we will formulate an outpatient treatment plan. Therapy will be ordered to help him start to mobilize his left shoulder. Following. Subjective Subjective Date/Time Seen: 08/19/21 08:24 Interval history: This document created with [id number] technology and is subject to senior enlisted advisor irregularities. HD 3 Patient having very little discomfort. Expresses boredom. Exam Const: General: cooperative, no acute distress and alert Nutritional Appearance: other Orientation/consciousness: patient oriented x3 Extrem: General: normal to inspection and other Other: Exam of the left shoulder shows normal contour. He does have difficulty elevating the arm up overhead. Deltoid functioning. Decent internal and external rotation strength but some weakness noted in elevation. Has stiffness with passive elevation as well. Neurovascular status unremarkable left upper extremity. Objective Data Vital Signs Vital Signs: Vital Signs - 24 hr 08/18/21 14:00 08/18/21 19:48 08/18/21 21:20 Temperature 98.2 F 98.3 F Pulse Rate 54 L 54 L 71 Respiratory Rate 18 18 20 Blood Pressure 114/63 118/70 Pulse Oximetry 97 97 96 Oxygen Delivery Room Air 08/19/21 06:00 Temperature 98.8 F Pulse Rate 71 Respiratory Rate 20 Blood Pressure 124/68 Pulse Oximetry 96 Oxygen Delivery Intake/Output Intake/Output: Intake & Output 08/16/21 08/17/21 08/18/21 08/19/21 23:59 23:59 23:59 23:59 Intake Total 1997 200 / 200 Output Total 700 / 700 65 / 65 Balance 1298 / 1298 1954 / 1954 185 / 185 Meds/Results Medications: Active Medications Generic Name Dose Route Start Last Admin Trade Name Freq PRN Reason Stop Dose Admin Acetaminophen 500 mg 08/18/21 20:45 Acetaminophen 500 Mg Tablet PO Q6H PRN Mild Pain (1-3) Hydrocodone Bitart/Acetaminophen 1 tab 08/16/21 21:47 08/19/21 04:08 Hydrocodone/Acetaminophen (*Crx) 5-325 Mg Tablet PO 1 tab Q4H PRN Administration Moderate Pain (4-6) Ascorbic Acid 500 mg 08/19/21 09:00 Ascorbic Acid 500 Mg Tablet PO 09/18/21 08:59 DAILY [facility] Dextrose 12.5 gm 08/16/21 21:38 Dextrose 50% 25 Gm/50 Ml Syringe IV PUSH PRN PRN Hypoglycemia Protocol Enoxaparin Sodium 80 mg 08/17/21 07:00 08/19/21 07:39 Enoxaparin 80 Mg/0.8 Ml Syringe SUB-Q 80 mg Q12H CHERYL Administration Glucagon 1 mg 08/16/21 21:38 Glucagon For Inj 1 Mg Vial IM PRN PRN Hypoglycemia Protocol Glucose 15 gm 08/16/21 21:38 Glucose Oral Gel 15 Gm Of Glucse In 37.5 Gm Tube PO PRN PRN Hypoglycemia Protocol Hydrochlorothiazide 25 mg 08/19/21 09:00 Hydrochlorothiazide 25 Mg Tablet PO 09/18/21 08:59 DAILY [facility] Dextrose 1,000 mls @ 100 mls/hr 08/16/21 21:38 Dextrose 5% 1,000 Ml IVPB PRN PRN Hypoglycemia Protocol Cefazolin Sodium 2 gm in 50 mls @ 100 mls/hr 08/19/21 08:00 Ancef 2 Gm/D5w 50 Ml IVPB Q8HR [facility] Insulin Aspart 3 - 6 units 08/17/21 08:00 08/18/21 16:41 Insulin Aspart (*Bkc) 100 Units/Ml SUB-Q Not Given TIDWM [facility] Protocol Lisinopril 40 mg 08/19/21 09:00 Lisinopril 20 Mg Tablet PO 09/18/21 08:59 DAILY [facility] Morphine Sulfate 2 mg 08/16/21 21:47 Morphine Sulfate (*Crx) 2 Mg/Ml Inj IV PUSH Q4H PRN Pain Rated 7-10 Naloxone HCl 0.1 mg 08/16/21 21:47 Naloxone Hcl 0.4 Mg/Ml Vial IV PUSH Q2M PRN Opiate Reversal Nicotine 1 patch 08/17/21 09:00 08/18/21 08:56
[2021-08-19] MEDS: ceFAZolin 2 GM/D5W 50 ML 2 GM/50 ML BAG IVPB ×3 (09:16→21:34)
[2021-08-19] MEDS: hydroCHLOROthiazide 25 MG TABLET PO (09:17)
[2021-08-19] MEDS: ASCORBIC ACID 500 MG TABLET PO (09:17)
[2021-08-19] MEDS: lisinopriL 20 MG TABLET 40 MG PO (09:17)
[2021-08-19] MEDS: ACETAMINOPHEN 500 MG TABLET PO (10:41)
[2021-08-19] MEDS: SACCHAROMYCES BOULARDII 250 MG CAPSULE PO ×2 (10:42→18:21)
--- NOTE | 2021-08-19 10:45 | P.PNIM_ITS ---
Progress Note: A&P Assessment and Plan (1) Septic arthritis of shoulder, left: Code(s): M00.9 - Pyogenic arthritis, unspecified Status: Acute Assessment and Plan: * MRI of the shoulder shows large glenohumeral joint effusion with severe subacromial/subdeltoid bursitis, thickness rotator cuff tear, tear of the proximal biceps tendon * Orthopedics consulted thank you for your help * Drain placed in US which drained 5ml of yellow fluid 08/17/21 * Shin-close drain in place with small amount of yellow clear drainage, still draining * Cultures no growth, many white blood cells present, but still pending * Labs shows cloudy yellow fluid with 81957 RBC, 99967 Nuc cells, neutrophils 94, with no crystals * WBCs 8.6 * IV cefazolin * Trend vital signs and labs * Remains afebrile (2) Purpura: Code(s): D69.2 - Other nonthrombocytopenic purpura Status: Acute Assessment and Plan: * Noted on the bilateral lower extremities * Getting better, still a couple of small sites on the bilateral lower extremities * Could be from Eliquis * Change Eliquis to Lovenox * Consult Dr. Becker * Recommended that the patient stay on lovenox for 4 weeks and then follow up for Xarelto there after (3) DVT (deep venous thrombosis): Code(s): I82.409 - Acute embolism and thrombosis of unspecified deep veins of unspecified lower extremity Status: Acute Assessment and Plan: * DVT noted in the right gastrocnemius vein per venous Doppler from 08/09/2021 * Lovenox full dose q.12 * Hold home Eliquis * Consult Dr. Becker * Per hematology continue lovenox for 4 weeks then change to Xarelto (4) Type 2 diabetes mellitus without complications: Qualifiers: Diabetes mellitus half-way insulin use: without termite helper use Qualified Code(s): E11.9 - Type 2 diabetes mellitus without complications Code(s): E11.9 - Type 2 diabetes mellitus without complications Status: Acute Assessment and Plan: * Current glucose 138 * Hold home medications * Accu-Cheks AC and HS * Tried glucose * Insulin sliding scale * Adjust therapy as indicated (5) Essential hypertension: Code(s): I10 - Essential (primary) hypertension Status: Chronic Assessment and Plan: * Current blood pressure 124/68 * Continue home lisinopril/HCTZ * Trend blood pressure * Adjust therapy as indicated (6) Current smoker: Code(s): F17.200 - Nicotine dependence, unspecified, uncomplicated Status: Acute Assessment and Plan: * Smoking cessation education provided for 5 minutes * Nicotine patch and gum provided Time Spent With Patient Time with patient: Greater than 35 minutes Subjective Date/time seen: 08/19/21 10:45 Interval history: 08/19/21 1045 Patient was sitting in the chair. he stated that he is feeling better. He denies any chest pain, shortness of breath, nausea, vomiting, diarrhea, or constipation. His was at the nurses station requesting probiotic, which has been added. Shin-Close drain still in place, very little yellow clear drainage present. 08/18/21 0810 Patient states that he is doing better today. He does still have a pain 3/10. He stated that he has been walking around however at seems to be a little weak. He denies any chest pain, shortness of breath, nausea, vomiting, diarrhea or constipation. H
--- NOTE | 2021-08-19 10:45 | PM.IMPN ---
Progress Note: A&P Assessment and Plan (1) Septic arthritis of shoulder, left: Code(s): M00.9 - Pyogenic arthritis, unspecified Status: Acute Assessment and Plan: MRI of the shoulder shows large glenohumeral joint effusion with severe subacromial/subdeltoid bursitis, thickness rotator cuff tear, tear of the proximal biceps tendon Orthopedics consulted thank you for your help Drain placed in US which drained 5ml of yellow fluid 08/17/21 Shin-close drain in place with small amount of yellow clear drainage, still draining Cultures no growth, many white blood cells present, but still pending Labs shows cloudy yellow fluid with 08528 RBC, 47566 Nuc cells, neutrophils 94, with no crystals WBCs 8.6 IV cefazolin Trend vital signs and labs Remains afebrile (2) Purpura: Code(s): D69.2 - Other nonthrombocytopenic purpura Status: Acute Assessment and Plan: Noted on the bilateral lower extremities Getting better, still a couple of small sites on the bilateral lower extremities Could be from Eliquis Change Eliquis to Lovenox Consult Dr. Becker Recommended that the patient stay on lovenox for 4 weeks and then follow up for Xarelto there after (3) DVT (deep venous thrombosis): Code(s): I82.409 - Acute embolism and thrombosis of unspecified deep veins of unspecified lower extremity Status: Acute Assessment and Plan: DVT noted in the right gastrocnemius vein per venous Doppler from 08/09/2021 Lovenox full dose q.12 Hold home Eliquis Consult Dr. Becker Per hematology continue lovenox for 4 weeks then change to Xarelto (4) Type 2 diabetes mellitus without complications: Qualifiers: Diabetes mellitus rn transitional insulin use: without mcc use Qualified Code(s): E11.9 - Type 2 diabetes mellitus without complications Code(s): E11.9 - Type 2 diabetes mellitus without complications Status: Acute Assessment and Plan: Current glucose 138 Hold home medications Accu-Cheks AC and HS Tried glucose Insulin sliding scale Adjust therapy as indicated (5) Essential hypertension: Code(s): I10 - Essential (primary) hypertension Status: Chronic Assessment and Plan: Current blood pressure 124/68 Continue home lisinopril/HCTZ Trend blood pressure Adjust therapy as indicated (6) Current smoker: Code(s): F17.200 - Nicotine dependence, unspecified, uncomplicated Status: Acute Assessment and Plan: Smoking cessation education provided for 5 minutes Nicotine patch and gum provided Time Spent With Patient Time with patient: Greater than 35 minutes Subjective Date/time seen: 08/19/21 10:45 Interval history: 08/19/21 1045 Patient was sitting in the chair. he stated that he is feeling better. He denies any chest pain, shortness of breath, nausea, vomiting, diarrhea, or constipation. His was at the nurses station requesting probiotic, which has been added. Shin-Close drain still in place, very little yellow clear drainage present. 08/18/21 0810 Patient states that he is doing better today. He does still have a pain 3/10. He stated that he has been walking around however at seems to be a little weak. He denies any chest pain, shortness of breath, nausea, vomiting, diarrhea or constipation. He did have a bowel movement yesterday and stated that it was fine. Labs look to be doing well awaiting culture results from the synovial fluid. Updated patient with current care plan of care and answered all questions patient verbalized understanding. 08/17/21 1000 Patient is doing well today. Patient still does have pain which she calls a 4-5/10. Stated that he got pretty decent sleep however he did have sweats throughout the night and was but when he woke up. Patient scheduled to go for his joint aspiration today. They are going to doe
[2021-08-19 11:58] LABS: Glucose Point of Care 185 mg/dl (65-105)
[2021-08-19 13:29] LABS: Partial Thromboplastin Time 41.5 SECONDS (22.3-36.8)
[2021-08-19 14:00] VITALS: BP 106/60; PULSE 70; RESP 18; TEMP 36.3; O2SAT 99
[2021-08-19 16:35] LABS: Glucose Point of Care 121 mg/dl (65-105)
[2021-08-19 20:00] VITALS: PULSE 67; RESP 22; O2SAT 97
[2021-08-19 20:33] VITALS: BP 118/65; PULSE 67; RESP 22; TEMP 37.1; O2SAT 97
[2021-08-19 21:49] LABS: Glucose Point of Care 167 mg/dl (65-105)
[2021-08-20] MEDS: ACETAMINOPHEN 500 MG TABLET PO ×3 (04:50→19:42)
[2021-08-20] MEDS: ceFAZolin 2 GM/D5W 50 ML 2 GM/50 ML BAG IVPB ×3 (05:08→21:02)
[2021-08-20 05:49] VITALS: BP 119/68; PULSE 60; RESP 16; TEMP 36.3; O2SAT 95
[2021-08-20 06:07] LABS: Basophils Absolute Auto 0.1 K/mm3 (0.0-0.1); Eosinophils Absolute Auto 0.2 K/mm3 (0-0.3); Eosinophils Percent Auto 2.4 % (0-4.4); Hematocrit 35.6 % (42.0-52.0); Hemoglobin 11.6 g/dL (14.0-18.0); Immature Granulocyte Absolute 0.07 K/mm3 (0.00-0.031); Immature Granulocyte Percent A 0.8 % (0-0.5); Lymphocytes Absolute Auto 3.87 K/mm3 (0.9-3.2); Lymphocytes Percent Auto 41.8 % (18.3-44.2); Mean Corpuscular HGB Conc 32.6 g/dl (32-36); Mean Corpuscular Hemoglobin 31.4 pg (26-34); Mean Corpuscular Volume 96.5 fl (80-100); Monocytes Absolute Auto 0.9 K/mm3 (0.1-0.6); Monocytes Percent Auto 9.2 % (2.6-8.5); Neutrophils Absolute Auto 4.2 K/mm3 (1.3-6.7); Neutrophils Percent Auto 44.8 % (45.5-73.1); Platelet Count Result 356 k/mm3 (150-375); Red Blood Count 3.69 M/mm3 (4.6-6.20); White Blood Count 9.3 K/mm3 (4.5-10.0)
[2021-08-20 06:17] LABS: Alanine Aminotransferase 11 U/L (6-50); Albumin Level 3.4 g/dL (3.5-5.1); Alkaline Phosphatase 65 U/L (38-126); Anion Gap 4 mmol/L (8-16); Aspartate Amino Transferase 17 U/L (17-59); Bilirubin,Total 0.4 mg/dL (0.2-1.3); Blood Urea Nitrogen 14 mg/dL (9-20); Calcium 8.4 mg/dL (8.4-10.2); Carbon Dioxide 26 mmol/L (22-30); Chloride 105 mmol/L (98-107); Estimated CRCL calculation 136 ml/min; Estimated Glomerular Filt Rate > 60; Glucose 136 mg/dL (65-110); Magnesium 1.9 mg/dL (1.6-2.3); Sodium 135 mmol/L (137-145)
[2021-08-20] MEDS: ENOXAPARIN 80 MG/0.8 ML SYRINGE SUB-Q ×2 (07:00→18:14)
--- NOTE | 2021-08-20 07:21 | PM.PNORT ---
Progress Note: A&P Assessment and Plan (1) Septic arthritis of shoulder, left: Code(s): M00.9 - Pyogenic arthritis, unspecified Status: Acute Plan No organism identified as of yet. Await three day cultures. As per previous discussion will likely need to treat empirically. Based on prior MSSA cultures could very likely be able to do this with four week course of oral antibiotics. Therapy ordered for left shoulder. Following. Subjective Subjective Date/Time Seen: 08/20/21 07:21 Post Op day: HD 3 Principal diagnosis: Dx: Septic left shoulder Exam Const: General: cooperative, alert and awake Orientation/consciousness: patient oriented x3 HENMT: Head: normal to inspection Ears: hearing grossly normal bilaterally Resp: Effort & Inspection: able to speak in complete sentences GI: Inspection: non-distended GI Palp: No abdominal tenderness Neuro: General: patient oriented x3 Extrem: Other: Exam of the left shoulder shows no significant swelling. Very little discomfort with passive motion. Difficulty raising arm on own and passively. Psych: Mental Status: mental status grossly normal Objective Data Vital Signs Vital Signs: Vital Signs - 24 hr 08/19/21 14:00 08/19/21 08:00 08/19/21 20:33 Temperature 97.4 F L 98.7 F Pulse Rate 70 67 Respiratory Rate 18 22 H Blood Pressure 106/60 118/65 Pulse Oximetry 99 97 Oxygen Delivery Room Air 08/19/21 20:00 08/20/21 05:49 Temperature 97.4 F L Pulse Rate 67 60 Respiratory Rate 22 H 16 Blood Pressure 119/68 Pulse Oximetry 97 95 Oxygen Delivery Room Air Intake/Output Intake/Output: Intake & Output 08/17/21 08/18/21 08/19/21 08/20/21 23:59 23:59 23:59 23:59 Intake Total 1997 / 1997 1274 / 1274 150 / 150 Output Total 700 / 700 65 / 65 1320 / 1320 Balance 1298 / 1298 1954 / 1954 -46 / -46 150 / 150 Meds/Results Medications: Active Medications Generic Name Dose Route Start Last Admin Trade Name Freq PRN Reason Stop Dose Admin Acetaminophen 500 mg 08/18/21 20:45 08/20/21 04:50 Acetaminophen 500 Mg Tablet PO 500 mg Q6H PRN Administration Mild Pain (1-3) Hydrocodone Bitart/Acetaminophen 1 tab 08/16/21 21:47 08/19/21 21:41 Hydrocodone/Acetaminophen (*Crx) 5-325 Mg Tablet PO 1 tab Q4H PRN Administration Moderate Pain (4-6) Ascorbic Acid 500 mg 08/19/21 09:00 08/19/21 09:17 Ascorbic Acid 500 Mg Tablet PO 09/18/21 08:59 500 mg DAILY CHERYL Administration Dextrose 12.5 gm 08/16/21 21:38 Dextrose 50% 25 Gm/50 Ml Syringe IV PUSH PRN PRN Hypoglycemia Protocol Enoxaparin Sodium 80 mg 08/17/21 07:00 08/20/21 07:00 Enoxaparin 80 Mg/0.8 Ml Syringe SUB-Q 80 mg Q12H CHERYL Administration Glucagon 1 mg 08/16/21 21:38 Glucagon For Inj 1 Mg Vial IM PRN PRN Hypoglycemia Protocol Glucose 15 gm 08/16/21 21:38 Glucose Oral Gel 15 Gm Of Glucse In 37.5 Gm Tube PO PRN PRN Hypoglycemia Protocol Hydrochlorothiazide 25 mg 08/19/21 09:00 08/19/21 09:17 Hydrochlorothiazide 25 Mg Tablet PO 09/18/21 08:59 25 mg DAILY CHERYL Administration Dextrose 1,000 mls @ 100 mls/hr 08/16/21 21:38 Dextrose 5% 1,000 Ml IVPB PRN PRN Hypoglycemia Protocol Cefazolin Sodium 2 gm in 50 mls @ 100 mls/hr 08/19/21 08:00 08/20/21 07:01 Ancef 2 Gm/D5w 50 Ml IVPB Infused Q8HR CHERYL Infusion Insulin Aspart 3 - 6 units 08/17/21 08:00 08/19/21 18:19 Insulin Aspart (*Bkc) 100 Units/Ml SUB-Q Not Given T[facility] Protocol Lisinopril 40 mg 08/19/21 09:00 08/19/21 09:17 Lisinopril 20 Mg Tablet PO 09/18/21 08:59 40 mg DAILY CHERYL Administration Morphine Sulfate 2 mg 08/16/21 21:47 Morphine Sulfate (*Crx) 2 Mg/Ml Inj IV PUSH Q4H PRN Pain Rated 7-10 Naloxone HCl 0.1 mg 08/16/21 21:47 Naloxone Hcl 0.4 Mg/Ml Vial IV PUSH Q2M PRN Opiate Reversal Nicotine 1 patch
[2021-08-20 08:10] LABS: Glucose Point of Care 159 mg/dl (65-105)
[2021-08-20] MEDS: hydroCHLOROthiazide 25 MG TABLET PO (08:40)
[2021-08-20] MEDS: SACCHAROMYCES BOULARDII 250 MG CAPSULE PO ×2 (08:40→18:14)
[2021-08-20] MEDS: ASCORBIC ACID 500 MG TABLET PO (08:40)
[2021-08-20] MEDS: lisinopriL 20 MG TABLET 40 MG PO (08:40)
--- NOTE | 2021-08-20 10:30 | PM.IMPN ---
Progress Note: A&P Assessment and Plan (1) Septic arthritis of shoulder, left: Code(s): M00.9 - Pyogenic arthritis, unspecified Status: Acute Assessment and Plan: MRI of the shoulder shows large glenohumeral joint effusion with severe subacromial/subdeltoid bursitis, thickness rotator cuff tear, tear of the proximal biceps tendon Orthopedics consulted thank you for your help Drain placed in US which drained 5ml of yellow fluid 08/17/21 Shin-close drain in place with small amount of yellow clear drainage, still draining Cultures no growth, many white blood cells present, but still pending Labs shows cloudy yellow fluid with 49544 RBC, 38883 Nuc cells, neutrophils 94, with no crystals WBCs 9.3 IV cefazolin day 2 Trend vital signs and labs Remains afebrile (2) Purpura: Code(s): D69.2 - Other nonthrombocytopenic purpura Status: Acute Assessment and Plan: Noted on the bilateral lower extremities Getting better, still a couple of small sites on the bilateral lower extremities Could be from Eliquis Change Eliquis to Lovenox Consult Dr. Becker Recommended that the patient stay on lovenox for 4 weeks and then follow up for Xarelto there after (3) DVT (deep venous thrombosis): Code(s): I82.409 - Acute embolism and thrombosis of unspecified deep veins of unspecified lower extremity Status: Acute Assessment and Plan: DVT noted in the right gastrocnemius vein per venous Doppler from 08/09/2021 Lovenox full dose q.12 Hold home Eliquis Consult Dr. Becker Per hematology continue lovenox for 4 weeks then change to Xarelto (4) Type 2 diabetes mellitus without complications: Qualifiers: Diabetes mellitus correction insulin use: without correction use Qualified Code(s): E11.9 - Type 2 diabetes mellitus without complications Code(s): E11.9 - Type 2 diabetes mellitus without complications Status: Acute Assessment and Plan: Current glucose 136 Hold home medications Accu-Cheks AC and HS Tried glucose Insulin sliding scale Adjust therapy as indicated (5) Essential hypertension: Code(s): I10 - Essential (primary) hypertension Status: Chronic Assessment and Plan: Current blood pressure 119/68 Hold home medication for now Trend blood pressure Adjust therapy as indicated (6) Current smoker: Code(s): F17.200 - Nicotine dependence, unspecified, uncomplicated Status: Acute Assessment and Plan: Smoking cessation education provided for 5 minutes Nicotine patch and gum provided Time Spent With Patient Time with patient: Greater than 35 minutes Subjective Date/time seen: 08/20/21 1030 Interval history: 08/20/21 1030 Patient is feeling ok. He is concerned about being restarted on his blood pressure medications. Will stop those at this time. His wants me to check his A1c. They had no further questions at this time. Cultures are still pending. He denies any chest pain, shortness breast, nausea, vomiting, diarrhea, constipation, weakness or fatigue. 08/19/21 1045 Patient was sitting in the chair. he stated that he is feeling better. He denies any chest pain, shortness of breath, nausea, vomiting, diarrhea, or constipation. His was at the nurses station requesting probiotic, which has been added. Shin-Close drain still in place, very little yellow clear drainage present. 08/18/21 0810 Patient states that he is doing better today. He does still have a pain 3/10. He stated that he has been walking around however at seems to be a little weak. He denies any chest pain, shortness of breath, nausea, vomiting, diarrhea or constipation. He did have a bowel movement yesterday and stated that it was fine. Labs look to be doing well awaiting culture results from the synovial fluid. Updated patient with current care plan o
--- NOTE | 2021-08-20 10:30 | P.PNIM_ITS ---
Progress Note: A&P Assessment and Plan (1) Septic arthritis of shoulder, left: Code(s): M00.9 - Pyogenic arthritis, unspecified Status: Acute Assessment and Plan: * MRI of the shoulder shows large glenohumeral joint effusion with severe subacromial/subdeltoid bursitis, thickness rotator cuff tear, tear of the proximal biceps tendon * Orthopedics consulted thank you for your help * Drain placed in US which drained 5ml of yellow fluid 08/17/21 * Shin-close drain in place with small amount of yellow clear drainage, still draining * Cultures no growth, many white blood cells present, but still pending * Labs shows cloudy yellow fluid with 61909 RBC, 68233 Nuc cells, neutrophils 94, with no crystals * WBCs 9.3 * IV cefazolin day 2 * Trend vital signs and labs * Remains afebrile (2) Purpura: Code(s): D69.2 - Other nonthrombocytopenic purpura Status: Acute Assessment and Plan: * Noted on the bilateral lower extremities * Getting better, still a couple of small sites on the bilateral lower extremities * Could be from Eliquis * Change Eliquis to Lovenox * Consult Dr. Becker * Recommended that the patient stay on lovenox for 4 weeks and then follow up for Xarelto there after (3) DVT (deep venous thrombosis): Code(s): I82.409 - Acute embolism and thrombosis of unspecified deep veins of unspecified lower extremity Status: Acute Assessment and Plan: * DVT noted in the right gastrocnemius vein per venous Doppler from 08/09/2021 * Lovenox full dose q.12 * Hold home Eliquis * Consult Dr. 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 use Qualified Code(s): E11.9 - Type 2 diabetes mellitus without complications Code(s): E11.9 - Type 2 diabetes mellitus without complications Status: Acute Assessment and Plan: * Current glucose 136 * Hold home medications * Accu-Cheks AC and HS * Tried glucose * Insulin sliding scale * Adjust therapy as indicated (5) Essential hypertension: Code(s): I10 - Essential (primary) hypertension Status: Chronic Assessment and Plan: * Current blood pressure 119/68 * Hold home medication for now * Trend blood pressure * Adjust therapy as indicated (6) Current smoker: Code(s): F17.200 - Nicotine dependence, unspecified, uncomplicated Status: Acute Assessment and Plan: * Smoking cessation education provided for 5 minutes * Nicotine patch and gum provided Time Spent With Patient Time with patient: Greater than 35 minutes Subjective Date/time seen: 08/20/21 1030 Interval history: 08/20/21 1030 Patient is feeling ok. He is concerned about being restarted on his blood pressure medications. Will stop those at this time. His wants me to check his A1c. They had no further questions at this time. Cultures are still pending. He denies any chest pain, shortness breast, nausea, vomiting, diarrhea, constipation, weakness or fatigue. 08/19/21 1045 Patient was sitting in the chair. he stated that he is feeling better. He denies any chest pain, shortness of breath, nausea, vomiting, diarrhea, or constipation. His was at the nurses station requesting probiotic, which
[2021-08-20 11:52] LABS: Glucose Point of Care 157 mg/dl (65-105)
[2021-08-20 13:45] VITALS: BP 106/59; PULSE 109; RESP 20; TEMP 36.7; O2SAT 97
[2021-08-20 13:47] VITALS: BP 106/59; PULSE 109; RESP 20; TEMP 36.7; O2SAT 97
[2021-08-20 16:51] LABS: Glucose Point of Care 136 mg/dl (65-105)
[2021-08-20 21:30] VITALS: BP 113/64; PULSE 60; RESP 18; TEMP 36.4; O2SAT 96
[2021-08-20 22:00] LABS: Glucose Point of Care 154 mg/dl (65-105)
[2021-08-21] MEDS: ACETAMINOPHEN 500 MG TABLET PO ×3 (01:39→21:02)
[2021-08-21] MEDS: ceFAZolin 2 GM/D5W 50 ML 2 GM/50 ML BAG IVPB ×3 (05:20→21:02)
[2021-08-21 05:30] VITALS: BP 122/70; PULSE 60; RESP 18; TEMP 36.1; O2SAT 100
[2021-08-21 06:15] LABS: Basophils Absolute Auto 0.1 K/mm3 (0.0-0.1); Basophils Percent Auto 0.9 % (0.2-1.2); Eosinophils Absolute Auto 0.2 K/mm3 (0-0.3); Eosinophils Percent Auto 2.5 % (0-4.4); Hematocrit 33.9 % (42.0-52.0); Hemoglobin 11.5 g/dL (14.0-18.0); Immature Granulocyte Absolute 0.06 K/mm3 (0.00-0.031); Immature Granulocyte Percent A 0.7 % (0-0.5); Lymphocytes Percent Auto 42.3 % (18.3-44.2); Mean Corpuscular HGB Conc 33.9 g/dl (32-36); Mean Corpuscular Hemoglobin 31.9 pg (26-34); Mean Corpuscular Volume 93.9 fl (80-100); Mean Platelet Volume 9.1 fl (7.4-10.4); Monocytes Absolute Auto 0.8 K/mm3 (0.1-0.6); Monocytes Percent Auto 9.7 % (2.6-8.5); Neutrophils Absolute Auto 3.7 K/mm3 (1.3-6.7); Neutrophils Percent Auto 43.9 % (45.5-73.1); Platelet Count Result 337 k/mm3 (150-375); Red Blood Count 3.61 M/mm3 (4.6-6.20); Red Cell Distribution Width 12.8 % (11.5-14.5); White Blood Count 8.5 K/mm3 (4.5-10.0)
[2021-08-21 06:22] LABS: Alanine Aminotransferase 12 U/L (6-50); Albumin Level 3.3 g/dL (3.5-5.1); Alkaline Phosphatase 63 U/L (38-126); Anion Gap 2 mmol/L (8-16); Aspartate Amino Transferase 19 U/L (17-59); Bilirubin,Total 0.3 mg/dL (0.2-1.3); Blood Urea Nitrogen 15 mg/dL (9-20); Calcium 8.5 mg/dL (8.4-10.2); Carbon Dioxide 28 mmol/L (22-30); Chloride 106 mmol/L (98-107); Estimated CRCL calculation 136 ml/min; Estimated Glomerular Filt Rate > 60; Glucose 136 mg/dL (65-110); Magnesium 1.9 mg/dL (1.6-2.3); Potassium 3.9 mmol/L (3.4-5.0); Sodium 136 mmol/L (137-145)
[2021-08-21 06:29] LABS: Hemoglobin A1C 6.6 % (<5.7)
--- NOTE | 2021-08-21 08:20 | PM.PNORT ---
Progress Note: A&P Assessment and Plan (1) Septic arthritis of shoulder, left: Code(s): M00.9 - Pyogenic arthritis, unspecified Status: Acute Plan Will wait one more day to see if anything grows on the cultures. There is virtually no drainage at this point so drain can be removed later today. Plan discharge home tomorrow on four weeks of Augmentin p.o. Will need to follow up in the office in two weeks just to check his shoulder. Will continue with outpatient therapy to try and restore motion and strength left shoulder. Following. Subjective Subjective Date/Time Seen: 08/21/21 08:20 Principal diagnosis: Dx: Left shoulder sepsis Interval history: HD 4 percutaneous drainage left shoulder. Currently no growth on specimen. Exam Const: General: cooperative, alert and awake Orientation/consciousness: patient oriented x3 HENMT: Head: normal to inspection Ears: hearing grossly normal bilaterally Resp: Effort & Inspection: able to speak in complete sentences GI: Inspection: non-distended GI Palp: No abdominal tenderness Neuro: General: patient oriented x3 Extrem: Other: Exam of Left shoulder shows no swelling. Does have same limitation of motion but no irritability until you get to the extremes. Other than that grossly neurovascular status intact left upper extremity. Psych: Mental Status: mental status grossly normal Objective Data Vital Signs Vital Signs: Vital Signs - 24 hr 08/20/21 13:45 08/20/21 13:47 08/20/21 21:30 Temperature 98.0 F 98.0 F 97.6 F Pulse Rate 109 H 109 H 60 Respiratory Rate 20 20 18 Blood Pressure 106/59 L 106/59 L 113/64 Pulse Oximetry 97 97 96 08/21/21 05:30 Temperature 96.9 F L Pulse Rate 60 Respiratory Rate 18 Blood Pressure 122/70 Pulse Oximetry 100 Intake/Output Intake/Output: Intake & Output 08/18/21 08/19/21 08/20/21 08/21/21 23:59 23:59 23:59 23:59 Intake Total 2019 1274 / 1274 926 / 926 250 / 250 Output Total 65 65 1320 / 1320 775 / 775 1000 / 1000 Balance 1954 / 1954 -46 / -46 151 / 151 -750 / -750 Meds/Results Medications: Active Medications Generic Name Dose Route Start Last Admin Trade Name Freq PRN Reason Stop Dose Admin Acetaminophen 500 mg 08/18/21 20:45 08/21/21 01:39 Acetaminophen 500 Mg Tablet PO 500 mg Q6H PRN Administration Mild Pain (1-3) Hydrocodone Bitart/Acetaminophen 1 tab 08/16/21 21:47 08/19/21 21:41 Hydrocodone/Acetaminophen (*Crx) 5-325 Mg Tablet PO 1 tab Q4H PRN Administration Moderate Pain (4-6) Ascorbic Acid 500 mg 08/19/21 09:00 08/20/21 08:40 Ascorbic Acid 500 Mg Tablet PO 09/18/21 08:59 500 mg DAILY CHERYL Administration Dextrose 12.5 gm 08/16/21 21:38 Dextrose 50% 25 Gm/50 Ml Syringe IV PUSH PRN PRN Hypoglycemia Protocol Enoxaparin Sodium 80 mg 08/17/21 07:00 08/20/21 18:14 Enoxaparin 80 Mg/0.8 Ml Syringe SUB-Q 80 mg Q12H CHERYL Administration Glucagon 1 mg 08/16/21 21:38 Glucagon For Inj 1 Mg Vial IM PRN PRN Hypoglycemia Protocol Glucose 15 gm 08/16/21 21:38 Glucose Oral Gel 15 Gm Of Glucse In 37.5 Gm Tube PO PRN PRN Hypoglycemia Protocol Dextrose 1,000 mls @ 100 mls/hr 08/16/21 21:38 Dextrose 5% 1,000 Ml IVPB PRN PRN Hypoglycemia Protocol Cefazolin Sodium 2 gm in 50 mls @ 100 mls/hr 08/19/21 08:00 08/21/21 05:51 Ancef 2 Gm/D5w 50 Ml IVPB Infused Q8HR [facility] Infusion Insulin Aspart 3 - 6 units 08/17/21 08:00 08/21/21 08:10 Insulin Aspart (*Bkc) 100 Units/Ml SUB-Q Not Given TIDWM [facility] Protocol Morphine Sulfate 2 mg 08/16/21 21:47 Morphine Sulfate (*Crx) 2 Mg/Ml Inj IV PUSH Q4H PRN Pain Rated 7-10 Naloxone HCl 0.1 mg 08/16/21 21:47 Naloxone Hcl 0.4 Mg/Ml Vial IV PUSH Q2M PRN Opiate Reversal Nicotine 1 patch 08/17/21 09:00 08/20/21 08:41 Nicotine (*Pbkc) 21 Mg Patch TRANSDERM Not Given QAM
[2021-08-21 08:42] LABS: Glucose Point of Care 151 mg/dl (65-105)
--- NOTE | 2021-08-21 08:45 | PM.DS ---
DS: Admitting Diagnosis Discharge Date 08/22/21 0845 Admitting Diagnosis Septic Joint DS: Discharge Diagnosis Discharge Diagnosis (1) Septic arthritis of shoulder, left: Code(s): M00.9 - Pyogenic arthritis, unspecified Status: Acute Assessment and Plan: MRI of the shoulder shows large glenohumeral joint effusion with severe subacromial/subdeltoid bursitis, thickness rotator cuff tear, tear of the proximal biceps tendon Orthopedics consulted thank you for your help Drain placed in US which drained 5ml of yellow fluid 08/17/21 Shin-close drain in place with small amount of yellow clear drainage, still draining Dr. Lewis stated that drain can be removed Cultures no growth, many white blood cells present, will fully result tomorrow Labs shows cloudy yellow fluid with 72307 RBC, 13958 Nuc cells, neutrophils 94, with no crystals WBCs 10.7 IV cefazolin day 4 Change to oral antibiotics upon DC, Augmentin for 4 weeks Trend vital signs and labs Remains afebrile (2) Purpura: Code(s): D69.2 - Other nonthrombocytopenic purpura Status: Acute Assessment and Plan: Noted on the bilateral lower extremities Getting better, still a couple of small sites on the bilateral lower extremities Could be from Eliquis Change Eliquis to Lovenox Consult Dr. Becker Recommended that the patient stay on lovenox for 4 weeks and then follow up for Xarelto there after (3) DVT (deep venous thrombosis): Code(s): I82.409 - Acute embolism and thrombosis of unspecified deep veins of unspecified lower extremity Status: Acute Assessment and Plan: DVT noted in the right gastrocnemius vein per venous Doppler from 08/09/2021 Lovenox full dose q.12 Hold home Eliquis Consult Dr. Becker Per hematology continue lovenox for 4 weeks then change to Xarelto (4) Type 2 diabetes mellitus without complications: Qualifiers: Diabetes mellitus shelter insulin use: without shelter use Qualified Code(s): E11.9 - Type 2 diabetes mellitus without complications Code(s): E11.9 - Type 2 diabetes mellitus without complications Status: Acute Assessment and Plan: Current glucose 138 A1c 6.6 Hold home medications Accu-Cheks AC and HS Tried glucose Insulin sliding scale Adjust therapy as indicated (5) Essential hypertension: Code(s): I10 - Essential (primary) hypertension Status: Chronic Assessment and Plan: Current blood pressure 125/65 Hold home medication for now Trend blood pressure Adjust therapy as indicated (6) Current smoker: Code(s): F17.200 - Nicotine dependence, unspecified, uncomplicated Status: Acute Assessment and Plan: Smoking cessation education provided for 5 minutes Nicotine patch and gum provided DS: Summary Hospital Course Hospital Course: Patient is a 65-year-old male with a past medical history of cellulitis, DVT, diabetes, hypertension, hyperlipidemia who presented the ED from Dr. Segura's office for septic left shoulder. MRI of the shoulder showed old I do effusion. Patient went to IR where a Shin-Close drain was placed and 5 mL of yellow fluid was removed. Cultures were taken however show no growth today. Patient was started on IV cefazolin. Patient was also noted to have some purpura and petechiae on his bilateral lower extremities. Patient was noted to have a DVT in his leg however he was already on Eliquis which was stopped and changed to Lovenox. Hematology was consulted and patient will need to go home on Lovenox for 30 days. After that patient will need to follow up Dr. Fuchs and will be changed to Xarelto. Blood pressures and lab work have been controlled. A1c was 6.6. Patient does have concern about his blood pressure being so low and still being on medications however it was talked about his primary care office he shows a adine
--- NOTE | 2021-08-21 08:45 | P.DS_ITS ---
DS: Admitting Diagnosis Discharge Date 08/22/21 0845 Admitting Diagnosis Septic Joint DS: Discharge Diagnosis Discharge Diagnosis (1) Septic arthritis of shoulder, left: Code(s): M00.9 - Pyogenic arthritis, unspecified Status: Acute Assessment and Plan: * MRI of the shoulder shows large glenohumeral joint effusion with severe subacromial/subdeltoid bursitis, thickness rotator cuff tear, tear of the proximal biceps tendon * Orthopedics consulted thank you for your help * Drain placed in US which drained 5ml of yellow fluid 08/17/21 * Shin-close drain in place with small amount of yellow clear drainage, still draining * Dr. Lewis stated that drain can be removed * Cultures no growth, many white blood cells present, will fully result tomorrow * Labs shows cloudy yellow fluid with 96492 RBC, 63108 Nuc cells, neutrophils 94, with no crystals * WBCs 10.7 * IV cefazolin day 4 * Change to oral antibiotics upon DC, Augmentin for 4 weeks * Trend vital signs and labs * Remains afebrile (2) Purpura: Code(s): D69.2 - Other nonthrombocytopenic purpura Status: Acute Assessment and Plan: * Noted on the bilateral lower extremities * Getting better, still a couple of small sites on the bilateral lower extremities * Could be from Eliquis * Change Eliquis to Lovenox * Consult Dr. Becker * Recommended that the patient stay on lovenox for 4 weeks and then follow up for Xarelto there after (3) DVT (deep venous thrombosis): Code(s): I82.409 - Acute embolism and thrombosis of unspecified deep veins of unspecified lower extremity Status: Acute Assessment and Plan: * DVT noted in the right gastrocnemius vein per venous Doppler from 08/09/2021 * Lovenox full dose q.12 * Hold home Eliquis * Consult Dr. 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 use Qualified Code(s): E11.9 - Type 2 diabetes mellitus without complications Code(s): E11.9 - Type 2 diabetes mellitus without complications Status: Acute Assessment and Plan: * Current glucose 138 * A1c 6.6 * Hold home medications * Accu-Cheks AC and HS * Tried glucose * Insulin sliding scale * Adjust therapy as indicated (5) Essential hypertension: Code(s): I10 - Essential (primary) hypertension Status: Chronic Assessment and Plan: * Current blood pressure 125/65 * Hold home medication for now * Trend blood pressure * Adjust therapy as indicated (6) Current smoker: Code(s): F17.200 - Nicotine dependence, unspecified, uncomplicated Status: Acute Assessment and Plan: * Smoking cessation education provided for 5 minutes * Nicotine patch and gum provided DS: Summary Hospital Course Hospital Course: Patient is a 65-year-old male with a past medical history of cellulitis, DVT, diabetes, hypertension, hyperlipidemia who presented the ED from Dr. Segura's office for septic left shoulder. MRI of the shoulder showed old I do effusion. Patient went to IR where a Shin-Close drain was placed and 5 mL of yellow fluid was removed. Cultures were taken however show no growth today. Patient was started on IV cefazolin. Patient was also noted to have some purpura and petechiae
[2021-08-21] MEDS: ASCORBIC ACID 500 MG TABLET PO (09:27)
[2021-08-21] MEDS: ENOXAPARIN 80 MG/0.8 ML SYRINGE SUB-Q ×2 (09:27→16:59)
[2021-08-21] MEDS: SACCHAROMYCES BOULARDII 250 MG CAPSULE PO ×2 (09:27→16:58)
--- NOTE | 2021-08-21 09:30 | P.PNIM_ITS ---
Progress Note: A&P Assessment and Plan (1) Septic arthritis of shoulder, left: Code(s): M00.9 - Pyogenic arthritis, unspecified Status: Acute Assessment and Plan: * MRI of the shoulder shows large glenohumeral joint effusion with severe subacromial/subdeltoid bursitis, thickness rotator cuff tear, tear of the proximal biceps tendon * Orthopedics consulted thank you for your help * Drain placed in US which drained 5ml of yellow fluid 08/17/21 * Shin-close drain in place with small amount of yellow clear drainage, still draining * Dr. Lewis stated that drain can be removed * Cultures no growth, many white blood cells present, will fully result tomorrow * Labs shows cloudy yellow fluid with 96288 RBC, 00163 Nuc cells, neutrophils 94, with no crystals * WBCs 8.5 * IV cefazolin day 3 * Change to oral antibiotics upon DC, Augmentin for 4 weeks * Trend vital signs and labs * Remains afebrile (2) Purpura: Code(s): D69.2 - Other nonthrombocytopenic purpura Status: Acute Assessment and Plan: * Noted on the bilateral lower extremities * Getting better, still a couple of small sites on the bilateral lower extremities * Could be from Eliquis * Change Eliquis to Lovenox * Consult Dr. Becker * Recommended that the patient stay on lovenox for 4 weeks and then follow up for Xarelto there after (3) DVT (deep venous thrombosis): Code(s): I82.409 - Acute embolism and thrombosis of unspecified deep veins of unspecified lower extremity Status: Acute Assessment and Plan: * DVT noted in the right gastrocnemius vein per venous Doppler from 08/09/2021 * Lovenox full dose q.12 * Hold home Eliquis * Consult Dr. 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 Qualified Code(s): E11.9 - Type 2 diabetes mellitus without complications Code(s): E11.9 - Type 2 diabetes mellitus without complications Status: Acute Assessment and Plan: * Current glucose 136 * A1c 6.6 * Hold home medications * Accu-Cheks AC and HS * Tried glucose * Insulin sliding scale * Adjust therapy as indicated (5) Essential hypertension: Code(s): I10 - Essential (primary) hypertension Status: Chronic Assessment and Plan: * Current blood pressure 122/70 * Hold home medication for now * Trend blood pressure * Adjust therapy as indicated (6) Current smoker: Code(s): F17.200 - Nicotine dependence, unspecified, uncomplicated Status: Acute Assessment and Plan: * Smoking cessation education provided for 5 minutes * Nicotine patch and gum provided Time Spent With Patient Time with patient: Greater than 35 minutes Subjective Date/time seen: 08/21/21 09:30 Interval history: 08/21/21929 Patient is doing about the same today. He did state that he still having some sweats at night and a little weakness and fatigue however breathing seems to be improving. He is ready to go home however he did state that he knows it will be done tomorrow. He denies any chest pain, shortness breast, nausea, vomiting, diarrhea, constipation, weakness and fatigue. Once again reiterated the need to stop smoking. Went over his results from his A1c as well. Patient is also
--- NOTE | 2021-08-21 09:30 | PM.IMPN ---
Progress Note: A&P Assessment and Plan (1) Septic arthritis of shoulder, left: Code(s): M00.9 - Pyogenic arthritis, unspecified Status: Acute Assessment and Plan: MRI of the shoulder shows large glenohumeral joint effusion with severe subacromial/subdeltoid bursitis, thickness rotator cuff tear, tear of the proximal biceps tendon Orthopedics consulted thank you for your help Drain placed in US which drained 5ml of yellow fluid 08/17/21 Shin-close drain in place with small amount of yellow clear drainage, still draining Dr. Lewis stated that drain can be removed Cultures no growth, many white blood cells present, will fully result tomorrow Labs shows cloudy yellow fluid with 71835 RBC, 98637 Nuc cells, neutrophils 94, with no crystals WBCs 8.5 IV cefazolin day 3 Change to oral antibiotics upon DC, Augmentin for 4 weeks Trend vital signs and labs Remains afebrile (2) Purpura: Code(s): D69.2 - Other nonthrombocytopenic purpura Status: Acute Assessment and Plan: Noted on the bilateral lower extremities Getting better, still a couple of small sites on the bilateral lower extremities Could be from Eliquis Change Eliquis to Lovenox Consult Dr. Becker Recommended that the patient stay on lovenox for 4 weeks and then follow up for Xarelto there after (3) DVT (deep venous thrombosis): Code(s): I82.409 - Acute embolism and thrombosis of unspecified deep veins of unspecified lower extremity Status: Acute Assessment and Plan: DVT noted in the right gastrocnemius vein per venous Doppler from 08/09/2021 Lovenox full dose q.12 Hold home Eliquis Consult Dr. Becker Per hematology continue lovenox for 4 weeks then change to Xarelto (4) Type 2 diabetes mellitus without complications: Qualifiers: Diabetes mellitus tank terminal gauger insulin use: without care home use Qualified Code(s): E11.9 - Type 2 diabetes mellitus without complications Code(s): E11.9 - Type 2 diabetes mellitus without complications Status: Acute Assessment and Plan: Current glucose 136 A1c 6.6 Hold home medications Accu-Cheks AC and HS Tried glucose Insulin sliding scale Adjust therapy as indicated (5) Essential hypertension: Code(s): I10 - Essential (primary) hypertension Status: Chronic Assessment and Plan: Current blood pressure 122/70 Hold home medication for now Trend blood pressure Adjust therapy as indicated (6) Current smoker: Code(s): F17.200 - Nicotine dependence, unspecified, uncomplicated Status: Acute Assessment and Plan: Smoking cessation education provided for 5 minutes Nicotine patch and gum provided Time Spent With Patient Time with patient: Greater than 35 minutes Subjective Date/time seen: 08/21/21 09:30 Interval history: 08/21/21 09 Patient is doing about the same today. He did state that he still having some sweats at night and a little weakness and fatigue however breathing seems to be improving. He is ready to go home however he did state that he knows it will be done tomorrow. He denies any chest pain, shortness breast, nausea, vomiting, diarrhea, constipation, weakness and fatigue. Once again reiterated the need to stop smoking. Went over his results from his A1c as well. Patient is also aware that he will be going home on Augmentin which he is okay with doing to the scheduling purposes. 08/20/21 1030 Patient is feeling ok. He is concerned about being restarted on his blood pressure medications. Will stop those at this time. His wants me to check his A1c. They had no further questions at this time. Cultures are still pending. He denies any chest pain, shortness breast, nausea, vomiting, diarrhea, constipation, weakness or fatigue. 08/19/21 1045 Patient was sitting in the chair. he stated that he is feeli
[2021-08-21 12:03] LABS: Glucose Point of Care 195 mg/dl (65-105)
[2021-08-21 14:00] VITALS: BP 112/50; PULSE 67; RESP 18; TEMP 36.2; O2SAT 100
[2021-08-21 16:46] LABS: Glucose Point of Care 138 mg/dl (65-105)
[2021-08-21 21:40] LABS: Glucose Point of Care 153 mg/dl (65-105)
[2021-08-21 22:00] VITALS: BP 123/62; PULSE 65; RESP 16; TEMP 36.9; O2SAT 97
[2021-08-22] MEDS: ceFAZolin 2 GM/D5W 50 ML 2 GM/50 ML BAG IVPB (05:45)
[2021-08-22 05:46] LABS: Basophils Absolute Auto 0.1 K/mm3 (0.0-0.1); Basophils Percent Auto 0.7 % (0.2-1.2); Eosinophils Absolute Auto 0.2 K/mm3 (0-0.3); Eosinophils Percent Auto 1.6 % (0-4.4); Hematocrit 35.1 % (42.0-52.0); Hemoglobin 11.6 g/dL (14.0-18.0); Immature Granulocyte Absolute 0.06 K/mm3 (0.00-0.031); Immature Granulocyte Percent A 0.6 % (0-0.5); Lymphocytes Absolute Auto 3.72 K/mm3 (0.9-3.2); Lymphocytes Percent Auto 34.9 % (18.3-44.2); Mean Corpuscular Hemoglobin 31.7 pg (26-34); Mean Corpuscular Volume 95.9 fl (80-100); Mean Platelet Volume 8.9 fl (7.4-10.4); Monocytes Absolute Auto 0.8 K/mm3 (0.1-0.6); Monocytes Percent Auto 7.8 % (2.6-8.5); Neutrophils Absolute Auto 5.8 K/mm3 (1.3-6.7); Neutrophils Percent Auto 54.4 % (45.5-73.1); Platelet Count Result 313 k/mm3 (150-375); Red Blood Count 3.66 M/mm3 (4.6-6.20); Red Cell Distribution Width 12.8 % (11.5-14.5); White Blood Count 10.7 K/mm3 (4.5-10.0)
[2021-08-22 06:00] VITALS: BP 125/65; PULSE 63; RESP 16; TEMP 36.3; O2SAT 98
[2021-08-22 06:10] LABS: Alanine Aminotransferase 12 U/L (6-50); Albumin Level 3.5 g/dL (3.5-5.1); Alkaline Phosphatase 73 U/L (38-126); Anion Gap 3 mmol/L (8-16); Aspartate Amino Transferase 18 U/L (17-59); Bilirubin,Total 0.3 mg/dL (0.2-1.3); Blood Urea Nitrogen 17 mg/dL (9-20); Calcium 8.3 mg/dL (8.4-10.2); Carbon Dioxide 26 mmol/L (22-30); Chloride 106 mmol/L (98-107); Estimated CRCL calculation 116 ml/min; Estimated Glomerular Filt Rate > 60; Glucose 138 mg/dL (65-110); Magnesium 1.8 mg/dL (1.6-2.3); Sodium 135 mmol/L (137-145)
[2021-08-22 07:51] LABS: Glucose Point of Care 164 mg/dl (65-105)
[2021-08-22] MEDS: ENOXAPARIN 80 MG/0.8 ML SYRINGE SUB-Q (08:34)
[2021-08-22] MEDS: ASCORBIC ACID 500 MG TABLET PO (08:34)
[2021-08-22] MEDS: SACCHAROMYCES BOULARDII 250 MG CAPSULE PO (08:34)
--- NOTE | 2021-08-22 11:39 | PM.PNORT ---
Progress Note: A&P Assessment and Plan (1) Septic arthritis of shoulder, left: Code(s): M00.9 - Pyogenic arthritis, unspecified Status: Acute Plan 65-year-old male with septic left shoulder. Culture specimen still showing no growth. Drain was removed earlier today and dressing was applied. No drainage from the site during exam today. He will be on Augmentin for 4 weeks. He is also having home health come and see him after discharge. Home health PT/OT should address strength and mobility of the left shoulder as well. We also should see him in the office in 2 weeks for recheck on how he is doing. Subjective Subjective Date/Time Seen: 08/22/21 11:39 Principal diagnosis: Left shoulder sepsis Interval history: 65-year-old male who recently had the left shoulder drain removed. He denies any drainage from the site and is relatively pain-free at rest. He does have some stiffness in the shoulder with mobility. Review of Systems Constitutional: Constitutional: Reports as per HPI and Reports no additional constitutional complaints Exam Const: General: comfortable and no acute distress Resp: Effort & Inspection: normal respiratory effort Skin: General skin exam: normal color Extrem: Other: Exam of the left shoulder reveals limitation of motion but no irritability until and range of motion.? Dressing is clean and dry. Neurovascular status of the left upper extremity is unremarkable. Psych: Mental Status: mental status grossly normal Objective Data Vital Signs Vital Signs: Vital Signs - 24 hr 08/21/21 14:00 08/21/21 22:00 08/22/21 06:00 Temperature 97.2 F L 98.4 F 97.3 F L Pulse Rate 67 65 63 Respiratory Rate 18 16 16 Blood Pressure 112/50 L 123/62 125/65 Pulse Oximetry 100 97 98 Oxygen Delivery 08/22/21 08:00 Temperature Pulse Rate Respiratory Rate Blood Pressure Pulse Oximetry Oxygen Delivery Room Air Intake/Output Intake/Output: Intake & Output 08/19/21 08/20/21 08/21/21 08/22/21 23:59 23:59 23:59 23:59 Intake Total 0090 695 3868 530 Output Total 5135 939 8808 Balance -46 151 -1301 530 Meds/Results Medications: Active Medications Generic Name Dose Route Start Last Admin Trade Name Freq PRN Reason Stop Dose Admin Acetaminophen 500 mg 08/18/21 20:45 08/21/21 21:02 Acetaminophen 500 Mg Tablet PO 500 mg Q6H PRN Administration Mild Pain (1-3) Hydrocodone Bitart/Acetaminophen 1 tab 08/16/21 21:47 08/19/21 21:41 Hydrocodone/Acetaminophen (*Crx) 5-325 Mg Tablet PO 1 tab Q4H PRN Administration Moderate Pain (4-6) Ascorbic Acid 500 mg 08/19/21 09:00 08/22/21 08:34 Ascorbic Acid 500 Mg Tablet PO 09/18/21 08:59 500 mg DAILY CHERYL Administration Dextrose 12.5 gm 08/16/21 21:38 Dextrose 50% 25 Gm/50 Ml Syringe IV PUSH PRN PRN Hypoglycemia Protocol Enoxaparin Sodium 80 mg 08/17/21 07:00 08/22/21 08:34 Enoxaparin 80 Mg/0.8 Ml Syringe SUB-Q 80 mg Q12H CHERYL Administration Glucagon 1 mg 08/16/21 21:38 Glucagon For Inj 1 Mg Vial IM PRN PRN Hypoglycemia Protocol Glucose 15 gm 08/16/21 21:38 Glucose Oral Gel 15 Gm Of Glucse In 37.5 Gm Tube PO PRN PRN Hypoglycemia Protocol Dextrose 1,000 mls @ 100 mls/hr 08/16/21 21:38 Dextrose 5% 1,000 Ml IVPB PRN PRN Hypoglycemia Protocol Cefazolin Sodium 2 gm in 50 mls @ 100 mls/hr 08/19/21 08:00 08/22/21 06:15 Ancef 2 Gm/D5w 50 Ml IVPB Infused Q8HR CHERYL Infusion Insulin Aspart 3 - 6 units 08/17/21 08:00 08/22/21 07:50 Insulin Aspart (*Bkc) 100 Units/Ml SUB-Q Not Given TIDWM [facility] Protocol Morphine Sulfate 2 mg 08/16/21 21:47 Morphine Sulfate (*Crx) 2 Mg/Ml Inj IV PUSH Q4H PRN Pain Rated 7-10 Naloxone HCl 0.1 mg 08/16/21 21:47 Naloxone Hcl 0.4 Mg/Ml Vial IV PUSH Q2M PRN Opiate Reversal Nicotine 1 patch 08/17/21 09:00 08/22/21 08:35 Lina
[2021-08-22 11:40] LABS: Glucose Point of Care 170 mg/dl (65-105)
== END 2021-08-22 13:51 | disposition home or self-care (01) | DRG 550 ==
LOC: ANHED 18:23 → ANH3MEDSUR 21:19
PROVIDERS: Internal Medicine; Orthopaedic Surgery; Admitting Provider Student in an Organized Health Care Education/Training Program; Emergency Provider Emergency Medicine; PCP Family Medicine; Visit Provider Nurse Practitioner
DX: M00.9 Pyogenic arthritis, unspecified (principal); I82.461 Acute embolism and thrombosis of right calf muscular vein; D69.2 Other nonthrombocytopenic purpura; I10 Essential (primary) hypertension; F17.210 Nicotine dependence, cigarettes, uncomplicated; E11.9 Type 2 diabetes mellitus without complications; M19.90 Unspecified osteoarthritis, unspecified site; I25.10 Atherosclerotic heart disease of native coronary artery without angina pectoris; E78.2 Mixed hyperlipidemia; I25.2 Old myocardial infarction; Z90.49 Acquired absence of other specified parts of digestive tract; Z95.5 Presence of coronary angioplasty implant and graft
CPT/HCPCS: 36415; 73223; 75989; 80053; 82948; 83036; 83735; 85025; 85610; 85730; 87040; 87070; 87075; 87205; 89051; 89060; 97161; 99285; A9270; A9577; C1729; J0690; J1650

== ENCOUNTER 2021-12-25 10:09 | Emergency (ER) | payer MEDICARE, SELFPAY ==
[2021-12-25] VITALS (10 sets, daily range): BP systolic 123–146; BP diastolic 68–81; PULSE 64–74; RESP 14–25; TEMP 36.6–36.8; O2SAT 91–98
--- NOTE | ~2021-12-25 | XR_ITS ---
EXAMINATION: XR hip RT min 3V w AP pelvis DATE: 12/25/2021 13:01 INDICATION: Atraumatic right hip pain. Recent cellulitis. TECHNIQUE: Anteroposterior view of the pelvis and anteroposterior, frog leg and cross-table lateral v iews of the right hip were obtained. COMPARISON: None. FINDINGS: Alignment is normal. No fracture or suspected avascular necrosis. Mild osteoarthritis at the bilatera l hips. 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 Mild osteoarthritis at the bilateral sacral iliac joints. Ath erosclerotic calcifications of the arteries in the pelvis and proximal thighs. Postoperative change o f bilateral likely inguinal hernia repairs. IMPRESSION: 1. Mild osteoarthritis at the bilateral hip and sacroiliac joints. No acute osseous abnormality. Reviewed, dictated and finalized at location A. IMPRESSION: 1. Mild osteoarthritis at the bilateral hip and sacroiliac joints. No acute oss eous abnormality.
--- NOTE | ~2021-12-25 | US_ITS ---
EXAMINATION: US venous doppler LE DATE: 12/25/2021 13:03 INDICATION: Right lower limb pain and swelling TECHNIQUE: Grayscale ultrasound images without and with compression and Doppler ultrasound images of the right lower extremity veins were obtained. COMPARISON: None. FINDINGS: The visualized portions of right common femoral vein, profunda (deep) femoral vein, femoral vein, pop liteal vein, peroneal trunk, posterior tibial veins, peroneal veins and greater saphenous vein outflo w are patent. IMPRESSION: 1. No deep venous thrombosis in the right lower limb. Reviewed, dictated and finalized at location A.
--- NOTE | 2021-12-25 12:44 | ED.EXTPRO ---
HPI - Extremity Problem General Chief complaint: Extremity Problem,Nontraumatic Stated complaint: R sided body pain Time Seen by Provider: 12/25/21 12:01 History of Present Illness HPI Narrative: 66-year-old male with history of septic arthritis in his left shoulder months ago presents due to concern that he has been having increasing pain in his right lower extremity over the last few months, which worsens with long use. He states this started in the ankle, then his knee, and now his hip. He came in today because the pain was starting to get bad enough to the point where he needed a cane to walk, he is also concerned because he feels like his right lower extremity is still somewhat swollen, he is taking a blood thinner and has not been missing any doses of this. No fevers or chills. No trauma. Related Data Home Medications Medication Instructions Recorded Confirmed acetaminophen 500 mg tablet 500 mg PO Q6H PRN Pain 08/16/21 10/06/21 (Tylenol Extra Strength) ascorbate calcium (vitamin C) 500 500 mg PO DAILY 08/16/21 10/06/21 mg capsule alirocumab 75 mg/mL subcutaneous 75 mg subcut Q14D 10/06/21 10/06/21 pen injector (Praluent Pen) aspirin 81 mg tablet,delayed 81 mg PO DAILY 12/20/21 release (Adult Aspirin Regimen) xhcruxbrnxip-uau-gebrs acid-vit 1 tablet PO DAILY 12/20/21 K-lycop 400 mcg-20 mcg-370 mcg tablet (Men's 50 Plus Multivitamin) Allergies Allergy/AdvReac Type Severity Reaction Status Date / Time ceftriaxone [From Rocephin] Allergy Intermediate rash/itchin Verified 12/20/21 08:41 g metformin Allergy Unknown hot flashes Verified 12/20/21 08:41 methylprednisolone Allergy Unknown severe leg Verified 12/20/21 08:41 cramps simvastatin Allergy Unknown severe leg Verified 12/20/21 08:41 cramps [id number]-[id number] Reductase AdvReac Severe myopathy Verified 12/20/21 08:41 Inhibitor sertraline AdvReac Intermediate diarrhea, Verified 12/20/21 08:41 sleep disruption atorvastatin AdvReac myalgias Verified 12/20/21 08:41 rosuvastatin AdvReac myalgias Verified 12/20/21 08:41 eliquis Allergy Severe Rash, Uncoded 12/20/21 08:41 petechiae Review of Systems Review of Systems: CONST: No fever. HEENT: No sore throat C/V: No chest pain RESP: No cough GI: No nausea or vomiting : No dysuria. M/S: Right lower extremity pain and swelling SKIN: No rash. NEURO: [No headache or focal numbness or weakness] PSYCH: [No depression] [facility] Past Medical History Medical History Arthritis Blood clot in vein Coronary artery disease History of inferior SC. ct chest 05.27.21 calcified coronary arteries. Diabetes History of heart attack Mixed hyperlipidemia Septic arthritis Septic arthritis of shoulder, left Radiographically placed percutaneous drainage shoulder July 2020 Statin myopathy Type 2 diabetes mellitus Surgical History Surgical History Cubital tunnel syndrome, bilateral (2017) Status post release. History of appendectomy (2007) History of arthroscopy of left knee (2005) Meniscal repair. History of bilateral carpal tunnel release (2016) History of heart artery stent (2019) Inferior SC --> LUIS to proximal RCA. Staged PCI with LUIS to distal left circumflex. History of shoulder surgery Family History Family History Father Hypertension Family history of cardiovascular disease Mother Family history of malignant neoplasm of breast in first degree relative Other Family history of malignant neoplasm of breast Social History Social History Social History: Surrogate decision maker: Ashely Mullins, spouse. Code status: Full code. Smoking packs per day: 0.5 Smoking cigarettes per day: 10.0 Years smoked: 40 Smoking pack-years: 20.00 Smoking status: Marco Antonio
== END 2021-12-25 13:59 | disposition home or self-care (01) ==
PROVIDERS: Emergency Provider Emergency Medicine; PCP Family Medicine
DX: M25.851 Other specified joint disorders, right hip (principal); G89.29 Other chronic pain; M25.551 Pain in right hip; I25.10 Atherosclerotic heart disease of native coronary artery without angina pectoris; I25.2 Old myocardial infarction; E11.9 Type 2 diabetes mellitus without complications; E78.2 Mixed hyperlipidemia; M16.0 Bilateral primary osteoarthritis of hip; Z79.82 Long term (current) use of aspirin; F17.210 Nicotine dependence, cigarettes, uncomplicated; Z79.84 Long term (current) use of oral hypoglycemic drugs; Z79.02 Long term (current) use of antithrombotics/antiplatelets
CPT/HCPCS: 73502; 93971; 99284

== ENCOUNTER → 2022-01-09 09:08 | Outpatient (CLI) | payer MEDICARE, SELFPAY ==
--- NOTE | ~2022-01-09 | MR_ITS ---
EXAMINATION: MR hip RT wo con DATE: 01/09/2022 10:01 INDICATION: Right hip pain. TECHNIQUE: Magnetic resonance imaging (MRI) of the right hip was performed without intravenous contra st. COMPARISON: Pelvis and right hip radiographs 12/25/2021 FINDINGS: Bones/cartilage: There is lumbar dextrocurvature and moderate spondylosis. No fracture. There is moderate osteoarthrit is of the hips. Small [id number] images of right hip demonstrate partial-thickness cartilage loss, deep in the lateral and posterior joint, and marginal osteophytes. Labrum: There is a tear of the right acetabular labrum. Fluid: There is no hip joint effusion. Soft tissues: There is edema in the retroperitoneum bilaterally. The iliopsoas tendons are normal. There are partia l tears of the hamstring origins bilaterally. There is a complete tear of right gluteus minimus tendo n. There is a partial tear of right gluteus medius tendon. There is a partial tear of right vastus la teralis tendon. There is edema in the right gluteus medius, gluteus minimus, and vastus lateralis mus loco bellies, consistent with strains. There is severe right-sided trochanteric bursitis. There are pa rtial tears of left gluteus minimus and gluteus medius tendons. IMPRESSION: 1. Complete tear of right gluteus minimus tendon and partial tears of right gluteus medius and vastus lateralis tendons at right greater trochanter. Edema of these muscles, consistent with strains. 2. Severe right-sided trochanteric bursitis. 3. Moderate osteoarthritis of the hips. Reviewed, dictated and finalized at location A. STERED NURSE FETAL IMPRESSION: 1. Complete tear of right gluteus minimus tendon and partial tears of right glu teus medius and vastus lateralis tendons at right greater trochanter. Edema of these muscles, consistent with strains. 2. Severe right-sided trochanteric bursitis. 3. Moderate osteoarthritis of the hips.
== END ==
PROVIDERS: PCP Family Medicine; Visit Provider Family Medicine
DX: M25.551 Pain in right hip (principal)
CPT/HCPCS: 73721

== ENCOUNTER 2022-01-16 09:53 | Outpatient (CLI) | payer MEDICARE, SELFPAY ==
--- NOTE | ~2022-01-16 | XR_ITS ---
EXAMINATION: XR lg joint inject/asp w image DATE: 01/16/2022 12:12 INDICATION: Right hip pain. TECHNIQUE: A time-out was performed to verify the patient's name, date of , and procedure to b e performed. The procedure including the risks, benefits, and alternatives was discussed with the pat ient. Risks discussed included bleeding and infection. The patient understood the risks and agreed to proceed. The skin overlying the right trochanteric bursa was prepped and draped in usual sterile fa shion. Anesthetic was administered with 1% lidocaine subcutaneously. An 18 G needle was advanced un libby fluoroscopic guidance into the bursa. Fluid was aspirated. The needle was removed and the entry s ite was cleaned and dressed. There were no immediate complications. Fluoroscopy exposure time was 0. 1 minutes. The total number of images was 1. FINDINGS: Real-time fluoroscopy demonstrates the needle in the right trochanteric bursa. IMPRESSION: 1. Fluoroscopy guided right trochanteric bursa aspiration yielding 2 mL serosanguineous fluid. Reviewed, dictated and finalized at location A. ER'S MATE M IMPRESSION: 1. Fluoroscopy guided right trochanteric bursa aspiration yielding 2 mL serosan guineous fluid.
[2022-01-16 13:06] LABS: Appearance Synovial Fluid Turbid (Clear); Color Synovial Fluid Red (Colorless); Source Synovial Fluid Synovial fluid
[2022-01-16 13:07] LABS: Lymphocytes Synovial Fluid 2 %; Neutrophils Synovial Fluid 93 % (0-25)
[2022-01-16 13:08] LABS: Monocytes Synovial Fluid 5 %
[2022-01-16 13:29] LABS: Crystals Synovial Fluid None Seen (None Seen)
== END 2022-01-16 09:54 | disposition home or self-care (01) ==
PROVIDERS: PCP Family Medicine; Visit Provider Orthopaedic Surgery
DX: M25.551 Pain in right hip (principal); M25.412 Effusion, left shoulder
CPT/HCPCS: 20610; 77002; 87070; 87075; 87205; 89051; 89060

== ENCOUNTER → 2022-07-15 08:00 | Outpatient (CLI) | payer MEDICARE, SELFPAY ==
--- NOTE | ~2022-07-15 | CT_ITS ---
CT Scan of the Chest without Contrast: Clinical Indication: Lung cancer screening, personal history of tobacco dependence Technique: Contiguous sections were acquired throughout the chest without intravenous contrast. Dose reduction technique was used on this scan by utilizing automated exposure control and iterative recon struction technique. The dose-length product (DLP) was 129.29 mGy-cm. COMPARISON: 05/27/2021 and 12/05/2019 Findings: There is no evidence of any significant mediastinal, hilar or axillary lymphadenopathy. Atherosclerot ic calcifications of the aorta and coronary arteries are noted. There is no evidence of pleural or pericardial effusion. No pulmonary nodule identified. There is moderate emphysema, predominantly paraseptal. Images through the upper abdomen reveal probable adrenal hyperplasia, unchanged. Impression: Lung RADS 1: Negative. 12 month follow-up screening CT advised. Moderate emphysema, as detailed above. Reviewed, dictated and finalized at location . Impression: Lung RADS 1: Negative. 12 month follow-up screening CT advised. Moderate emphysema, as detailed above.
== END ==
PROVIDERS: PCP Internal Medicine Cardiovascular Disease; Visit Provider Physician Assistant
DX: Z12.2 Encounter for screening for malignant neoplasm of respiratory organs (principal); Z87.891 Personal history of nicotine dependence
CPT/HCPCS: 71271

== ENCOUNTER → 2022-07-15 08:13 | Outpatient (CLI) | payer MEDICARE, SELFPAY ==
--- NOTE | ~2022-07-15 | US_ITS ---
EXAMINATION: US aorta [facility] scrn DATE: 07/15/2022 09:09 CDT INDICATION: Abdominal aortic aneurysm screening TECHNIQUE: Grayscale, color Doppler, and pulsed Doppler images of the aorta and common iliac arteries were obtained. COMPARISON: None. FINDINGS: The proximal aorta measures 2.2 cm greatest sagittal dimension. The mid aorta measures 2 cm greatest sagittal dimension. The distal aorta measures 1.7 cm greatest sagittal dimension. The right common i nternal iliac artery measures 1 cm. The left common iliac artery measures 1 cm. IMPRESSION: 1. Normal caliber aorta without aneurysm. Reviewed, dictated and finalized at location A.
== END ==
PROVIDERS: PCP Family Medicine; Visit Provider Physician Assistant
DX: Z13.6 Encounter for screening for cardiovascular disorders (principal)
CPT/HCPCS: 76706